=== PATIENT | female | born 1940 | race Caucasian/White ===

== ENCOUNTER → 2016-11-02 | Outpatient (CLI) | payer BC ==
[~2016-11-02] MED LIST: ASPI81TA28 PO; BIOT10TA2 PO; CALCTAB5 PO; DVN80 PO; LEVO88TA PO; MULTCHW PO
--- NOTE | 2016-11-02 09:46 | DIAGNOSTIC IMAGING REPORT ---
RIGHT KNEE 4 OR MORE CLINICAL HISTORY: RIGHT MEDIAL KNEE PAIN Right COMPARISON: None. DISCUSSION: The bones and joint spaces appear intact. There is no evidence of fracture, dislocation or bony disease. There is no evidence for soft tissue swelling. IMPRESSION: Negative study. Electronically signed by: Arjun Rangel M.D. 11/02/2016 9:43 AM Dictated Date/Time: 11/02/2016 9:42 AM
== END | disposition home or self-care (01) ==
LOC: C.RDSM 09:17
PROVIDERS: ATTEND Physician Assistant
DX: M25.561 Pain in right knee (principal)

== ENCOUNTER → 2016-11-25 | Outpatient (CLI) | payer BC ==
[2016-11-25 12:11] LABS: THYROID STIMULATING HORMONE 0.598 uIu/ml (0.300-4.500)
== END | disposition home or self-care (01) ==
LOC: C.LAB 11:07
PROVIDERS: ATTEND Physician Assistant
DX: E03.9 Hypothyroidism, unspecified (principal)

== ENCOUNTER → 2017-02-01 | Outpatient (CLI) | payer BC ==
[2017-02-01 09:37] LABS: HEMATOCRIT 39.7 % (37-47); MEAN CELL VOLUME 90.8 fL (80-100); MEAN PLATELET VOLUME 10.2 fL (7.4-10.4); PLATELET COUNT 276 K/uL (130-400); RED BLOOD COUNT 4.37 M/uL (4.2-5.4); WHITE BLOOD COUNT 4.34 K/uL (4.8-10.8)
[2017-02-01 10:00] LABS: ALT/SGPT 27 U/L (12-78); AST/SGOT 26 U/L (15-37); BLOOD UREA NITROGEN 15 mg/dl (7-18); BUN/CREATININE RATIO 17.8 (10-20); CARBON DIOXIDE 28 mmol/L (21-32); CHLORIDE 109 mmol/L (98-107); CHOLESTEROL 211 mg/dl (0-200); CREATININE 0.83 mg/dl (0.60-1.20); GLUCOSE 81 mg/dl (70-99); POTASSIUM 4.5 mmol/L (3.5-5.1); SODIUM 143 mmol/L (136-145); TRIGLYCERIDES 112 mg/dl (0-150); VERY LOW DENSITY LIPOPROT CALC 22 mg/dl
[2017-02-01 10:11] LABS: CHOLESTEROL/HDL RATIO 2.6; HDL CHOLESTEROL 80 mg/dl; LDL CHOLESTEROL CALCULATED 109 mg/dl; THYROID STIMULATING HORMONE 0.726 uIu/ml (0.300-4.500)
== END | disposition home or self-care (01) ==
LOC: C.LAB 07:03
PROVIDERS: ATTEND Internal Medicine Cardiovascular Disease
DX: E78.5 Hyperlipidemia, unspecified (principal); I10 Essential (primary) hypertension; I25.10 Atherosclerotic heart disease of native coronary artery without angina pectoris; I44.4 Left anterior fascicular block; R00.2 Palpitations; Z95.5 Presence of coronary angioplasty implant and graft; E03.9 Hypothyroidism, unspecified

== ENCOUNTER → 2017-03-30 | Outpatient (CLI) | payer BC ==
--- NOTE | 2017-03-31 14:21 | MAMMOGRAPHY REPORT ---
BILATERAL DIGITAL SCREENING MAMMOGRAM WITH CAD: 03/30/2017 CLINICAL HISTORY: Routine screening. Patient has no complaints. TECHNIQUE: Bilateral CC, MLO, right ML and right XCCM views were obtained. Current study was also ev aluated with a Computer Aided Detection (CAD) system. COMPARISON: Comparison is made to exams dated: 06/19/2015 mammogram, 10/19/2012 mammogram, 07/30/2011 ma mmogram, and 05/28/2010 mammogram. BREAST COMPOSITION: The tissue of both breasts is extremely dense, which lowers the sensitivity of m ammography. FINDINGS: There are stable benign-appearing calcifications and minimal vascular calcifications in bot h breasts. No suspicious mass, architectural distortion or cluster of microcalcifications is seen. IMPRESSION: ACR BI-RADS CATEGORY 1: NEGATIVE There is no mammographic evidence of malignancy. A 1 year screening mammogram is recommended. The pa tient will receive written notification of the results. Approximately 10% of breast cancers are not detected with mammography. A negative mammographic report should not delay biopsy if a clinically suggestive mass is present. Sujata Zuniga M.D. ay/:03/30/2017 16:38:40 Fishing Instructor: Maria Luz Anderson, [facility] letter sent: Normal 1/2 BI-RADS Code: ACR BI-RADS Category 1: Negative
== END | disposition home or self-care (01) ==
LOC: C.MAMM 13:00
PROVIDERS: ATTEND Family Medicine
DX: Z12.31 Encounter for screening mammogram for malignant neoplasm of breast (principal)

== ENCOUNTER → 2017-08-06 | Outpatient (CLI) | payer BC ==
[2017-08-06 09:31] LABS: HEMATOCRIT 40.7 % (37-47); HEMOGLOBIN 13.9 g/dL (12.0-16.0); MEAN CELL VOLUME 90.6 fL (80-100); MEAN CORPUSCULAR HGB CONC 34.2 g/dl (32-36); MEAN PLATELET VOLUME 10.5 fL (7.4-10.4); PLATELET COUNT 252 K/uL (130-400); RED CELL DISTRIBUTION WIDTH CV 12.5 % (11.5-14.5); RED CELL DISTRIBUTION WIDTH SD 41.7 fL (36.4-46.3); WHITE BLOOD COUNT 4.79 K/uL (4.8-10.8)
[2017-08-06 09:57] LABS: ALBUMIN 3.9 gm/dl (3.4-5.0); ALT/SGPT 22 U/L (12-78); AST/SGOT 17 U/L (15-37); BLOOD UREA NITROGEN 15 mg/dl (7-18); CARBON DIOXIDE 29 mmol/L (21-32); CREATININE 0.83 mg/dl (0.60-1.20); GLUCOSE 84 mg/dl (70-99); POTASSIUM 4.5 mmol/L (3.5-5.1); SODIUM 139 mmol/L (136-145)
[2017-08-06 09:59] LABS: ALKALINE PHOSPHATASE 68 U/L (45-117); TOTAL PROTEIN 7.4 gm/dl (6.4-8.2)
== END | disposition home or self-care (01) ==
LOC: C.LAB 07:43
PROVIDERS: ATTEND Physician Assistant
DX: I25.10 Atherosclerotic heart disease of native coronary artery without angina pectoris (principal)

== ENCOUNTER → 2017-09-15 | Outpatient (CLI) | payer BC ==
[2017-09-15 10:02] LABS: EOS % 2.3 %; EOS ABS # 0.09 K/uL (0-0.5); HEMOGLOBIN 12.9 g/dL (12.0-16.0); LYMPH % 30.2 %; LYMPH ABS # 1.19 K/uL (1.2-3.4); MEAN CELL VOLUME 88.9 fL (80-100); MEAN CORPUSCULAR HGB CONC 34.9 g/dl (32-36); MEAN PLATELET VOLUME 9.5 fL (7.4-10.4); MONO % 7.6 %; NEUT % 59.9 %; NEUT ABS # 2.36 K/uL (1.4-6.5); PLATELET COUNT 218 K/uL (130-400); RED CELL DISTRIBUTION WIDTH CV 12.4 % (11.5-14.5); RED CELL DISTRIBUTION WIDTH SD 39.5 fL (36.4-46.3); WHITE BLOOD COUNT 3.94 K/uL (4.8-10.8)
[2017-09-15 10:30] LABS: BLOOD UREA NITROGEN 11 mg/dl (7-18); CALCIUM 8.9 mg/dl (8.5-10.1); CARBON DIOXIDE 28 mmol/L (21-32); CREATININE 0.85 mg/dl (0.60-1.20); GLUCOSE 144 mg/dl (70-99); POTASSIUM 4.5 mmol/L (3.5-5.1); SODIUM 139 mmol/L (136-145)
== END | disposition home or self-care (01) ==
LOC: C.LAB1850 09-14 12:24 → C.LAB 09:21
PROVIDERS: ATTEND Family Medicine
DX: R42 Dizziness and giddiness (principal)

== ENCOUNTER → 2017-10-08 | Outpatient (CLI) | payer BC ==
--- NOTE | 2017-10-08 10:19 | DIAGNOSTIC IMAGING REPORT ---
CERVICAL SPINE 4 VIEWS HISTORY: M54.2 Cervicalgia COMPARISON: None. FINDINGS: The cervical spine is visualized from C1 through the superior endplate of T1. There is no fracture. No subluxation. Mild disc space narrowing at C3-C4. Moderate disc space narrowing at C5-C6 and C6-C7 with small endplate osteophytes. Mild facet degenerative changes throughout the cervical spine. Straightening of the cervical spine. Bilateral carotid bulb calcifications. Prevertebral soft tissues and the atlantodens interval are intact. IMPRESSION: No fracture or subluxation within the cervical spine. Mild to moderate degenerative changes as described above. Electronically signed by: Fritz Kent M.D. 10/08/2017 10:18 AM Dictated Date/Time: 10/08/2017 10:16 AM
== END | disposition home or self-care (01) ==
LOC: C.RAD1850 09:39
PROVIDERS: ATTEND Family Medicine
DX: M54.2 Cervicalgia (principal)

== ENCOUNTER 2018-02-03 10:02 | Emergency (ER) | payer BC ==
[~2018-02-03] VITALS: Ht 160 cm; Wt 48.7 kg
[2018-02-03 10:37] LABS: EOS % 2.7 %; EOS ABS # 0.14 K/uL (0-0.5); HEMATOCRIT 43.4 % (37-47); IG# 0.01 K/uL (0.00-0.02); LYMPH % 39.3 %; LYMPH ABS # 2.01 K/uL (1.2-3.4); MEAN CELL VOLUME 89.1 fL (80-100); MEAN CORPUSCULAR HEMOGLOBIN 30.8 pg (25-34); MEAN CORPUSCULAR HGB CONC 34.6 g/dl (32-36); MEAN PLATELET VOLUME 9.8 fL (7.4-10.4); MONO % 11.4 %; MONO ABS # 0.58 K/uL (0.11-0.59); NEUT % 46.4 %; NEUT ABS # 2.37 K/uL (1.4-6.5); PLATELET COUNT 254 K/uL (130-400); RED CELL DISTRIBUTION WIDTH CV 12.6 % (11.5-14.5); RED CELL DISTRIBUTION WIDTH SD 40.6 fL (36.4-46.3); WHITE BLOOD COUNT 5.11 K/uL (4.8-10.8)
--- NOTE | 2018-02-03 10:43 | EMERGENCY ROOM VISIT NOTE ---
History Report prepared by Andrzej: Sarahy Mckenzie Under the Supervision of: Dr. Michelle Bahena M.D. First contact with patient: 10:20 Chief Complaint: CHEST PAIN Stated Complaint: CHEST PAIN - BOTH ARMS AND NECK History of Present Illness The patient is a 77 year old female who presents to the Emergency Room with complaints of intermittent chest pressure starting 3 days ago. The pain started while she was pulling a 100 ft rubber hose in the yard. She feels SOB with the chest pain. She has numb sensation going up her neck and down her arms. She currently does not have any pain. The pain was worse while she was shopping today. It improves after resting. She took 4 baby aspirin today. She denies any diaphoresis, cough, or trouble breathing with lying flat. She had an LAD stent placed 11 years ago. She has a history of osteopenia, high cholesterol, high blood pressure, and hypothyroidism. Her last thyroid test was found to be high. She has been fatigued recently. She walks 3 miles a day. She has leg cramping afterwards. Her calves ache in the evening since having her stent placed. She took her blood pressure medications today. She does not smoke. She has left ankle swelling at baseline. She is allergic to nitro. Source of History: patient Onset: 3 days ago Position: chest Quality: pressure Timing: intermittent Modifying Factors (Worsening): exertion Modifying Factors (Relieving): rest Associated Symptoms: + SOB, + fatigue, + numbness, No diaphoresis, No cough Review of Systems See HPI for pertinent positives & negatives. A total of 10 systems reviewed and were otherwise negative. Past Medical & Surgical Medical Problems: (1) Chest Pain Surgical Problems: (1) Hx of cholecystectomy (2) Hx of heart artery stent Family History Cancer FH: heart disease Hypertension Social History Smoking Status: Never Smoker Alcohol Use: none Marital Status: Occupation Status: retired Current/Historical Medications Scheduled Aspirin (Aspirin Ec), 81 MG PO DAILY Calcium Carbonate-Vitamin D (Calcium), 1 TAB PO TW Hydrochlorothiazide (Hctz), 0.5 TAB PO QAM Levothyroxine Sodium (Synthroid), 88 MCG PO DAILY Multiple Vitamins W/ Minerals (Centrum Silver), 1 TAB PO DAILY Pantoprazole Sodium (Protonix), 40 MG PO QAM Pravastatin Sod (Pravastatin Sodium), 10 MG PO HS Valsartan (Diovan), 80 MG PO BID Allergies Coded Allergies: Doxycycline (Verified Allergy, Unknown, rash , 02/03/18) Metoprolol (Verified Allergy, Unknown, severe rash over entire body, ) Penicillins (Verified Allergy, Unknown, rash, 02/03/18) Atorvastatin (Verified Adverse Reaction, Unknown, causes sereve weakness and chest pain, do not give, 02/03/18) Ezetimibe (Verified Adverse Reaction, Unknown, causes sereve weakness and chest pain, do not give, 02/03/18) Nitroglycerin (Verified Adverse Reaction, Unknown, severe drop in blood pressure , 02/03/18) Rosuvastatin (Verified Adverse Reaction, Unknown, causes sereve weakness and chest pain, do not give, 02/03/18) Physical Exam Vital Signs Date Time Temp Pulse Resp B/P (MAP) Pulse Ox O2 Delivery O2 Flow Rate FiO2 02/03/18 11:54 68 17 171/89 02/03/18 10:39 76 02/03/18 10:28 75 182/80 02/03/18 10:14 Room Air 02/03/18 10:08 36.6 74 17 187/104 100 Room Air Physical Exam Vital signs reviewed. General: Well-appearing female, in no significant distress. HEENT: No scleral icterus, PERRLA, neck supple. Atraumatic. Cardiovascular: Regular rate and rhythm, no extra sounds. Pulmonary: Clear to auscultation bilaterally, normal work of breathing. Abdomen: Soft, nontender, nondistended, positive bowel sounds. Musculoskeletal: Atraumatic, no pitting edema. Neurologic: Patient awake alert and oriented x 3 Skin: Warm, dry, no rash. Prominent varicosities surrounding the left ankle. Medical Decision & Procedures ER Provider Diagnostic Interpretation: X-ray results as stated below per interpretation by me and the radiologist: CHEST ONE VIEW PORTABLE HISTORY: Atypical chest pain COMPARISON: Chest 04/10/2016. FINDINGS: The lungs are clear. Cardiac silhouette is top normal in size. This remains unchanged. No pleural effusions. No pneumothorax. IMPRESSION: No significant change compared to the prior study. No acute process. Electronically signed by: Fritz Kent M.D. 02/03/2018 10:42 AM Dictated Date/Time: 02/03/2018 10:41 AM Laboratory Results 02/03/18 10:20 Red Blood Count 4.87, Mean Corpuscular Volume 89.1, Mean Corpuscular Hemoglobin 30.8, Mean Corpuscular Hemoglobin Concent 34.6, Mean Platelet Volume 9.8, Neutrophils (%) (Auto) 46.4, Lymphocytes (%) (Auto) 39.3, Monocytes (%) (Auto) 11.4, Eosinophils (%) (Auto) 2.7, Basophils (%) (Auto) 0.0, Neutrophils # (Auto ) 2.37, Lymphocytes # (Auto) 2.01, Monocytes # (Auto) 0.58, Eosinophils # (Auto ) 0.14, Basophils # (Auto) 0.00 02/03/18 10:20 Test 02/03/18 10:20 02/03/18 10:27 White Blood Count 5.11 K/uL (4.8-10.8) Red Blood Count 4.87 M/uL (4.2-5.4) Hemoglobin 15.0 g/dL (12.0-16.0) Hematocrit 43.4 % (37-47) Mean Corpuscular Volume 89.1 fL (80-100) Mean Corpuscular Hemoglobin 30.8 pg (25-34) Mean Corpuscular Hemoglobin Concent 34.6 g/dl (32-36) Platelet Count 254 K/uL (130-400) Mean Platelet Volume 9.8 fL (7.4-10.4) Neutrophils (%) (Auto) 46.4 % Lymphocytes (%) (Auto) 39.3 % Monocytes (%) (Auto) 11.4 % Eosinophils (%) (Auto) 2.7 % Basophils (%) (Auto) 0.0 % Neutrophils # (Auto) 2.37 K/uL (1.4-6.5) Lymphocytes # (Auto) 2.01 K/uL (1.2-3.4) Monocytes # (Auto) 0.58 K/uL (0.11-0.59) Eosinophils # (Auto) 0.14 K/uL (0-0.5) Basophils # (Auto) 0.00 K/uL (0-0.2) RDW Standard Deviation 40.6 fL (36.4-46.3) RDW Coefficient of Variation 12.6 % (11.5-14.5) Immature Granulocyte % (Auto) 0.2 % Immature Granulocyte # (Auto) 0.01 K/uL (0.00-0.02) Anion Gap 6.0 mmol/L (3-11) Est Creatinine Clear Calc Drug Dose 38.4 ml/min Estimated GFR () 68.7 Estimated GFR (Non- 59.3 BUN/Creatinine Ratio 10.9 (10-20) Calcium Level 9.3 mg/dl (8.5-10.1) Magnesium Level 2.3 mg/dl (1.8-2.4) Total Bilirubin 0.7 mg/dl (0.2-1) Direct Bilirubin 0.2 mg/dl (0-0.2) Aspartate Amino Transf (AST/SGOT) 31 U/L (15-37) Alanine Aminotransferase (ALT/SGPT) 32 U/L (12-78) Alkaline Phosphatase 77 U/L (45-117) Total Protein 8.4 gm/dl (6.4-8.2) Albumin 4.5 gm/dl (3.4-5.0) Thyroid Stimulating Hormone (TSH) 0.437 uIu/ml (0.300-4.500) Free Thyroxine 1.23 ng/dl (0.80-1.60) Bedside Troponin I < 0.030 ng/ml (0-0.045) Laboratory results per my review. ECG Per My Interpretation Indication: chest pain Rate (beats per minute): 67 Rhythm: normal sinus Findings: LAFB, no acute ischemic change, no ectopy, other (left atrial enlargement, RSR' suggests right ventricular conduction delay) ED Course 1022: Past medical records reviewed. The patient was evaluated in room C4. A complete history and physical examination was performed. 1120: I discussed the patient's case with Dr. Vyas, [facility] cardiology. He recommends observation in the hospital. 1123: I reviewed the patient's case with Lashonda Craig PA-C [facility] hospitalist. She will evaluate the patient for further management. 1132: Upon reevaluation, the patient is resting comfortably. I discussed laboratory and radiographic results with her. She verbalized agreement of the treatment plan. The patient will be evaluated for further management and care. Medical Decision Differential diagnoses includes acute coronary syndrome, pulmonary embolus, aortic dissection, musculoskeletal pain, pneumonia, pleural effusion, pneumothorax, gastritis, peptic ulcer disease. This patient was evaluated and appeared to be in no significant distress. Patient complained of some throat tightness but declines nitroglycerin and she states she is allergic. Patient did take aspirin prior to arrival. Chest x- ray was performed and is clear. EKG reveals no evidence of acute ischemic change. Patient's laboratory work reveals negative cardiac enzyme. Given the patient's history of CAD with stenting, I did speak with Dr. Vyas, who is covering for her primary percussion instrument tuner. He agrees with observation for further cardiac rule out. Patient and daughter feel comfortable with this plan and agree. The hospitalist service was consulted. Medication Reconcilliation Current Medication List: was personally reviewed by me Blood Pressure Screening Patient's blood pressure: Elevated blood pressure Referred to hospitalist Consults Time Called: 1119 Consulting Physician: Dr. Vyas, [facility] cardiology Returned Call: 1120 I discussed the patient's case with him. He recommends observation in the hospital. Additional Consults: Time Called: 1122 Consulted Physician: Lashonda Craig PA-C [facility] hospitalist Returned Call: 1123 Additional Comments: I reviewed the patient's case with her. She will evaluate the patient for further management. Impression Primary Impression: Unstable angina Scribe Attestation The scribe's documentation has been prepared under my direction and personally reviewed by me in its entirety. I confirm that the note above accurately reflects all work, treatment, procedures, and medical decision making performed by me. Departure Information Dispostion Being Evaluated By Hospitalist Prescriptions Pantoprazole Sodium (PROTONIX) 40 Mg Tab 40 MG PO QAM for 14 Days, #14 TAB Prov: Donna Duong MD 02/04/18 Hydrochlorothiazide (HCTZ) 25 Mg Tab 0.5 TAB PO QAM for 30 Days, #15 TAB 0 Refills Prov: Donna Duong MD 02/04/18 Patient Instructions My [facility]
[2018-02-03] MEDS ORDERED: PRVC10 PO (10:48)
[2018-02-03] MEDS ORDERED: CALC-51 PO (10:49)
[2018-02-03 11:03] LABS: ALBUMIN 4.5 gm/dl (3.4-5.0); ALKALINE PHOSPHATASE 77 U/L (45-117); ALT/SGPT 32 U/L (12-78); AST/SGOT 31 U/L (15-37); BLOOD UREA NITROGEN 10 mg/dl (7-18); CALCIUM 9.3 mg/dl (8.5-10.1); CARBON DIOXIDE 28 mmol/L (21-32); CREATININE 0.93 mg/dl (0.60-1.20); GLUCOSE 87 mg/dl (70-99); POTASSIUM 4.5 mmol/L (3.5-5.1); SODIUM 139 mmol/L (136-145); TOTAL PROTEIN 8.4 gm/dl (6.4-8.2)
[2018-02-03] MEDS ORDERED: MAGNESIUM HYDROXIDE SUSP 30 ML UDC PO PRN (12:45)
[2018-02-03] MEDS ORDERED: MoRPHine SULFATE 4 MG/ML 1 ML CARP\\VIAL IV PRN (12:45)
[2018-02-03] MEDS ORDERED: ACETAMINOPHEN 325 MG TAB PO PRN (12:45)
[2018-02-03] MEDS ORDERED: ONDANSETRON INJ 2 MG/ML 2 ML VIAL IV PRN (12:45)
[2018-02-03] MEDS ORDERED: POLYETHYLENE (MIRALAX) 17 GM PACK PO PRN (12:45)
[2018-02-03] MEDS ORDERED: ALUMINUM/MAGNESIUM/SIMETH (MAALOX MAX) 30 ML UDC PO PRN (12:45)
--- NOTE | 2018-02-03 12:54 | History and Physical ---
History & Physical Date & Time of Service: Feb 03, 2018 at 12:52 Chief Complaint: Chest Pain - Both Arms And Neck Primary Care Physician: Joyce Lester MD History of Present Illness Source: patient, family Ms. Sandoval is a 77 y/o female with PMHx of CAD S/P LAD PCI, Hypothyroidism S/P Partial Thyroidectomy, HTN, HLD, and GERD who presents to the ED c/o 3-5 days of intermittent CP. Patient states she was doing yard work the other day and pulling a hose when she develop lower sternal chest pressure with radiation up her sternum and into b/l arms. She states it was a pressure sensation with the feeling of needing to catch her breath. She states she also had a squeezing sensation into the throat. She reports associated intermittent numbness into the arms. She states this pain went away with rest. She states she did have some of this same discomfort when she woke up this AM but it improved and did a little yard work with symptoms returning. However, again these symptoms reduced and she went shopping when her pains started again. She is currently pain free and it is not reproducible. She states this is not similar to when she needed her stent as she had sharp neck pain during that episode. She is a very active individual and doesn't endorse chronic angina. She did take 4 baby aspirin today but does not utilize nitro due to significant hypotension. Past Medical/Surgical History 1. CAD S/P LAD PCI 2. HTN 3. HLD 4. GERD 5. S/P Cholecystectomy 6. Hypothyroidism S/P Partial Thyroidectomy 2/2 Degenerative Lobe (patient report) 7. S/P Tonsillectomy Family History Cancer FH: heart disease Hypertension Social History Smoking Status: Never Smoker Smokeless Tobacco Use: No Alcohol Use: none Drug Use: none Occupational Status: retired Allergies Coded Allergies: Doxycycline (Verified Allergy, Unknown, rash , 02/03/18) Metoprolol (Verified Allergy, Unknown, severe rash over entire body, ) Penicillins (Verified Allergy, Unknown, rash, 02/03/18) Atorvastatin (Verified Adverse Reaction, Unknown, causes sereve weakness and chest pain, do not give, 02/03/18) Ezetimibe (Verified Adverse Reaction, Unknown, causes sereve weakness and chest pain, do not give, 02/03/18) Nitroglycerin (Verified Adverse Reaction, Unknown, severe drop in blood pressure , 02/03/18) Rosuvastatin (Verified Adverse Reaction, Unknown, causes sereve weakness and chest pain, do not give, 02/03/18) Home Medications Scheduled Aspirin (Aspirin Ec), 81 MG PO DAILY Calcium Carbonate-Vitamin D (Calcium), 1 TAB PO TW Levothyroxine Sodium (Synthroid), 88 MCG PO DAILY Multiple Vitamins W/ Minerals (Centrum Silver), 1 TAB PO DAILY Pravastatin Sod (Pravastatin Sodium), 10 MG PO HS Valsartan (Diovan), 80 MG PO BID Review of Systems Constitutional: No fever, No chills ENT: No nasal symptoms, No sore throat Respiratory: + shortness of breath (intermittent with CP), No cough Cardiovascular: + chest pain, No orthopnea, No palpitations Abdomen: No pain, No nausea, No vomiting, No diarrhea, No constipation Musculoskeletal: No swelling, No calf pain Genitourinary - Female: No dysuria Hematologic / Lymphatic: No abnormal bleeding/bruising Integumentary: No rash Physical Exam Vital Signs Date Time Temp Pulse Resp B/P (MAP) Pulse Ox O2 Delivery O2 Flow Rate FiO2 02/03/18 11:54 68 17 171/89 02/03/18 10:39 76 02/03/18 10:28 75 182/80 02/03/18 10:14 Room Air 02/03/18 10:08 36.6 74 17 187/104 100 Room Air General Appearance: WD/WN, no apparent distress Head: normocephalic, atraumatic Eyes: sclerae normal ENT: hearing grossly normal Neck: supple, no JVD, trachea midline Respiratory/Chest: chest non-tender, lungs clear, normal breath sounds, no respiratory distress, no accessory muscle use Cardiovascular: regular rate, rhythm, no gallop, no murmur Abdomen/GI: normal bowel sounds, non tender, soft Back: normal inspection Extremities/Musculoskelatal: no calf tenderness, no pedal edema Neurologic/Psych: alert, oriented x 3 Skin: normal color, warm/dry Diagnostics Laboratory Results Results Past 24 Hours Test 02/03/18 10:20 02/03/18 10:27 Range/Units White Blood Count 5.11 4.8-10.8 K/uL Red Blood Count 4.87 4.2-5.4 M/uL Hemoglobin 15.0 12.0-16.0 g/dL Hematocrit 43.4 37-47 % Mean Corpuscular Volume 89.1 80-100 fL Mean Corpuscular Hemoglobin 30.8 25-34 pg Mean Corpuscular Hemoglobin Concent 34.6 32-36 g/dl Platelet Count 254 130-400 K/uL Mean Platelet Volume 9.8 7.4-10.4 fL Neutrophils (%) (Auto) 46.4 % Lymphocytes (%) (Auto) 39.3 % Monocytes (%) (Auto) 11.4 % Eosinophils (%) (Auto) 2.7 % Basophils (%) (Auto) 0.0 % Neutrophils # (Auto) 2.37 1.4-6.5 K/uL Lymphocytes # (Auto) 2.01 1.2-3.4 K/uL Monocytes # (Auto) 0.58 0.11-0.59 K/uL Eosinophils # (Auto) 0.14 0-0.5 K/uL Basophils # (Auto) 0.00 0-0.2 K/uL RDW Standard Deviation 40.6 36.4-46.3 fL RDW Coefficient of Variation 12.6 11.5-14.5 % Immature Granulocyte % (Auto) 0.2 % Immature Granulocyte # (Auto) 0.01 0.00-0.02 K/uL Sodium Level 139 136-145 mmol/L Potassium Level 4.5 3.5-5.1 mmol/L Chloride Level 105 98-107 mmol/L Carbon Dioxide Level 28 21-32 mmol/L Anion Gap 6.0 3-11 mmol/L Blood Urea Nitrogen 10 7-18 mg/dl Creatinine 0.93 0.60-1.20 mg/dl Est Creatinine Clear Calc Drug Dose 38.4 ml/min Estimated GFR () 68.7 Estimated GFR (Non- 59.3 BUN/Creatinine Ratio 10.9 10-20 Random Glucose 87 70-99 mg/dl Calcium Level 9.3 8.5-10.1 mg/dl Magnesium Level 2.3 1.8-2.4 mg/dl Total Bilirubin 0.7 0.2-1 mg/dl Direct Bilirubin 0.2 0-0.2 mg/dl Aspartate Amino Transf (AST/SGOT) 31 15-37 U/L Alanine Aminotransferase (ALT/SGPT) 32 12-78 U/L Alkaline Phosphatase 77 45-117 U/L Troponin I < 0.015 0-0.045 ng/ml Total Protein 8.4 6.4-8.2 gm/dl Albumin 4.5 3.4-5.0 gm/dl Thyroid Stimulating Hormone (TSH) 0.437 0.300-4.500 uIu/ml Free Thyroxine 1.23 0.80-1.60 ng/dl Bedside Troponin I < 0.030 0-0.045 ng/ml Diagnostic Radiology CHEST ONE VIEW PORTABLE FINDINGS: The lungs are clear. Cardiac silhouette is top normal in size. This remains unchanged. No pleural effusions. No pneumothorax. IMPRESSION: No significant change compared to the prior study. No acute process. EKG Normal sinus rhythm Possible Left atrial enlargement RSR' or QR pattern in V1 suggests right ventricular conduction delay Left anterior fascicular block Abnormal ECG When compared with ECG of 10-APR-2016 15:48, No significant change was found Impression Assessment and Plan Ms. Sandoval is a 77 y/o female with PMHx of CAD S/P LAD PCI, Hypothyroidism S/P Partial Thyroidectomy, HTN, HLD, and GERD who presents to the ED c/o 3-5 days of intermittent CP. Chest Pain: - There is an element of atypical presentation but some that suggests exertional CP - troponins are currently negative and will trend and monitor on telemetry - Will consult cardiology given that she normally doesn't have chest pain and to get thoughts on possible unstable angina? Currently is CP free - Will use morphine PRN for CP; will hold on NTG use given her significant hypotension - ASA 81 mg daily, Valsartan 80 mg BID and Pravastatin 10 mg HS; reviewed outpatient records and had an intolerance to Metoprolol (rash) - Check Lipid profile in AM Hypertension/HLD: - Patient has elevated pressures and discussed this with her - she states she normally has systolics in 120-130s at home and is documented as outpatient that they run high in the office but appear to be improved at home - may have some white coat syndrome that the patient reports she likely does have - Will not overcorrect - she did take her Diovan this AM and given her significant sensitivity to these medications I would not want to drastically lower her BP - will monitor - Continue Diovan and Pravastatin Hypothyroidism: - 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 Discussed with PALLAVI Craig and agree with findings and plan as documented in the note. Any exceptions or clarifications are listed here: Ms. Sandoval is a 77 y/o female with PMHx of CAD S/P LAD PCI, Hypothyroidism S/P Partial Thyroidectomy, HTN, HLD, and GERD who presents to the ED c/o 3-5 days of intermittent CP. When I saw her after admission, she said that all day long the chest tightness was coming and going even when just sitting in the bed or chair. It was going away on its own. She did not tell anybody about it. Despite this, she has had 2 negative troponins so far. It is no longer radiating down her arms bilaterally. She reports also having some sharp pains in the epigastric region which she describes as her "indigestion pain." She does not want to take Maalox as that makes her nauseated, she is agreeable to try Tums. Nitroglycerin drops her blood pressure very low, and she declines the need for morphine at the time I saw her. She does describe some associated shortness of breath when chest tightness comes on. She has not had any recent long travel. She is certainly not sedentary and walks on treadmill on a daily basis. No leg swelling except for chronic mild swelling in the left leg from varicose veins. Vitals reviewed Gen: AAOx3, NAD HEENT: anicteric sclerae, EOMI CV: RRR no mgr nl S1S2 Pulm: CTAB no wcr Abd: +BS soft NT ND no masses or hernias Ext: no edema, 2+ DP pulses, left leg with large varicose veins Skin: no rashes, warm/dry Neuro: full strength throughout 77-year-old female with history as above here with atypical chest pain and some associated shortness of breath. Given history of severe CAD, needs to come in to rule out acute coronary syndrome. Would add on a d-dimer and if negative, no further workup for PE. If d-dimer positive, would get CT angiogram chest to rule out PE. Appreciate cardiology consultation -If troponin is negative, will order stress echocardiogram for tomorrow. Documented By: Donna Duong
[2018-02-03 13:10] VITALS: Ht 160 cm; Wt 48.7 kg
[2018-02-03 13:30] VITALS: BP 182/79; PULSE 79; TEMP 36.7; O2SAT 99
[2018-02-03] MEDS ORDERED: IV FLUIDS COMPLETED PRN (14:00)
--- NOTE | 2018-02-03 14:57 | Cardiology Consultation ---
Cardiology Consultation Date of Consultation: Feb 03, 2018. Requesting Physician: Ad Reason for Consultation: Chest pain Pt evaluation today including: conversation w/ patient, physical exam, chart review, lab review, review of studies, review of inpatient medication list, conversation w/ attending History of Present Illness The patient is a 77-year-old woman with a history of coronary artery disease having previously undergone percutaneous intervention involving the LAD in 2007. Patient states she was in her usual state of health until approximately 3- 4 days ago when she began experience symptoms of both epigastric and chest discomfort. She describes the initial symptom as starting in her abdomen and progressing to the precordial area was described as a squeezing sensation which waxed and waned in severity. It did involve some sense of paresthesias in the arms at times. She has symptoms both at rest and with activity. She also had no symptoms with activity on occasion. She did not report overt breathing difficulty but appeared to have difficulty taking a deep breath while she felt this discomfort. The episodes themselves would often resolve with discontinuation of activity or rest. However on occasion they were persistent in nature. The did not appear to respond to aspirin or changes in position. She had several episodes over the course of several days. Episodes could last up to an hour. This morning the patient was at the grocery store with her daughter when she began to have this same symptom. This occurred with simple walking and pushing an empty grocery cart. The symptoms became quite severe in nature and the patient felt that in evaluation was warranted. However, she and her daughter finish her shopping prior to coming to [facility]. She feels that she had discomfort for over an hour before she arrived at the [facility]. Currently she has no symptoms. In general she is an active individual was accustomed routine exercise such as walking on a treadmill and performing yard work. She has not report symptoms of this nature with that activity. She generally has no limiting dyspnea. She has not had symptoms of chest discomfort otherwise. She generally does not have dizziness but did have 1 transient episode of lightheadedness a few weeks ago. She has never had syncope. Her current symptoms are distinct from those which she experienced prior to her stent in 2007. At that time she had shooting pains in the left neck. Past Medical/Surgical History Coronary artery disease status post PCI to the LAD in 2007 Hyperlipidemia with statin intolerance Arthritis Hypertension Gastroesophageal reflux disease Vitamin-D Dificid she Hypothyroidism Palpitations Gout Cholecystitis Past surgical history: Cholecystectomy Thyroidectomy Tonsillectomy Tubal ligation Family History Cancer FH: heart disease Hypertension Noncontributory given her advanced age. Positive for premature coronary disease Social History Smoking Status: Never Smoker History of Alcohol Use: No Review of Systems Per HPI. Patient did not report any changes in her bowel or bladder habits. She denies any dysphagia or odynophagia. No recent nausea or vomiting. No diarrhea. No melena. No bright red blood per rectum. No swelling in her lower extremities. She does have occasional sense of palpitation which is not been bothersome for several months. Allergies Coded Allergies: Doxycycline (Verified Allergy, Unknown, rash , 02/03/18) Metoprolol (Verified Allergy, Unknown, severe rash over entire body, ) Penicillins (Verified Allergy, Unknown, rash, 02/03/18) Atorvastatin (Verified Adverse Reaction, Unknown, causes sereve weakness and chest pain, do not give, 02/03/18) Ezetimibe (Verified Adverse Reaction, Unknown, causes sereve weakness and chest pain, do not give, 02/03/18) Nitroglycerin (Verified Adverse Reaction, Unknown, severe drop in blood pressure , 02/03/18) Rosuvastatin (Verified Adverse Reaction, Unknown, causes sereve weakness and chest pain, do not give, 02/03/18) Medications Current Inpatient Medications Medications (Trade) Dose Ordered Sig/Fady Route Start Time Stop Time Status Last Admin Dose Admin Acetaminophen (Tylenol Tab) 650 mg Q4H PRN PO 02/03/18 12:45 03/05/18 12:44 Al Hydrox/Mg Hydrox/Simethicone (Maalox Max Susp) 15 ml Q4H PRN PO 02/03/18 12:45 03/05/18 12:44 Magnesium Hydroxide (Milk Of Magnesia Susp) 30 ml Q12H PRN PO 02/03/18 12:45 03/05/18 12:44 Ondansetron HCl (Zofran Inj) 4 mg Q6H PRN IV 02/03/18 12:45 03/05/18 12:44 Morphine Sulfate (MoRPHine SULFATE INJ) 2 mg Q30M PRN IV 02/03/18 12:45 02/17/18 12:44 Polyethylene (Miralax Powder Packet) 17 gm DAILY PRN PO 02/03/18 12:45 03/05/18 12:44 Aspirin (Ecotrin Tab) 81 mg DAILY PO 02/04/18 09:00 03/06/18 08:59 Levothyroxine Sodium (Synthroid Tab) 88 mcg DAILYBB PO 02/04/18 06:00 03/06/18 05:59 Pravastatin Sodium (Pravachol Tab) 10 mg HS PO 02/03/18 21:00 03/05/18 20:59 Valsartan (Diovan Tab) 80 mg BID PO 02/03/18 21:00 03/05/18 20:59 Miscellaneous (Iv Fluids Completed) 1 ea PRN PRN N/A 02/03/18 14:00 02/03/19 13:59 Physical Exam Vital Signs Past 12 Hours Date Time Temp Pulse Resp B/P (MAP) Pulse Ox O2 Delivery O2 Flow Rate FiO2 02/03/18 13:30 36.7 79 18 182/79 (113) 99 Room Air 02/03/18 13:10 Room Air 02/03/18 13:09 69 20 152/84 98 02/03/18 11:54 68 17 171/89 02/03/18 10:39 76 02/03/18 10:28 75 182/80 02/03/18 10:14 Room Air 02/03/18 10:08 36.6 74 17 187/104 100 Room Air She is alert and oriented x3. Mood affect appear normal. She answered all questions appropriately. HEENT: Sclerae are anicteric. Pupils are equal and reactive to light and accommodation. Extraocular movements were intact. Neuro: Cranial nerves intact Neck: Examination of the submandibular region did not reveal any significant lymphadenopathy. Carotids are palpable bilaterally and free of bruits on auscultation. There was no evidence of jugular venous distention. The thyroid was not enlarged. Lungs: Lungs are clear to auscultation bilaterally. There are no rales wheezes or rhonchi. She has normal respiratory effort without use of accessory muscles. There is normal pulmonary excursion. Cardiac: The rhythm was regular. S1 and S2 were normal. There are no murmurs on examination. The PMI was not markedly displaced on palpation. Abdomen: The abdomen was soft and nontender. Extremities: Patient has bilateral radial pulses that are equal in intensity. There is no evidence cyanosis or clubbing. There was no evidence of significant peripheral edema bilaterally. Skin: There are no rashes noted on examination today. Data Laboratory Results: Last 24 Hours Test 02/03/18 10:20 02/03/18 10:27 White Blood Count 5.11 K/uL Red Blood Count 4.87 M/uL Hemoglobin 15.0 g/dL Hematocrit 43.4 % Mean Corpuscular Volume 89.1 fL Mean Corpuscular Hemoglobin 30.8 pg Mean Corpuscular Hemoglobin Concent 34.6 g/dl Platelet Count 254 K/uL Mean Platelet Volume 9.8 fL Neutrophils (%) (Auto) 46.4 % Lymphocytes (%) (Auto) 39.3 % Monocytes (%) (Auto) 11.4 % Eosinophils (%) (Auto) 2.7 % Basophils (%) (Auto) 0.0 % Neutrophils # (Auto) 2.37 K/uL Lymphocytes # (Auto) 2.01 K/uL Monocytes # (Auto) 0.58 K/uL Eosinophils # (Auto) 0.14 K/uL Basophils # (Auto) 0.00 K/uL RDW Standard Deviation 40.6 fL RDW Coefficient of Variation 12.6 % Immature Granulocyte % (Auto) 0.2 % Immature Granulocyte # (Auto) 0.01 K/uL Sodium Level 139 mmol/L Potassium Level 4.5 mmol/L Chloride Level 105 mmol/L Carbon Dioxide Level 28 mmol/L Anion Gap 6.0 mmol/L Blood Urea Nitrogen 10 mg/dl Creatinine 0.93 mg/dl Est Creatinine Clear Calc Drug Dose 38.4 ml/min Estimated GFR () 68.7 Estimated GFR (Non- 59.3 BUN/Creatinine Ratio 10.9 Random Glucose 87 mg/dl Calcium Level 9.3 mg/dl Magnesium Level 2.3 mg/dl Total Bilirubin 0.7 mg/dl Direct Bilirubin 0.2 mg/dl Aspartate Amino Transf (AST/SGOT) 31 U/L Alanine Aminotransferase (ALT/SGPT) 32 U/L Alkaline Phosphatase 77 U/L Troponin I < 0.015 ng/ml Total Protein 8.4 gm/dl Albumin 4.5 gm/dl Thyroid Stimulating Hormone (TSH) 0.437 uIu/ml Free Thyroxine 1.23 ng/dl Bedside Troponin I < 0.030 ng/ml Imaging: Chest x-ray did not reveal any acute cardiopulmonary process EKG: Normal sinus rhythm with left anterior fascicular block. No old myocardial infarction Telemetry reviewed: Normal sinus rhythm no arrhythmia. Cardiac perfusion study 04/2015: No evidence of ischemia or infarction. Normal left ventricular systolic function on gated images Echocardiogram 12/2016: Normal LV size and function. No significant valvular abnormalities. Normal echocardiogram Assessment & Plan 1. Chest pain: Some typical and atypical features. She certainly has a history of coronary disease but did not report symptoms similar to her angina in 2007. The symptoms have been present for several days sometimes extended in duration. No elevation in her biomarkers currently. I think would be reasonable to keep her on her outpatient medical regimen and continue trending her biomarkers. If her markers are normal would suggest provocative testing with exercise tomorrow. If indeed she has elevation in her biomarkers than proceeding to coronary angiography would seem most reasonable. 2. Coronary artery disease: Patient has been maintained on a daily aspirin and low-dose pravastatin due to an element of statin intolerance. No history of myocardial infarction. No heart indication for beta-blockade. Seems she has not tolerated beta-blockers in the past either. 3. Hyperlipidemia: On low-dose pravastatin for reasons indicated above 4. Hypertension: Currently hypertensive. Patient states that this may be related to white coat hypertension. She may benefit from addition of a diuretic , although with a history of gout perhaps a calcium channel frances such as amlodipine is more desirable. Will continue valsartan.
[2018-02-03 16:23] VITALS: BP 129/56; PULSE 60; TEMP 36.5; O2SAT 98
[2018-02-03] MEDS: VALSARTAN 80 MG TAB PO SCH (19:47)
[2018-02-03 20:11] VITALS: BP 148/66; PULSE 67; O2SAT 98
[2018-02-03] MEDS ORDERED: CALCIUM CARBONATE 500 MG CHEWABLE PO PRN (21:00)
[2018-02-03] MEDS ORDERED: PRAVASTATIN SOD 10 MG TAB PO SCH (21:00)
[2018-02-03 23:30] VITALS: O2SAT 98
[2018-02-04 00:05] VITALS: BP 137/72; PULSE 60; TEMP 36.7; O2SAT 98
[2018-02-04 03:33] VITALS: BP 154/80; PULSE 62; TEMP 36.9; O2SAT 97
[2018-02-04] MEDS ORDERED: LEVOTHYROXINE 88 MCG TAB PO SCH (06:00)
[2018-02-04 07:56] VITALS: BP 166/71; PULSE 61; TEMP 36.9; O2SAT 98
[2018-02-04] MEDS: VALSARTAN 80 MG TAB PO SCH (08:18)
[2018-02-04] MEDS ORDERED: ASPIRIN 81 MG ECTAB PO SCH (09:00)
[2018-02-04] MEDS ORDERED: PANTOprazole SOD 40 MG TAB PO STA (11:14)
[2018-02-04] MEDS ORDERED: HYDROCHLOROTHIAZIDE 25 MG TAB PO STA (11:14)
--- NOTE | 2018-02-04 11:19 | Discharge Instructions ---
Discharge Instructions Date of Service Feb 04, 2018. Admission Reason for Admission: Chest Pain Discharge Discharge Diagnosis / Problem: Chest pain-noncardiac, hypertension Discharge Goals Goal(s): Improve disease control, Diagnostic testing, Therapeutic intervention Activity Recommendations Activity Limitations: as noted below Exercise/Sports Limitations: gradually increase as tolerated Shower/Bathe: no limitations Driving or Machine Use: no limitations . Instructions / Follow-Up Instructions / Follow-Up You were admitted for chest pain. You had blood tests that showed you did not have a heart attack. Your stress test was normal. This could be from acid reflux and esophageal spasm. Please take a 2 week course of pantoprazole 40 mg once daily for acid reflux. It is very important for you to follow-up with your family physician and get a referral to gastroenterology if your symptoms do not improve. Your blood pressure was uncontrolled here and was recommended that you start on a water pill called HCTZ (hydrochlorothiazide). Please take this each morning and monitor your blood pressure at home. Please follow-up with your family physician within 1-2 weeks after discharge. Current Hospital Diet Patient's current hospital diet: AHA Diet (Heart Healthy) Discharge Diet Recommended Diet: AHA Diet (Heart Healthy) Procedures Procedures Performed: Chest x-ray Stress echocardiogram Pending Studies Studies pending at discharge: no Laboratory Results Lipid Panel Test 02/04/18 05:40 Range/Units Triglycerides Level 75 0-150 mg/dl Cholesterol Level 190 0-200 mg/dl HDL Cholesterol 79 mg/dl Cholesterol/HDL Ratio 2.4 LDL Cholesterol, Calculated 96 mg/dl Medical Emergencies . Who to Call and When: Medical Emergencies: If at any time you feel your situation is an emergency, please call 911 immediately. . Non-Emergent Contact Non-Emergency issues call your: Primary Care Provider Call Non-Emergent contact if: your pain is not controlled, your pain is worsening, your pain is unusual for you, your pain is concerning you, you have any medication questions . . "Provider Documentation" section prepared by Donna Duong. .
--- NOTE | 2018-02-04 11:31 | Discharge Summary ---
Discharge Summary Date of Service Feb 04, 2018. Discharge Summary Admission Date: Feb 03, 2018 at 12:51 Discharge Date: Feb 04, 2018 Discharge Disposition: Home Principal Diagnosis: Chest pain-noncardiac Problems/Secondary Diagnoses: GERD HTN Underweight, BMI 19.0 CAD S/P LAD PCI Hypothyroidism S/P Partial Thyroidectomy HLD Beta frances intolerance Procedures: Stress echocardiogram Chest x-ray Consultations: Cardiology Medication Reconciliation New Medications: Hydrochlorothiazide (Hctz) 25 Mg Tab 0.5 TAB PO QAM for 30 Days, #15 TAB 0 Refills Pantoprazole Sodium (Protonix) 40 Mg Tab 40 MG PO QAM for 14 Days, #14 TAB Continued Medications: Aspirin (Aspirin Ec) 81 Mg Tab 81 MG PO DAILY Calcium Carbonate-Vitamin D (Calcium) 1 Tab Tab 1 TAB PO TW Levothyroxine Sodium (Synthroid) 88 Mcg Tab 88 MCG PO DAILY, TAB Multiple Vitamins W/ Minerals (Centrum Silver) 1 Chw Chw 1 TAB PO DAILY Pravastatin Sod (Pravastatin Sodium) 10 Mg Tab 10 MG PO HS Valsartan (Diovan) 80 Mg Tab 80 MG PO BID, TAB Discharge Exam Patient feeling well. No further chest tightness except for some last night which is now resolved. The Tums did help slightly. Blood pressures were elevated during stress testing today and she is agreeable to starting on a diuretic. No further shoulder pain. No abdominal pain. No lightheadedness. Telemetry with normal sinus rhythm with PACs. I discussed the case with home energy inspector. Review of Systems: Constitutional: + fatigue (For the last month) Eyes: No problem reported ENT: No problem reported Respiratory: No problem reported Cardiovascular: No problem reported Abdomen: + problem reported (Acid reflux symptoms) Musculoskeletal: No problem reported Genitourinary - Female: No problem reported Neurologic: No problem reported Psychiatric: No problem reported Endocrine: No problem reported Hematologic / Lymphatic: No problem reported Integumentary: No problem reported Physical Exam: General Appearance: no apparent distress, + thin Eyes: normal inspection, EOMI, sclerae normal ENT: hearing grossly normal Neck: trachea midline Respiratory/Chest: lungs clear, normal breath sounds, no respiratory distress, no accessory muscle use Cardiovascular: regular rate, rhythm, no edema, no gallop, no JVD, no murmur , normal peripheral pulses Abdomen / GI: normal bowel sounds, non tender, soft, no organomegaly, no pulsatile mass Extremities: normal inspection, no calf tenderness, normal capillary refill , no pedal edema, normal range of motion Neurologic/Psychiatric: no motor/sensory deficits, alert, normal mood/affect , oriented x 3 Skin: normal color, warm/dry, no rash Hospital Course Ms. Sandoval is a 77 y/o female with PMHx of CAD S/P LAD PCI, Hypothyroidism S/P Partial Thyroidectomy, HTN, HLD, and GERD who presents to the ED c/o 3-5 days of intermittent CP. Her chest tightness was coming and going even when just sitting in the bed or chair. It was going away on its own. Serial troponins negative x 3. Stress Echocardiogram was normal but hypertensive during exercise. D-dimer was negative and no evidence of lower extremity edema or signs of DVT. TUMS did help the pain somewhat. HCTZ was added to her regimen for improved BP control. No significant events on telemetry. Chest pain likely GI related. Advised to start on Protonix daily x 2 weeks, but if pain persists or returns after stopping PPI, should see GI for possible EGD given long standing GERD and risk for esophageal dysplasia/cancer. She will be continued on her usual meds of ASA 81 mg daily, Valsartan 80 mg BID and Pravastatin 10 mg HS. She is intolerant to beta blockers. Lipid profile acceptable. Hypertension -not well controlled here or lately at home -added HCTZ 12.5mg daily -check daily BPs at home and keep log for PCP Hypothyroidism: TSH here normal, sees Endocrine at [facility] - Continue Synthroid 88 mcg daily at this time Stable for dc to home Total Time Spent: Greater than 30 minutes This includes examination of the patient, discharge planning, medication reconciliation, and communication with other providers. Discharge Instructions Please refer to the electronic Patient Visit Report (Discharge Instructions) for additional information. Follow-Up With PCP within 1-2 weeks Additional Copies To Joyce Lester MD
[2018-02-04] MEDS ORDERED: HYDR25TA4 PO (11:32)
[2018-02-04] MEDS ORDERED: PANT40TA PO (11:32)
[2018-02-04 11:42] VITALS: BP 181/77; PULSE 71; TEMP 36.7; O2SAT 97
[2018-02-04 11:43] VITALS: BP 181/77; PULSE 71; TEMP 36.7; O2SAT 97
--- NOTE | 2018-02-04 12:01 | EXERCISE STRESS ECHO ---
*NOTICE TO RECEIVING DEMOCRAT AGENCY This information is strictly Confidential and protected under [place] law. [place] law prohibits you from making any further disclosure of this information unless further disclosure is expressly permitted by the written consent of the person to whom it pertains or is authorized by law. A general authorization for the release of medical or other information is not sufficient for this purpose. Hospital accepts no responsibility if the information is made available to any other person, INCLUDING THE PATIENT. Interpretation Summary * Name: KACI BURKS Study Date: 02/04/2018 08:17 AM BP: 155/82 mmHg * Patient Location: C.2T\S\S238\S\2 HR: 76 * : 1940 (M/d/yyy) Gender: Female Height: 63 in * Age: 77 yrs Ethnicity: [place] Weight: 105 lb * Ordering Physician: Donna Duong * Referring Physician: Self, Referred * Performed By: Judy Falcon RCS * * Reason For Study: CHEST PAIN * BSA: 1.5 m2 * -- Conclusions -- * Left ventricular systolic function is normal. * Grade I diastolic dysfunction, (abnormal relaxation pattern). * Right ventricular systolic pressure is normal. * Normal exercise echocardiogram without evidence of inducible ischemia * Hypertensive response to exercise Procedure Details * ECHOEX, CPT #[id number] * ECHO COLOR FLOW, CPT #[id number] * ECHO DOPPLER, CPT #[id number] Left Ventricular Findings with Stress * Normal exercise echocardiogram without evidence of inducible ischemia Hypertensive response to exercise Left Ventricle * The left ventricle is normal in size. * There is normal left ventricular wall thickness. * Left ventricular systolic function is normal. * Ejection Fraction = 55-60%. * Grade I diastolic dysfunction, (abnormal relaxation pattern). * The left ventricular wall motion is normal at rest. Right Ventricle * The right ventricle is normal in size and function. Atria * The left atrial size is normal. * Right atrial size is normal. Mitral Valve * The mitral valve anatomy is normal. * There is trace mitral regurgitation. Tricuspid Valve * The tricuspid valve is not well visualized, but is grossly normal. * There is trace tricuspid regurgitation. * Right ventricular systolic pressure is normal. Aortic Valve * The aortic valve is normal in structure and function. * The aortic valve is trileaflet. * No hemodynamically significant valvular aortic stenosis. * There is no significant aortic regurgitation. Pulmonic Valve * The pulmonic valve is not well visualized. Great Vessels * The aortic root is normal size. Pericardium * There is no pericardial effusion. Stress Parameters * Normal baseline electrocardiogram. * Stress ECG: No ST changes. No arrhythmias. * The stress portion of this study was personally supervised by the undersigned interpreting physician. * Rest heart rate was '76' BPM. * Rest blood pressure was '155/82' * Maximum heart rate achieved was 141 bpm. * Maximum heart rate was 98 % of maximum age-predicted heart rate. * Maximum blood pressure was '207/89' * Total exercise time was '07:01' * Maximum exercise MET level achieved was '8.50' METS * Maximum treadmill speed was '3.40' miles per hour. * Maximum treadmill elevation was '14.00'% grade. Left Ventricular Findings with Stress * The baseline EKG was normal There are no significant ST or T-wave changes during exercise or recovery The baseline ejection fraction was normal with normal wall motion There was normal augmentation of all segments without development of regional wall motion abnormalities at peak exertion Pineda treadmill score: 3 (moderate risk) Hypertensive response to exercise MMode 2D Measurements and Calculations IVSd 0.93 cm IVSs 1.3 cm LVIDd 3.9 cm LVIDs 2.9 cm LVPWd 0.96 cm LVPWs 1.1 cm IVS/LVPW 0.97 FS 26.4 % EDV(Teich) 67.0 ml ESV(Teich) 32.0 ml EF(Teich) 52.3 % EDV(cubed) 60.6 ml ESV(cubed) 24.2 ml EF(cubed) 60.1 % % IVS thick 42.7 % % LVPW thick 17.6 % LV mass(C)d 114.3 grams LV mass(C)dI 77.8 grams/m\S\2 LV mass(C)s 108.1 grams LV mass(C)sI 73.5 grams/m\S\2 SV(Teich) 35.0 ml SI(Teich) 23.8 ml/m\S\2 SV(cubed) 36.4 ml SI(cubed) 24.7 ml/m\S\2 Ao root diam 2.8 cm Ao root area 6.3 cm\S\2 LA dimension 2.6 cm LA/Ao 0.91 LVOT diam 2.0 cm LVOT area 3.1 cm\S\2 LVAd ap4 24.8 cm\S\2 LVLd ap4 6.9 cm EDV(MOD-sp4) 72.2 ml EDV(sp4-el) 75.0 ml LVAs ap4 14.1 cm\S\2 LVLs ap4 5.4 cm ESV(MOD-sp4) 30.0 ml ESV(sp4-el) 31.0 ml EF(MOD-sp4) 58.4 % EF(sp4-el) 58.7 % LVAd ap2 23.6 cm\S\2 LVLd ap2 6.7 cm EDV(MOD-sp2) 67.9 ml EDV(sp2-el) 70.8 ml LVAs ap2 15.3 cm\S\2 LVLs ap2 5.9 cm ESV(MOD-sp2) 32.3 ml ESV(sp2-el) 33.6 ml EF(MOD-sp2) 52.4 % EF(sp2-el) 52.5 % LVLd %diff -4.39 % EDV(MOD-bp) 69.7 ml LVLs %diff 8.5 % ESV(MOD-bp) 32.4 ml EF(MOD-bp) 53.5 % SV(MOD-sp4) 42.1 ml SI(MOD-sp4) 28.7 ml/m\S\2 SV(MOD-sp2) 35.6 ml SI(MOD-sp2) 24.2 ml/m\S\2 SV(MOD-bp) 37.3 ml SI(MOD-bp) 25.4 ml/m\S\2 SV(sp4-el) 44.0 ml SI(sp4-el) 29.9 ml/m\S\2 SV(sp2-el) 37.2 ml SI(sp2-el) 25.3 ml/m\S\2 Doppler Measurements and Calculations MV E max semaj 78.7 cm/sec MV A max semaj 76.6 cm/sec MV E/A 1.0 MV P1/2t max semaj 73.3 cm/sec MV P1/2t 76.8 msec MVA(P1/2t) 2.9 cm\S\2 MV dec slope 279.5 cm/sec\S\2 MV dec time 0.21 sec Ao V2 max 104.6 cm/sec Ao max PG 4.4 mmHg Ao max PG (full) 0.31 mmHg KELSEY(V,A) 3.0 cm\S\2 KELSEY(V,D) 3.0 cm\S\2 LV V1 max PG 4.1 mmHg LV V1 max 100.8 cm/sec PA V2 max 82.0 cm/sec PA max PG 2.7 mmHg TR max semaj 233.3 cm/sec
== END 2018-02-04 12:30 | disposition home or self-care (01) ==
LOC: C.EDB 10:03 → C.2T 12:51 → ENRESERV 13:04
PROVIDERS: ADMIT Family Medicine; ATTEND Family Medicine
DX: R07.89 Other chest pain (principal); K21.9 Gastro-esophageal reflux disease without esophagitis; I10 Essential (primary) hypertension; R63.6 Underweight; Z68.1 Body mass index [BMI] 19.9 or less, adult; I25.10 Atherosclerotic heart disease of native coronary artery without angina pectoris; E03.9 Hypothyroidism, unspecified; E78.5 Hyperlipidemia, unspecified; Z79.82 Long term (current) use of aspirin; Z79.899 Other long term (current) drug therapy; Z88.0 Allergy status to penicillin; Z88.1 Allergy status to other antibiotic agents

== ENCOUNTER → 2018-02-17 | Outpatient (CLI) | payer BC ==
[~2018-02-17] MED LIST changes: -BIOT10TA2 PO; +CALC-51 PO; -CALCTAB5 PO; +HYDR25TA4 PO; +PANT40TA PO; +PRVC10 PO
[2018-02-17 10:18] LABS: BLOOD UREA NITROGEN 13 mg/dl (7-18); CALCIUM 9.4 mg/dl (8.5-10.1); CARBON DIOXIDE 30 mmol/L (21-32); CREATININE 0.81 mg/dl (0.60-1.20); GLUCOSE 84 mg/dl (70-99); POTASSIUM 4.6 mmol/L (3.5-5.1); SODIUM 135 mmol/L (136-145)
== END | disposition home or self-care (01) ==
LOC: C.LAB 07:19
PROVIDERS: ATTEND Internal Medicine Cardiovascular Disease
DX: I10 Essential (primary) hypertension (principal); E78.5 Hyperlipidemia, unspecified; I25.10 Atherosclerotic heart disease of native coronary artery without angina pectoris

== ENCOUNTER 2021-05-31 11:27 | Observation (INO) ==
[2021-05-31] MEDS ORDERED: SODIUM CHLORIDE 0.9% 250 ML IV ONE (11:52)
--- NOTE | 2021-05-31 11:59 | Emergency Department Note ---
History of Present Illness General Chief complaint: Chest Pain Stated complaint: CHEST PAIN Time Seen by Provider: 05/31/21 11:40 Source: patient and family ( Daughter who is at the bedside) Mode of arrival: ambulatory Limitations: no limitations History of Present Illness This patient is a 81-year-old female has history of cardiac disease, comes in after an chest and back pain. She says she has had this intermittently for the last week and a half she was seen recently for palpitations she said she continues to have those and she follow-up with Dr. Bishop and currently is a heart monitor since yesterday she is had more pain it does come and go but feels like pressure. She had a lot yesterday around 630 today started back. She took extra baby aspirin today. She felt lightheaded at one point she felt short of breath all week no vomiting no emesis no diaphoresis she has chronic left lower extremity swelling but nothing new or different. She has had the Covid vaccine and the booster. The pain is in cross her chest does radiate up into her neck into her back as well peer Home Medications Medication Instructions Recorded Confirmed Type ascorbic acid (vitamin C) 500 mg 500 mg PO DAILY cap 02/27/19 05/31/21 History capsule aspirin 81 mg tablet 81 mg PO DAILY tab 02/27/19 05/31/21 History calcium 650 mg-vitamin D3 12.5 1 tab PO DAILY tab 02/27/19 05/31/21 History mcg-vitamin K 40 mcg chewable tablet (Viactiv) ezetimibe 10 mg tablet (Zetia) 10 mg PO DAILY #90 tab 11/13/20 05/31/21 Rx levothyroxine 75 mcg tablet 75 mcg PO QAM #90 tab 12/02/20 05/31/21 Rx hydrochlorothiazide 25 mg tablet 12.5 mg PO DAILY #90 tab 01/14/21 05/31/21 Rx losartan 50 mg tablet 50 mg PO DAILY #90 tab 01/14/21 05/31/21 Rx pravastatin 10 mg tablet 10 mg PO DAILY #90 tab 01/14/21 05/31/21 Rx Allergies Allergy/AdvReac Type Severity Reaction Status Date / Time doxycycline Allergy Unknown rash Verified 05/31/21 13:23 metoprolol Allergy Unknown severe Verified 05/31/21 13:23 rash over entire body atorvastatin AdvReac Unknown causes Verified 05/31/21 13:23 sereve weakness and chest pain, do not give nitroglycerin AdvReac Unknown severe Verified 05/31/21 13:23 drop in blood pressure rosuvastatin AdvReac Unknown causes Verified 05/31/21 13:23 sereve weakness and chest pain, do not give Past Med/Surg History Medical History (Updated 05/31/21 @ 18:48 by Conor Plata MD) Arthritis CAD in [place] artery Essential (primary) hypertension GERD without esophagitis Gout Hyperlipidemia Hypothyroidism Varicose vein of leg Surgical History H/O colonoscopy H/O endoscopy H/O partial thyroidectomy H/O tubal ligation Hx of cholecystectomy Hx of heart artery stent Hx of tonsillectomy Family History Brother Pancreatic cancer Myocardial infarction FHx: allergies Prostate cancer Diabetes Gallbladder disease Cardiac disorder Hypertension Lymphedema Colon cancer FHx: kidney cancer Mother Pancreatic cancer Aunt Colon cancer Deafness Son FHx: kidney cancer Father Myocardial infarction Grandmother Myocardial infarction Grandfather Stroke Other No family history of bleeding disorder Denies family history of Ovarian cancer Adverse anesthesia outcome Breast cancer Social History Smoking Status: Unknown if ever smoked Hx Alcohol Use: No Hx Substance Use: No Preferred Language: Telugu Communication Ability: Effective Visual Impairment: No Limitations Hearing Ability: Use of 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 Aid 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 Emergency Required: No Beliefs That Will Affect Care: None marital status: Current Living Situation: Alone current occupational status: retired Other Information That Helps Us Care for You: No Feels Safe at Home: Yes Safety Concerns: Feels Safe At This Time Childhood Exposure to Second-Hand Smoke: No Dental Care, Regularly: Yes Physical Activity Frequency: Daily Seatbelt Use: always Sunscreen Use: Yes Assistive Devices: Glasses and Hearing Aid - Bilateral Review of Systems A total of 10 systems reviewed and were otherwise negative Physical Exam Vital Signs Vital Signs - 24 hr 05/31/21 11:28 05/31/21 12:33 05/31/21 12:49 Temperature 36.6 C Temperature Source Temporal Artery Scan Pulse Rate 90 76 Pulse Rate from SpO2 Sensor 68 Respiratory Rate 18 20 Respiratory Effort / Characteristics Non-Labored Respiratory Depth Normal Blood Pressure 216/80 H 173/77 H Blood Pressure Mean 125 109 Pulse Oximetry 98 99 Oxygen Delivery Method Room Air Room Air Sepsis Recent Fever Within 48 Hours No Sepsis New/Unexplained Change in Mental Status N/A Sepsis Action Taken by Nursing No Action Required General: Well developed well nourished slender older female who appears in no acute distress, breathing comfortably on room air. Normal speech HEENT: Normal cephalic atraumatic. Pupils are equal round and reactive to light. Extraocular movements are intact. Oropharynx is pink with moist mucous membranes. No swelling of the mouth lips or tongue. Neck: Supple with a midline trachea. No meningeal signs or stiffness, no JVD or bruits. No Stridor. Chest: Clear to auscultation bilaterally. No wheezes or rhonchi. No increased work of breathing. Not reproducibly tender Heart: Regular rate and rhythm without murmurs or gallops. Abdomen: Soft nontender, nondistended without rebound guarding or rigidity. Extremities: No cyanosis clubbing or edema. No calf tenderness or assymetry Spine/Back. Non tender to palpation. No CVA tenderness Skin: Good turgor without rashes. Neurologic exam: Cranial nerves two through 12 are intact. Motor and sensation are intact and symmetrical throughout. Course Administered Medications Ezetimibe (Ezetimibe 10 Mg Tablet) 10 mg PO DAILY@1730 [facility] Stop: 06/30/21 17:29 Last Admin: 05/31/21 17:53 Dose: 10 mg Documented by: [id number] Hydrochlorothiazide (Hydrochlorothiazide 25 Mg Tab) 12.5 mg PO DAILY [facility] Stop: 06/30/21 17:04 Last Admin: 05/31/21 17:53 Dose: 12.5 mg Documented by: [id number] Losartan Potassium (Losartan Potassium 50 Mg Tab) 50 mg PO DAILY [facility] Stop: 06/30/21 17:04 Last Admin: 05/31/21 17:54 Dose: 50 mg Documented by: [id number] Discontinued Medications Sodium Chloride (Nss) 250 mls @ 999 mls/hr IV .Q16M ONE Stop: 05/31/21 12:07 Last Infusion: 05/31/21 12:38 Dose: 0 mls/hr Documented by: [id number] Admin: 05/31/21 12:13 Dose: 999 mls/hr Documented by: [id number] Medical Decision Making Differential Diagnosis Acute coronary syndrome, arrhythmia, electrolyte or metabolic abnormality, infection, PE, aortic pathology, Covid Medical Records Attestation: I reviewed the patient's medical records. Home Medications Current Medication List: was personally reviewed by me Laboratory Data Attestation: I reviewed the patient's lab results. Result diagrams: 05/31/21 12:10 05/31/21 12:10 Lab Results 05/31/21 05/31/21 05/31/21 Range/Units 12:05 12:05 12:10 WBC 5.78 (4.8-10.8) K/uL RBC 4.47 (4.2-5.4) M/uL Hgb 14.0 (12.0-16.0) g/dL Hct 40.3 (37-47) % MCV 90.2 (80-100) fL MCH 31.3 (25-34) pg MCHC 34.7 (32-36) g/dL RDW Std Deviation 41.3 (36.4-46.3) fL RDW Coeff of Mary 12.6 (11.5-14.5) % Plt Count 256 (130-400) K/uL MPV 9.9 (7.4-10.4) fL Immature Gran % (Auto) 0.2 % Neut % (Auto) 61.2 % Lymph % (Auto) 28.4 % [place] % (Auto) 8.1 % Eos % (Auto) 2.1 % Baso % (Auto) 0.0 % Neut # (Auto) 3.54 (1.4-6.5) K/uL Lymph # (Auto) 1.64 (1.2-3.4) K/uL [place] # (Auto) 0.47 (0.11-0.59) K/uL Eos # (Auto) 0.12 (0-0.5) K/uL Baso # (Auto) 0.00 (0-0.2) K/uL Immature Gran # (Auto) 0.01 (0.00-0.02) K/uL PT (9.0-12.0) Seconds INR (0.9-1.1) APTT (21.0-31.0) Seconds PTT Ratio Sodium (136-145) mmol/L Potassium (3.5-5.1) mmol/L Chloride (98-107) mmol/L Carbon Dioxide (21-32) mmol/L Anion Gap (3-11) BUN (7-18) mg/dl Creatinine (0.6-1.2) mg/dl Est Cr Clr Drug Dosing ml/min Est GFR ( Amer) ml/min Est GFR (Non-Af Amer) ml/min BUN/Creatinine Ratio (10-20) Glucose (70-99) mg/dl Calcium (8.5-10.1) mg/dl Total Bilirubin (0.2-1) mg/dl AST (15-37) U/L ALT (12-78) U/L Alkaline Phosphatase (45-117) U/L Total Creatine Kinase (26-192) U/L Troponin I (0-0.045) ng/ml Total Protein (6.4-8.2) gm/dl Albumin (3.4-5.0) gm/dl Globulin (2.5-4.0) gm/dl Albumin/Globulin Ratio (0.9-2) Lipase (73-393) U/L COVID-19 Eval Order Covid19 at [facility] SARS-CoV-2 (PCR) NEGATIVE (Negative) 05/31/21 05/31/21 05/31/21 Range/Units 12:10 12:10 12:10 WBC (4.8-10.8) K/uL RBC (4.2-5.4) M/uL Hgb (12.0-16.0) g/dL Hct (37-47) % MCV (80-100) fL MCH (25-34) pg MCHC (32-36) g/dL RDW Std Deviation (36.4-46.3) fL RDW Coeff of Mary (11.5-14.5) % Plt Count (130-400) K/uL MPV (7.4-10.4) fL Immature Gran % (Auto) % Neut % (Auto) % Lymph % (Auto) % [place] % (Auto) % Eos % (Auto) % Baso % (Auto) % Neut # (Auto) (1.4-6.5) K/uL Lymph # (Auto) (1.2-3.4) K/uL [place] # (Auto) (0.11-0.59) K/uL Eos # (Auto) (0-0.5) K/uL Baso # (Auto) (0-0.2) K/uL Immature Gran # (Auto) (0.00-0.02) K/uL PT 9.8 (9.0-12.0) Seconds INR 1.0 (0.9-1.1) APTT 25.9 (21.0-31.0) Seconds PTT Ratio 1.0 Sodium 137 (136-145) mmol/L Potassium 4.1 (3.5-5.1) mmol/L Chloride 102 (98-107) mmol/L Carbon Dioxide 29 (21-32) mmol/L Anion Gap 6.0 (3-11) BUN 14 (7-18) mg/dl Creatinine 0.92 (0.6-1.2) mg/dl Est Cr Clr Drug Dosing 37.9 ml/min Est GFR ( Amer) 67.7 ml/min Est GFR (Non-Af Amer) 58.4 ml/min BUN/Creatinine Ratio 15.1 (10-20) Glucose 91 (70-99) mg/dl Calcium 9.0 (8.5-10.1) mg/dl Total Bilirubin 0.5 (0.2-1) mg/dl AST 24 (15-37) U/L ALT 30 (12-78) U/L Alkaline Phosphatase 72 (45-117) U/L Total Creatine Kinase 77 Cancelled (26-192) U/L Troponin I < 0.015 (0-0.045) ng/ml Total Protein 7.6 (6.4-8.2) gm/dl Albumin 3.8 (3.4-5.0) gm/dl Globulin 3.8 (2.5-4.0) gm/dl Albumin/Globulin Ratio 1.0 (0.9-2) Lipase 198 (73-393) U/L COVID-19 Eval Order SARS-CoV-2 (PCR) (Negative) Imaging Data Attestation: I personally reviewed and interpreted this imaging study as follows: My Impression: Chest x-rayno acute infiltrate, failure, pneumothorax Radiologist's Impression: Chest X-Ray 05/31/21 11:52 XR chest 1V portable CLINICAL HISTORY: Chest Pain. COMPARISON STUDY: 05/19/2021 TECHNIQUE: 1 view of the chest FINDINGS: Single frontal view of the chest demonstrates the heart size to be mildly enlarged. There is a battery pack device superimposed over the aortic arch. The lungs are clear of alveolar opacities. There is no evidence for pleural effusion. There is no evidence for vascular congestion. There is no acute osseous pathology. IMPRESSION: No acute cardiopulmonary disease. ACT 112: Negative or not required by law. Electronically signed by: Benji Morris M.D. 05/31/2021 12:03 PM ECG Data Attestation: I personally reviewed and interpreted this ECG as follows: Indication: + chest pain Rate (beats per minute): 89 Rhythm: + normal sinus ECG Intervals/blocks: + Incomplete right bundle branch block, + Normal QT and + Normal NE ECG [place]: + Normal ECG ST segments: + Normal ST segments ECG Findings: + PACs (Frequent PACs/supraventricular complexes); no PVCs MDM Narrative This patient comes in as scribed above she has been having palpitations and chest pain. It got worse today. She was placed on a director of cardiac rehabilitation her blood pressure was elevated although it is coming down when I saw her is down to a diastolic of 180. She appears in no distress she is nontachypneic. On the monitor she does have pretty frequent PACs. IV access was established she was hydrated with an IV normal saline bolus. EKG, chest x-ray, multiple blood testing was obtained. She tells me she cannot take nitroglycerin as her pressure bottoms out. Her pain has been intermittent. Her troponin is negative. EKG does not show any ischemic changes but she does have ectopy she is no acute electrolyte or metabolic abnormalities chest x-ray is unremarkable does not suggest congestive heart failure pneumonia or pneumothorax. With the patient's cardiac risk factors and her ongoing symptoms I do think she needs to be admitted/observe for further cardiac work-up. I have consulted Dr. Gallego to see the patient in ER for these measures Continuous cardiac monitoring: Orders placed in EMR for continuous cardiac monitoring on home interpretation patient was noted to be in normal sinus rhythm with a rate of 85 with frequent PACs Impression & Plan Chest pain, Acute coronary syndrome, Heart palpitations, PAC (premature atrial contraction) Discharge Plan Visit Data Chief Complaint: Chest Pain Stated Complaint: CHEST PAIN ED Provider: Conor Plata Discharge Problem: Chest pain, Acute coronary syndrome, Heart palpitations, PAC (premature atrial contraction) Patient Disposition: Admitted As Inpatient Discharge Instructions Interventions: ED Discharge Assessment Last Done: 05/31/21 15:45
--- NOTE | 2021-05-31 12:04 | XRay Report ---
XR chest 1V portable CLINICAL HISTORY: Chest Pain. COMPARISON STUDY: 05/19/2021 TECHNIQUE: 1 view of the chest FINDINGS: Single frontal view of the chest demonstrates the heart size to be mildly enlarged. There is a batter y pack device superimposed over the aortic arch. The lungs are clear of alveolar opacities. There is no evidence for pleural effusion. There is no evidence for vascular congestion. There is no acute oss eous pathology. IMPRESSION: No acute cardiopulmonary disease. ACT 112: Negative or not required by law. Electronically signed by: Benji Morris M.D. 05/31/2021 12:03 PM
[2021-05-31 12:21] LABS: Eosinophils # (auto) 0.12 K/uL (0-0.5); Eosinophils % (auto) 2.1 %; Hematocrit (blood only) 40.3 % (37-47); Immature Granulocytes # (auto) 0.01 K/uL (0.00-0.02); Immature Granulocytes % (auto) 0.2 %; Lymphocytes # (auto) 1.64 K/uL (1.2-3.4); Lymphocytes % (auto) 28.4 %; Mean Corpuscular Hemoglobin 31.3 pg (25-34); Mean Corpuscular Hgb Conc 34.7 g/dL (32-36); Mean Corpuscular Volume 90.2 fL (80-100); Mean Platelet Volume 9.9 fL (7.4-10.4); Monocytes # (auto) 0.47 K/uL (0.11-0.59); Monocytes % (auto) 8.1 %; Neutrophils # (auto) 3.54 K/uL (1.4-6.5); Neutrophils % (auto) 61.2 %; Platelet Count 256 K/uL (130-400); RDW Coefficient of Variation 12.6 % (11.5-14.5); RDW Standard Deviation 41.3 fL (36.4-46.3); Red Blood Count 4.47 M/uL (4.2-5.4); White Blood Count 5.78 K/uL (4.8-10.8)
[2021-05-31 12:32] LABS: Partial Thromboplastin Time 25.9 Seconds (21.0-31.0); Prothrombin Time 9.8 Seconds (9.0-12.0)
[2021-05-31 12:38] LABS: Alanine Aminotransferase 30 U/L (12-78); Albumin Level 3.8 gm/dl (3.4-5.0); Aspartate Aminotransferase 24 U/L (15-37); BUN Creatinine Ratio 15.1 (10-20); Blood Urea Nitrogen 14 mg/dl (7-18); Carbon Dioxide 29 mmol/L (21-32); Chloride 102 mmol/L (98-107); Creatinine Clr Calc Pharmacy 37.9 ml/min; Est GFR (African American) 67.7 ml/min; Est GFR (Non-African American) 58.4 ml/min; Glucose 91 mg/dl (70-99); Lipase 198 U/L (73-393); Potassium 4.1 mmol/L (3.5-5.1); Sodium 137 mmol/L (136-145)
[2021-05-31 12:42] LABS: Alkaline Phosphatase 72 U/L (45-117); Bilirubin,Total 0.5 mg/dl (0.2-1); Globulin 3.8 gm/dl (2.5-4.0); Total Protein 7.6 gm/dl (6.4-8.2); Troponin I < 0.015 ng/ml (0-0.045)
--- NOTE | 2021-05-31 13:10 | History & Physical Report ---
Date of Service May 31, 2021 Assessment & Plan (1) Chest pain, rule out acute myocardial infarction: Plan: Previous pain below breast, this pain Serial troponins Unlikely cardiac as non exertional and intermittent chest pain since yesterday with negative troponin However escalating symptoms, high risk factors and outpatient family support coordinator reportedly planning on stress echo anyway therefore will observe in med/tele and consult her family support coordinator for further recommendations Avoiding nitro given prior hypotension related to this Most likely anxiety related, her is currently sick. Currently refusing anti-anxiety medications. (2) PAC (premature atrial contraction): Plan: Monitor on telemetry (3) Essential (primary) hypertension: Plan: Continue losartan and hydrochlorothiazide (4) GERD without esophagitis: Plan: Current pain does not appear to be associated with eating or positional therefore making this less likely (5) Hyperlipidemia: Plan: Continue pravastatin (6) Hypothyroidism: Plan: TSH WNL 05/19 Continue levothyroxine 75 mcg PO daily Plan: VTE Prophylaxis - low risk Diet - heart healthy Disposition - observation status to med/tele Admission and Anticipated Discharge Date Admission Date: May 31, 2021 History of Present Illness Chief Complaint: Chest pain Primary Care Provider: Joyce Lester MD Evangelina Sandoval is an 81 year old female who presents to the ER with chest pain. She reports this has been going on for the last week with increasing severity and frequency. She is currently having chest pain radiating to her back and neck, lasting for 2 minutes at a time with complete pain free times of around 5- 30 minutes apart. Severity 4/10, no worse on exertion, palpation of position. Initially epigastric pain then moved up, now mainly in back and shoulders. Associated lightheadedness. So severe today she felt liek she was going to faint. No associated diaphoresis or shortness of breath. She reports other chest pains usually under left breast radiating down left arm, numbing ache, off and on for years. Current pain has only been present for the last week. She doesn't feel anxious but has increased stress recently with her health. In the ER initial troponin negative. Non-ischemic EKG. She was referred to medicine for chest pain rule out ACS. Allergies Allergy/AdvReac Type Severity Reaction Status Date / Time doxycycline Allergy Unknown rash Verified 05/31/21 13:23 metoprolol Allergy Unknown severe Verified 05/31/21 13:23 rash over entire body atorvastatin AdvReac Unknown causes Verified 05/31/21 13:23 sereve weakness and chest pain, do not give nitroglycerin AdvReac Unknown severe Verified 05/31/21 13:23 drop in blood pressure rosuvastatin AdvReac Unknown causes Verified 05/31/21 13:23 sereve weakness and chest pain, do not give Home Medications Medication Instructions Recorded Confirmed Type ascorbic acid (vitamin C) 500 mg 500 mg PO DAILY cap 02/27/19 05/31/21 History capsule aspirin 81 mg tablet 81 mg PO DAILY tab 02/27/19 05/31/21 History calcium 650 mg-vitamin D3 12.5 1 tab PO DAILY tab 02/27/19 05/31/21 History mcg-vitamin K 40 mcg chewable tablet (Viactiv) ezetimibe 10 mg tablet (Zetia) 10 mg PO DAILY #90 tab 11/13/20 05/31/21 Rx levothyroxine 75 mcg tablet 75 mcg PO QAM #90 tab 12/02/20 05/31/21 Rx hydrochlorothiazide 25 mg tablet 12.5 mg PO DAILY #90 tab 01/14/21 05/31/21 Rx losartan 50 mg tablet 50 mg PO DAILY #90 tab 01/14/21 05/31/21 Rx pravastatin 10 mg tablet 10 mg PO DAILY #90 tab 01/14/21 05/31/21 Rx Past Med/Surg History Medical History (Updated 05/31/21 @ 18:48 by Conor Plata MD) Arthritis CAD in [place] artery Essential (primary) hypertension GERD without esophagitis Gout Hyperlipidemia Hypothyroidism Varicose vein of leg Surgical History H/O colonoscopy H/O endoscopy H/O partial thyroidectomy H/O tubal ligation Hx of cholecystectomy Hx of heart artery stent Hx of tonsillectomy Family History Brother Pancreatic cancer Myocardial infarction FHx: allergies Prostate cancer Diabetes Gallbladder disease Cardiac disorder Hypertension Lymphedema Colon cancer FHx: kidney cancer Mother Pancreatic cancer Aunt Colon cancer Deafness Son FHx: kidney cancer Father Myocardial infarction Grandmother Myocardial infarction Grandfather Stroke Other No family history of bleeding disorder Denies family history of Ovarian cancer Adverse anesthesia outcome Breast cancer Social History Smoking Status: Unknown if ever smoked Hx Alcohol Use: No Hx Substance Use: No Preferred Language: Nicaraguan Communication Ability: Effective Visual Impairment: No Limitations Hearing Ability: Use of Hearing Aid [employer] Inspector Required: No Beliefs That Will Affect Care: None marital status: Current Living Situation: Alone current occupational status: retired Other Information That Helps Us Care for You: No Feels Safe at Home: Yes Safety Concerns: Feels Safe At This Time Childhood Exposure to Second-Hand Smoke: No Dental Care, Regularly: Yes Physical Activity Frequency: Daily Seatbelt Use: always Sunscreen Use: Yes Assistive Devices: Glasses and Hearing Aid - Bilateral Review of Systems Review of Systems: All systems reviewed & are unremarkable except as noted in HPI & below Physical Exam Constitutional: WD/WN, vitals as above Eyes: PERRL, conjunctivae normal, anicteric sclerae ENMT: external ear and nose normal, oropharynx normal Neck: trachea midline, no thyromegaly Respiratory: normal respiratory effort, lungs clear to auscultation Cardiovascular: RRR, no murmur, no edema Chest (Breasts): Additional Comments: Non-reproducible chest or back pain Gastrointestinal (Abdomen): normal bowel sounds, soft, nontender, no hepa tosplenomegaly Musculoskeletal: no cyanosis or clubbing, extremities motor strength 5/5 Skin: no rashes, warm and dry Neurologic: moves all extremities and awake; not confused Psychiatric: A+Ox3, euthymic affect Genitourinary: no CVA tenderness Results & Data Results & Data ([facility]) Vital Signs (Past 12 Hours) Vital Signs Temp Pulse Resp BP Pulse Ox 05/31/21 12:33 76 20 173/77 H 99 05/31/21 11:28 36.6 C 90 18 216/80 H 98 Diagnostic Findings XR chest 1V portable CLINICAL HISTORY: Chest Pain. COMPARISON STUDY: 05/19/2021 TECHNIQUE: 1 view of the chest FINDINGS: Single frontal view of the chest demonstrates the heart size to be mildly enlarged. There is a battery pack device superimposed over the aortic arch. The lungs are clear of alveolar opacities. There is no evidence for pleural effusion. There is no evidence for vascular congestion. There is no acute osseous pathology. IMPRESSION: No acute cardiopulmonary disease. Medications Administered ER Medications Given: NSS 250ml bolus ECG Indication: chest pain Rate (beats per minute): 89 Rhythm: normal sinus Findings: + other (PSVCs) and + LAFB Comparison ECG Date: from (May 19, 2021) Code Status & VTE Plan Code Status Full VTE Prophylaxis Plan VTE Prophylaxis will be ordered: No PG Care Time/CCT Total # of Minutes Spent Total Time Spent with Patient: Total time spent is greater than 50% in coordination of care (as documented) at patient's floor/unit and/or counseling patient: Coding Level of Care Code INT OBSERVATION CARE 70M LVL 3 Diagnoses Chest pain, rule out acute myocardial infarction R07.9 PAC (premature atrial contraction) I49.1 Essential (primary) hypertension I10 GERD without esophagitis K21.9 Hyperlipidemia E78.5 Hypothyroidism E03.9
[2021-05-31 14:07] LABS: Creatine Kinase 77 U/L (26-192)
[2021-05-31] MEDS ORDERED: ACETAMINOPHEN 325 MG TAB PO PRN (16:57)
[2021-05-31] MEDS ORDERED: POLYETHYLENE (MIRALAX) 17 GM PACK PO PRN (16:57)
[2021-05-31] MEDS ORDERED: ONDANSETRON INJ 2 MG/ML 2 ML VIAL IV PRN (16:57)
[2021-05-31] MEDS ORDERED: EZETIMIBE 10 MG TABLET PO SCH ×2 (17:30→21:00)
[2021-05-31] MEDS: hydroCHLOROthiazide 25 MG TAB PO SCH (17:53)
[2021-05-31] MEDS: LOSARTAN POTASSIUM 50 MG TAB PO SCH (17:54)
[2021-05-31] MEDS ORDERED: PRAVASTATIN SOD 10 MG TAB PO SCH (21:00)
[2021-06-01 06:01] LABS: Eosinophils # (auto) 0.12 K/uL (0-0.5); Eosinophils % (auto) 2.2 %; Hematocrit (blood only) 39.3 % (37-47); Hemoglobin 13.8 g/dL (12.0-16.0); Immature Granulocytes # (auto) 0.01 K/uL (0.00-0.02); Immature Granulocytes % (auto) 0.2 %; Lymphocytes # (auto) 1.82 K/uL (1.2-3.4); Lymphocytes % (auto) 33.1 %; Mean Corpuscular Hemoglobin 31.5 pg (25-34); Mean Corpuscular Hgb Conc 35.1 g/dL (32-36); Mean Corpuscular Volume 89.7 fL (80-100); Mean Platelet Volume 9.6 fL (7.4-10.4); Monocytes # (auto) 0.59 K/uL (0.11-0.59); Monocytes % (auto) 10.7 %; Neutrophils # (auto) 2.96 K/uL (1.4-6.5); Neutrophils % (auto) 53.8 %; Platelet Count 241 K/uL (130-400); RDW Coefficient of Variation 12.6 % (11.5-14.5); RDW Standard Deviation 41.4 fL (36.4-46.3); Red Blood Count 4.38 M/uL (4.2-5.4)
[2021-06-01] MEDS ORDERED: LEVOTHYROXINE SODIUM 75 MCG TABLET PO SCH (06:30)
[2021-06-01 06:31] LABS: BUN Creatinine Ratio 17.8 (10-20); Blood Urea Nitrogen 16 mg/dl (7-18); Calcium 8.8 mg/dl (8.5-10.1); Carbon Dioxide 28 mmol/L (21-32); Chloride 102 mmol/L (98-107); Creatinine Clr Calc Pharmacy 38.6 ml/min; Est GFR (African American) 70.4 ml/min; Est GFR (Non-African American) 60.8 ml/min; Glucose 84 mg/dl (70-99); Potassium 3.9 mmol/L (3.5-5.1); Sodium 136 mmol/L (136-145)
[2021-06-01 06:36] LABS: Troponin I < 0.015 ng/ml (0-0.045)
[2021-06-01] MEDS ORDERED: PRAVASTATIN SOD 10 MG TAB PO SCH (09:00)
[2021-06-01] MEDS ORDERED: EZETIMIBE 10 MG TABLET PO SCH (09:00)
[2021-06-01] MEDS ORDERED: ASPIRIN 81 MG ECTAB PO SCH (09:00)
[2021-06-01] MEDS ORDERED: CALCIUM 600MG + VIT D 400 IU TAB PO SCH (09:00)
[2021-06-01] MEDS ORDERED: hydroCHLOROthiazide 25 MG TAB PO SCH (09:00)
[2021-06-01] MEDS ORDERED: LOSARTAN POTASSIUM 50 MG TAB PO SCH (09:00)
[2021-06-01] MEDS: hydroCHLOROthiazide 25 MG TAB PO SCH (09:10)
[2021-06-01] MEDS: LOSARTAN POTASSIUM 50 MG TAB PO SCH (09:10)
--- NOTE | 2021-06-01 10:15 | Hospitalist Progress Note ---
Date of Service June 01, 2021 Assessment & Plan (1) Chest pain: Plan: - 81 y/o WF with known h/o CAD s/p LAD stent in 2007 with ongoing/intermittent CP at rest - ACS has since ruled out. No EKG changes - Stress echo done November and no evidence of ischemia - patient does seem anxious and perhaps anxiety driving her symptoms - at any rate, just seen by established city supervisor last week and plan was for repeat stress echo. - cardiology consulted to help guide if this can be done as an OP or further cardiac eval needs done prior to D/C - serial troponins negative-- ACS has ruled out - a on ASA, statin therapy and ARB. Intolerant to BB (rash) - appreciate recommendations per cardiology Admission and Anticipated Discharge Date Admission Date: May 31, 2021 Results & Data Results & Data ([facility]) Vital Signs (Past 12 Hours) Vital Signs Temp Pulse Pulse Resp BP Pulse Ox 06/01/21 07:47 36.7 C 64 16 152/72 H 99 06/01/21 03:16 36.8 C 59 L 16 132/75 96 05/31/21 23:55 59 L 05/31/21 22:50 36.7 C 63 16 130/72 97 PG Care Time/CCT Total # of Minutes Spent Total Time Spent with Patient: Total time spent is greater than 50% in coordination of care (as documented) at patient's floor/unit and/or counseling patient: Coding Diagnoses Chest pain R07.2 Chest pain type: precordial pain (1) Chest pain Chest pain type: precordial pain Qualified Code(s): R07.2 - Precordial pain
--- NOTE | 2021-06-01 12:51 | XCELERA ---
[id number]
--- NOTE | 2021-06-01 13:00 | Cardiology Consultation ---
Date of Consultation June 01, 2021 Assessment & Plan (1) Chest pain: (2) Heart palpitations: (3) Decreased exercise tolerance: (4) CAD in [place] artery: (5) Hx of heart artery stent: (6) Hyperlipidemia: (7) Essential (primary) hypertension: ASSESSMENT/PLAN: 1.Chest pain: Chronic atypical chest pain. Troponin has been undetectable. ECG without dynamic changes. Stress echo had been ordered as an outpatient and arrange for to be done today. Stress echo performed and did not demonstrate ischemic changes. Chest pain appears to be noncardiac in nature. Defer to primary service or PCP. 2. CAD s/p LAD PCI: Atypical symptoms but no definite angina. Decreased exercise tolerance however since/stress test so stress echo ordered to better quantitate this, and stress echo was negative for ischemic changes with good exercise tolerance. Continue aspirin 81 mg daily indefinitely, given prior PCI. She had a rash on Lopressor. Continue statin therapy as tolerated. She did not tolerate nitroglycerin. Call 911 for angina that does not resolve within 5 minutes. 3. Hypertension: Blood pressure mildly elevated. Blood pressure had been well controlled at home however. No changes made at this time but if blood pressure continues to be elevated, could further titrate losartan. 4. Dyslipidemia: She is tolerating pravastatin 10 mg daily. She did not tolerate pravastatin 20 mg daily. LDL has increased and is not optimized. She is intolerant to Crestor, Lipitor, and higher doses of pravastatin (20 mg). Continue Zetia, which she is tolerating well. Labs have been arranged by her PCP. 5. Palpitations: She has event monitor as an outpatient and was encouraged to resume this when discharge. No arrhythmia on telemetry while here. 6. Decreased exercise tolerance: Stress echo as above. Exercise tolerance on stress test similar to November 2020 stress. 7. Disposition: Can be discharged home from a Cardiology perspective. Patient care communicated with Mignon Jaramillo of the primary hospitalist service. Thank you for allowing me to participate in the care of your patient. Please call for any other questions or concerns. Sincerely, Mauricio Bishop M.D. History of Present Illness Reason for Consultation: Chest pain Requesting Physician: Isaias Gallego Attending Physician: Aidan Najera DO History of Present Illness Mrs. Sandoval is a very pleasant 81-year-old female with a history significant for CAD status post LAD PCI, hypertension, and dyslipidemia. She states that in 2007 she had shortness of breath and exertional neck pain. She went to the hospital in [place], [place] and underwent cardiac catheterization. S he was told that she had a 95% stenosis within her LAD and received a stent. She did not notice any significant improvement in her symptoms however, following PCI. At that time she was started on Lipitor and for the next several months felt quite poorly with chest pain, weakness, and tachycardia. She eventually felt better off of statin therapy. She had similar symptoms with Crestor and Zetia. She reports having another cardiac catheterization only a few days after her PCI when she presented to another hospital with hypertension. Stent was reportedly patent. She has had the following studies/procedures: 1. Cardiac catheterization 02/17/2008 at [facility]: Reportedly 95% LAD lesion which underwent 3.5 x 28 mm Promus stent. 2. Cardiac catheterization February 2008 at other hospital: Stent patent per her report. 3. Nuclear stress 04/18/2015: Negative for ischemia or infarct. EF 67% Catalino protocol. Exercised 8 minutes 46 seconds. 100% MPHR. Negative exercise ECG. 4. Echo 01/04/2017: Normal LV size, systolic function, wall motion. EF 60- 65%. No significant diastolic dysfunction or LVH. No significant valvular abnormalities. RVSP 26. 5. Stress Echo 02/04/2018: Negative stress echo at 98% MPHR. 7 minutes 1 second Catalino protocol. Hypertensive response. Negative ECG. EF 55-60%. Normal wall motion. Type 1 diastolic dysfunction. Normal RVSP. No significant valvular abnormalities. 6. Stress echo 12/04/2020: Negative stress echo and ECG 104% MPHR. No chest pain. 7 minutes 7 seconds Catalino protocol. Resting EF 60-65%. Normal wall motion. No significant valvular abnormalities. Normal RVSP. She was admitted on 05/31/2021 with chest pain. She was last seen in the office on 05/28/2021. She has a history of chronic intermittent chest discomfort. Dur ing that visit, stress echo was ordered due to decreased exercise tolerance and dyspnea with exertion since her most recent stress in November of 2020. The stress echo has not yet been performed as an outpatient. She states that she was experiencing pain across her chest, radiating to the neck and ears bilaterally. She described the pain as a pressure and then an ache. There was a little shortness of breath that accompanied the pain. Pain continues to occur at any time, including rest. There is no specific trigger. Symptoms last anywhere from 15 seconds up to 1 or 2 minutes before spontaneously resolving. She felt as though the pain was more intense. She also had an episode of near-syncope while sitting. She had been wearing an event monitor that was ordered during last week's visit due to palpitations. She continues to have occasional palpitations. While here, she has recorded 12 separate episodes of chest discomfort that occurred at rest on a tablet. She denies shortness of breath otherwise. She denies syncope, edema, or bleeding. She was chest pain-free during our visit. Review of systems:As above. Review of systems otherwise negative/unrema rkable. Family history:Father at the age of 32 with myocardial infarction. Brother had 1st myocardial infarction at 51. Social history: Denies tobacco, alcohol, or drug abuse. She had 3 children, but her son from cancer in summer 2018. One daughter lives in [place], and another daughter, Nayla Mckeon, in [place]. She has grandchildren. Her is ill and she cares for him. She is unaccompanied today. Allergies Allergy/AdvReac Type Severity Reaction Status Date / Time doxycycline Allergy Unknown rash Verified 05/31/21 13:23 metoprolol Allergy Unknown severe Verified 05/31/21 13:23 rash over entire body atorvastatin AdvReac Unknown causes Verified 05/31/21 13:23 sereve weakness and chest pain, do not give nitroglycerin AdvReac Unknown severe Verified 05/31/21 13:23 drop in blood pressure rosuvastatin AdvReac Unknown causes Verified 05/31/21 13:23 sereve weakness and chest pain, do not give Home Medications Medication Instructions Recorded Confirmed Type ascorbic acid (vitamin C) 500 mg 500 mg PO DAILY cap 02/27/19 05/31/21 History capsule aspirin 81 mg tablet 81 mg PO DAILY tab 02/27/19 05/31/21 History calcium 650 mg-vitamin D3 12.5 1 tab PO DAILY tab 02/27/19 05/31/21 History mcg-vitamin K 40 mcg chewable tablet (Viactiv) ezetimibe 10 mg tablet (Zetia) 10 mg PO DAILY #90 tab 11/13/20 05/31/21 Rx levothyroxine 75 mcg tablet 75 mcg PO QAM #90 tab 12/02/20 05/31/21 Rx hydrochlorothiazide 25 mg tablet 12.5 mg PO DAILY #90 tab 01/14/21 05/31/21 Rx losartan 50 mg tablet 50 mg PO DAILY #90 tab 01/14/21 05/31/21 Rx pravastatin 10 mg tablet 10 mg PO DAILY #90 tab 01/14/21 05/31/21 Rx Patient History Medical History Arthritis CAD in [place] artery Essential (primary) hypertension GERD without esophagitis Gout Hyperlipidemia Hypothyroidism Varicose vein of leg Surgical History H/O colonoscopy H/O endoscopy H/O partial thyroidectomy H/O tubal ligation Hx of cholecystectomy Hx of heart artery stent Hx of tonsillectomy Family History Brother Pancreatic cancer Myocardial infarction FHx: allergies Prostate cancer Diabetes Gallbladder disease Cardiac disorder Hypertension Lymphedema Colon cancer FHx: kidney cancer Mother Pancreatic cancer Aunt Colon cancer Deafness Son FHx: kidney cancer Father Myocardial infarction Grandmother Myocardial infarction Grandfather Stroke Other No family history of bleeding disorder Denies family history of Ovarian cancer Adverse anesthesia outcome Breast cancer Social History Smoking Status: Unknown if ever smoked Hx Alcohol Use: No Hx Substance Use: No Preferred Language: [place] Communication Ability: Effective Visual Impairment: No Limitations Hearing Ability: Use of Hearing Aid Rehab Technician Required: No Beliefs That Will Affect Care: None marital status: Current Living Situation: Alone current occupational status: retired Other Information That Helps Us Care for You: No Feels Safe at Home: Yes Safety Concerns: Feels Safe At This Time Childhood Exposure to Second-Hand Smoke: No Dental Care, Regularly: Yes Physical Activity Frequency: Daily Seatbelt Use: always Sunscreen Use: Yes Assistive Devices: Glasses and Hearing Aid - Bilateral Physical Exam Physical Exam: Gen.: No acute distress. Alert and oriented. HEENT: Anicteric sclera. Neck: No JVD. No bruit. Normal carotid upstrokes bilaterally. Cardiac: PMI was nondisplaced. No ventricular heave. Regular. Normal S1-S2. No audible murmur. No rubs, or gallops. Pulmonary: Clear to auscultation bilaterally without wheezes, rales, or rhonchi. Abdomen: Soft, nontender, nondistended, with normoactive bowel sounds. No bruits noted. Extremities: 2+ radial pulses bilaterally. 2+ posterior tibialis pulses bilaterally. No significant edema. Left lower extremity varicose veins previously noted. Psychiatric: Affect appears appropriate. Chest: Nontender to palpation. Results & Data ([facility]) Vital Signs (Past 12 Hours) Vital Signs Temp Pulse Pulse Resp BP Pulse Ox 06/01/21 11:15 36.9 C 71 18 155/74 H 100 06/01/21 09:00 62 06/01/21 07:47 36.7 C 64 16 152/72 H 99 06/01/21 03:16 36.8 C 59 L 16 132/75 96 Laboratory Results Laboratory Results - last 24 hr 05/31/21 05/31/21 05/31/21 12:05 12:10 12:10 WBC RBC Hgb Hct MCV MCH MCHC RDW Std Deviation RDW Coeff of Mary Plt Count MPV Immature Gran % (Auto) Neut % (Auto) Lymph % (Auto) [place] % (Auto) Eos % (Auto) Baso % (Auto) Neut # (Auto) Lymph # (Auto) [place] # (Auto) Eos # (Auto) Baso # (Auto) Immature Gran # (Auto) Sodium Potassium Chloride Carbon Dioxide Anion Gap BUN Creatinine Est Cr Clr Drug Dosing Est GFR ( Amer) Est GFR (Non-Af Amer) BUN/Creatinine Ratio Glucose Calcium Total Creatine Kinase 77 Cancelled Troponin I SARS-CoV-2 (PCR) NEGATIVE 05/31/21 06/01/21 06/01/21 19:55 05:42 05:42 WBC 5.50 RBC 4.38 Hgb 13.8 Hct 39.3 MCV 89.7 MCH 31.5 MCHC 35.1 RDW Std Deviation 41.4 RDW Coeff of Mary 12.6 Plt Count 241 MPV 9.6 Immature Gran % (Auto) 0.2 Neut % (Auto) 53.8 Lymph % (Auto) 33.1 Nicol[place] % (Auto) 10.7 Eos % (Auto) 2.2 Baso % (Auto) 0.0 Neut # (Auto) 2.96 Lymph # (Auto) 1.82 Nicollet # (Auto) 0.59 Eos # (Auto) 0.12 Baso # (Auto) 0.00 Immature Gran # (Auto) 0.01 Sodium Cancelled Potassium Cancelled Chloride Cancelled Carbon Dioxide Cancelled Anion Gap Cancelled BUN Cancelled Creatinine Cancelled Est Cr Clr Drug Dosing Cancelled Est GFR ( Amer) Cancelled Est GFR (Non-Af Amer) Cancelled BUN/Creatinine Ratio Cancelled Glucose Cancelled Calcium Cancelled Total Creatine Kinase Troponin I < 0.015 SARS-CoV-2 (PCR) 06/01/21 05:42 WBC RBC Hgb Hct MCV MCH MCHC RDW Std Deviation RDW Coeff of Mary Plt Count MPV Immature Gran % (Auto) Neut % (Auto) Lymph % (Auto) Nicollet % (Auto) Eos % (Auto) Baso % (Auto) Neut # (Auto) Lymph # (Auto) Nicol[place] # (Auto) Eos # (Auto) Baso # (Auto) Immature Gran # (Auto) Sodium 136 Potassium 3.9 Chloride 102 Carbon Dioxide 28 Anion Gap 6.0 BUN 16 Creatinine 0.89 Est Cr Clr Drug Dosing 38.6 Est GFR ( Amer) 70.4 Est GFR (Non-Af Amer) 60.8 BUN/Creatinine Ratio 17.8 Glucose 84 Calcium 8.8 Total Creatine Kinase Troponin I < 0.015 SARS-CoV-2 (PCR) Diagnostic Findings Telemetry personally reviewed: Sinus rhythm with PACs. ECG personally reviewed 05/31/2021: Sinus rhythm with PACs 89 beats per minute. Incomplete RBBB. LAFB. Chest x-ray 05/31/2021: No acute cardiopulmonary disease per Radiology. Medications Administered Current Inpatient Medications Acetaminophen (Acetaminophen 325 Mg Tab) 650 mg PO Q4H PRN PRN Reason: Pain or Fever Stop: 06/30/21 16:56 Aspirin (Aspirin 81 Mg Ectab) 81 mg PO DAILY [facility] Stop: 07/01/21 08:59 Last Admin: 06/01/21 09:10 Dose: 81 mg Documented by: Ezetimibe (Ezetimibe 10 Mg Tablet) 10 mg PO DAILY@1730 [facility] Stop: 06/30/21 17:29 Last Admin: 05/31/21 17:53 Dose: 10 mg Documented by: Hydrochlorothiazide (Hydrochlorothiazide 25 Mg Tab) 12.5 mg PO DAILY [facility] Stop: 06/30/21 17:04 Last Admin: 06/01/21 09:10 Dose: 12.5 mg Documented by: Levothyroxine Sodium (Levothyroxine Sodium 75 Mcg Tablet) 75 mcg PO DAILYBB [facility] Stop: 07/01/21 06:29 Last Admin: 06/01/21 06:02 Dose: 75 mcg Documented by: Losartan Potassium (Losartan Potassium 50 Mg Tab) 50 mg PO DAILY [facility] Stop: 06/30/21 17:04 Last Admin: 06/01/21 09:10 Dose: 50 mg Documented by: Multivitamins/Minerals (Calcium 600mg + Vit D 400 Iu Tab) 1 tab PO DAILY [facility] Stop: 07/01/21 08:59 Last Admin: 06/01/21 09:10 Dose: 1 tab Documented by: Ondansetron HCl (Ondansetron Inj 2 Mg/Ml 2 Ml Vial) 4 mg IV Q6H PRN PRN Reason: Nausea Stop: 06/30/21 16:56 Polyethylene Glycol (Polyethylene (Miralax) 17 Gm Pack) 17 gm PO DAILY PRN PRN Reason: Constipation Stop: 06/30/21 16:56 Pravastatin Sodium (Pravastatin Sod 10 Mg Tab) 10 mg PO HS [facility] Stop: 06/30/21 20:59 Last Admin: 05/31/21 20:50 Dose: 10 mg Documented by: PG Care Time/CCT Total # of Minutes Spent Total Time Spent with Patient: Total time spent is greater than 50% in coordination of care (as documented) at patient's floor/unit and/or counseling patient: Coding Level of Care Code 08601 Office/Outpt Visit, Est Diagnoses Chest pain R07.2 Chest pain type: precordial pain Heart palpitations R00.2 Decreased exercise tolerance R68.89 CAD in [place] artery I25.10 Hx of heart artery stent Z95.5 Hyperlipidemia E78.5 Essential (primary) hypertension I10 (1) Chest pain Chest pain type: precordial pain Qualified Code(s): R07.2 - Precordial pain
--- NOTE | 2021-06-01 15:06 | Discharge Summary ---
Date of Service June 01, 2021 Admission HPI Per Admitting Provider Evangelina Sandoval is an 81 year old female who presents to the ER with chest pain. She reports this has been going on for the last week with increasing severity and frequency. She is currently having chest pain radiating to her back and neck, lasting for 2 minutes at a time with complete pain free times of around 5- 30 minutes apart. Severity 4/10, no worse on exertion, palpation of position. Initially epigastric pain then moved up, now mainly in back and shoulders. Associated lightheadedness. So severe today she felt liek she was going to faint. No associated diaphoresis or shortness of breath. She reports other chest pains usually under left breast radiating down left arm, numbing ache, off and on for years. Current pain has only been present for the last week. She doesn't feel anxious but has increased stress recently with her health. In the ER initial troponin negative. Non-ischemic EKG. She was referred to medicine for chest pain rule out ACS. Principal Diagnosis 1. Chest painacute coronary syndrome has ruled out and negative stress echocardiogram 2. Anxietylikely the etiology of #1 Discharge Exam General: Resting comfortably in her bedside chair. She appears much younger than her stated age. NAD. HEENT: Head is AT/NC buccal mucosa is moist and pink Neck: No JVD. Negative hepatojugular reflex Cardiac: RRR without M/G/R Lungs: CTA without W/R/R Abdomen: Normoactive X4. Soft and nontender in all quadrants. Extremities: No peripheral clubbing cyanosis or edema Neuro: A&O X4 cranial nerves II through XII are grossly intact no focal neuro deficits Skin: No obvious skin lesions or rashes Psych: Appropriate affect pleasant and cooperative Discharge Data Allergies Allergy/AdvReac Type Severity Reaction Status Date / Time doxycycline Allergy Unknown rash Verified 05/31/21 13:23 metoprolol Allergy Unknown severe Verified 05/31/21 13:23 rash over entire body atorvastatin AdvReac Unknown causes Verified 05/31/21 13:23 sereve weakness and chest pain, do not give nitroglycerin AdvReac Unknown severe Verified 05/31/21 13:23 drop in blood pressure rosuvastatin AdvReac Unknown causes Verified 05/31/21 13:23 sereve weakness and chest pain, do not give Consultations 05/31/21 12:45 ED Decision to Admit Stat 05/31/21 13:46 Consult Cardiology Routine Assessment & Plan (1) Chest pain: (2) Heart palpitations: (3) Decreased exercise tolerance: (4) CAD in [place] artery: (5) Hx of heart artery stent: (6) Hyperlipidemia: (7) Essential (primary) hypertension: ASSESSMENT/PLAN: 1.Chest pain: Chronic atypical chest pain. Troponin has been undetectable. ECG without dynamic changes. Stress echo had been ordered as an outpatient and arrange for to be done today. Stress echo performed and did not demonstrate ischemic changes. Chest pain appears to be noncardiac in nature. Defer to primary service or PCP. 2. CAD s/p LAD PCI: Atypical symptoms but no definite angina. Decreased exercise tolerance however since/stress test so stress echo ordered to better quantitate this, and stress echo was negative for ischemic changes with good exercise tolerance. Continue aspirin 81 mg daily indefinitely, given prior PCI. She had a rash on Lopressor. Continue statin therapy as tolerated. She did not tolerate nitroglycerin. Call 911 for angina that does not resolve within 5 minutes. 3. Hypertension: Blood pressure mildly elevated. Blood pressure had been well controlled at home however. No changes made at this time but if blood pressure continues to be elevated, could further titrate losartan. 4. Dyslipidemia: She is tolerating pravastatin 10 mg daily. She did not tolerate pravastatin 20 mg daily. LDL has increased and is not optimized. She is intolerant to Crestor, Lipitor, and higher doses of pravastatin (20 mg). Continue Zetia, which she is tolerating well. Labs have been arranged by her PCP. 5. Palpitations: She has event monitor as an outpatient and was encouraged to resume this when discharge. No arrhythmia on telemetry while here. 6. Decreased exercise tolerance: Stress echo as above. Exercise tolerance on stress test similar to November 2020 stress. 7. Disposition: Can be discharged home from a Cardiology perspective. Patient care communicated with Mignon Jaramillo of the primary hospitalist service. Thank you for allowing me to participate in the care of your patient. Please call for any other questions or concerns. Sincerely, Mauricio Bishop M.D. Procedures Performed Stress echocardiogram: Negative stress echocardiogram for ischemia at 103% MPHR. Negative exercise ECG for ischemia at 103% MPHR Appropriate blood pressure response to exercise No arrhythmia Study terminated due to fatigue but no chest pain reported Good exercise tolerance No change compared to 12/04/2020 Hospital Course (1) Chest pain: - 81 y/o WF with known h/o CAD s/p LAD stent in 2007 with ongoing/intermittent CP at rest - ACS has since ruled out (troponin negative x3). No EKG changes - Stress echo done November and no evidence of ischemia - a on ASA, statin therapy and ARB. Intolerant to BB (rash) - Had 10 reports of discomfort just this morning (which she describes as pressure in her neck and shoulders with radiation into her chest. At times she feels short of breath and nauseated but no diaphoresis Cardiology was consulted. has subsequently underwent a stress echocardiogram that was negative for ischemia. Cardiac etiology has since ruled out In lengthy discussion with the patient, she does have some underlying anxiety as her is not well. She believes that her anxiety may be triggering her symptoms but given her underlying CAD and concerned that she is having "a heart attack" this further drives her anxiety which only makes her symptoms worse -Plan is for discharge to home today with addition of BuSpar which I am hoping will help alleviate her symptoms as I do believe they may be driven by anxiety Patient should follow-up with her PCP within 7 to 10 days Patient should follow up with cardiology as outlined by them Patient already in the process of an event monitor. She should resume this upon discharge to home today (2) Anxiety: Note addition of BuSpar as outlined above (3) Heart palpitations: Patient established with cardiology and currently in the process of an event monitor. Should resume this upon discharge today (4) CAD in [place] artery: Continue aspirin, ARB, and statin as prior to hospitalization. Intolerant to beta-blockers as outlined above (5) Essential (primary) hypertension: Continue ARB (6) Hyperlipidemia: Continue pravastatin and Zetia as prior to hospitalization (7) Hypothyroidism: Continue Synthroid as prior to hospitalization Total Time Total Time Spent Total Time Spent (In Minutes): 45 minutes Discharge Plan Discharge Items Patient Disposition: Home - Self-Care Reason For Visit: CHEST PAIN RULE OUT NV Discharge Diagnosis: 1. Chest Pain- Acute Coronary syndrome Ruled out. 2. Anxiety Activity: Resume your previous activity Non-emergency contact: Primary Care Provider and Material Planner Call non-emergency contact if: you have any medication questions Follow-up/Referrals: Joyce Lester MD [Primary Care Provider] - Diet: Heart Healthy Addtl Attending Provider Instructions: - you were hospitalized because of chest discomfort - you did not have a heart attack - you had a stress echo that was negative for ischemic disease - I suspect most of this might be anxiety driven. As discussed, will start buspar 5mg twice a day - follow up with your family doctor: 5-7 days - follow up with cardiology: 2 weeks - return to the ED as needed Pending Studies at Discharge: No Stand-Alone Forms: My [facility] Medications and DC Order Prescriptions: New buspirone 5 mg tablet 5 mg PO BID Qty: 60 RF: 0 Continued hydrochlorothiazide 25 mg tablet 12.5 mg PO DAILY Qty: 90 RF: 3 pravastatin 10 mg tablet 10 mg PO DAILY Qty: 90 RF: 3 losartan 50 mg tablet 50 mg PO DAILY Qty: 90 RF: 3 calcium-vitamin D3-vitamin K [Viactiv] 650 mg-12.5 mcg-40 mcg tablet,chewable 1 tab PO DAILY RF: 0 ascorbic acid (vitamin C) 500 mg capsule 500 mg PO DAILY RF: 0 aspirin 81 mg tablet 81 mg PO DAILY RF: 0 ezetimibe [Zetia] 10 mg tablet 10 mg PO DAILY Qty: 90 RF: 3 levothyroxine 75 mcg tablet 75 mcg PO QAM Qty: 90 RF: 3 Discharge Orders: Discharge Order (Routine); Ordered 06/01/21 Ordered By: Mignon Jaramillo Admission Data Admit Date/Time: 05/31/21 13:45 Attending Provider: Aidan Najera Admit Provider: Isaias Gallego Primary Care Provider: Joyce Lester Other Providers: Yohannes Bishop ; Isaias Gallego Other Interventions: Discharge Summary Assessment (RN) Last Done: 06/01/21 14:40 Supervising Physician Co-Signing Physician Notes Patient seen and examined on the day of discharge. I agree with the discharge summary by Mignon OLIVO. I have reviewed the chart including labs, imaging and plans for discharge. patient feeling better, no further chest pain, had a negative stress echocardiogram - Chest pain, likely anxiety: negative for ACS, negative stress echocardiogram, patient feels better, discharge to home Coding Level of Care Code 78827 OBS Care - Discharge Diagnoses Chest pain R07.2 Chest pain type: precordial pain Anxiety F41.9 Heart palpitations R00.2 CAD in [place] artery I25.10 Essential (primary) hypertension I10 Hyperlipidemia E78.5 Hypothyroidism E03.9
--- NOTE | 2021-06-01 23:10 | Electrocardiogram Report ---
Test Reason : Blood Pressure : / mmHG Vent. Rate : 089 BPM Atrial Rate : 078 BPM P-R Int : 154 ms QRS Dur : 098 ms QT Int : 384 ms P-R-T Axes : 069 -63 058 degrees QTc Int : 467 ms Sinus rhythm with Premature supraventricular complexes Incomplete right bundle branch block Left anterior fascicular block Abnormal ECG When compared with ECG of 19-MAY-2021 02:13, No significant change Confirmed by Yohannes Bishop ([id number]) on 06/01/2021 11:09:55 PM Referred By: Confirmed By:Yohannes Bishop
== END 2021-06-01 16:00 | disposition home or self-care (01) ==
LOC: ED 11:27 → 2N 11:27 → SUATTDRO 13:45 → 2N 15:45
DX: R07.9 Chest pain, unspecified; Z88.1 Allergy status to other antibiotic agents; R00.2 Palpitations; Z95.818 Presence of other cardiac implants and grafts; Z79.82 Long term (current) use of aspirin; I11.9 Hypertensive heart disease without heart failure; Z79.899 Other long term (current) drug therapy; E78.5 Hyperlipidemia, unspecified; Z20.822 Contact with and (suspected) exposure to COVID-19; K21.9 Gastro-esophageal reflux disease without esophagitis; I49.1 Atrial premature depolarization; I25.10 Atherosclerotic heart disease of native coronary artery without angina pectoris; E03.9 Hypothyroidism, unspecified; Z88.8 Allergy status to other drugs, medicaments and biological substances

== ENCOUNTER 2022-04-20 12:06 | Observation (INO) ==
[2022-04-20 12:45] LABS: Eosinophils # (auto) 0.08 K/uL (0-0.50); Eosinophils % (auto) 1.4 %; Hematocrit (blood only) 41.9 % (34.1-44.9); Hemoglobin 14.9 g/dl (12.0-16.0); Immature Granulocytes # (auto) 0.01 K/uL (0.00-0.02); Immature Granulocytes % (auto) 0.2 %; Lymphocytes # (auto) 1.76 K/uL (1.2-3.4); Lymphocytes % (auto) 30.2 %; Mean Corpuscular Hemoglobin 31.2 pg (25.0-34.0); Mean Corpuscular Hgb Conc 35.6 g/dL (32.0-36.0); Mean Corpuscular Volume 87.7 fL (80.0-100.0); Mean Platelet Volume 9.4 fL (9.4-12.3); Monocytes # (auto) 0.55 K/uL (0.24-0.82); Monocytes % (auto) 9.5 %; Neutrophils # (auto) 3.42 K/uL (1.4-6.5); Neutrophils % (auto) 58.7 %; Platelet Count 266 K/uL (130-400); RDW Coefficient of Variation 11.9 % (11.5-14.5); RDW Standard Deviation 38.5 fL (36.4-46.3); Red Blood Count 4.78 M/uL (3.93-5.22); White Blood Count 5.82 K/ul (4.8-10.8)
--- NOTE | 2022-04-20 12:52 | Emergency Department Note ---
Impression & Plan Atypical chest pain, Acute hyponatremia, Hypertension ED Provider Note NAME: KACI BURKS AGE: 82 SEX: F : 1940 ARRIVES VIA: Walk-In INFORMANT: [Patient][, ] ED PROVIDER(S): [Wilfredo Flores MD] Chief Complaint: Chest pain HPI: Patient presents due to concern for chest pain which has been ongoing since yesterday morning. The patient states that it was left-sided and did go to her left neck. Patient states that this is more of an ache as opposed to a sharp jabbing pain which she required a prior stent. Patient does follow with Dr. Bishop. The patient has had lower chest tightness that is worse with exertion ongoing for several months. The patient denies any current cough or fever. The patient was referred here for further evaluation treatment after she had called her primary care office this morning as she had noted to be dizzy and lightheaded. Patient states that it is somewhat positional in nature but denies any vertiginous symptoms. Patient denies any tinnitus or headache. Patient denies any numbness tingling or focal weakness. No strokelike symptoms. The patient has been taking some aspirin after she had a worsening bout of her chest pain yesterday morning. It did last for 3 to 4 hours and subsided but was still present. Patient currently rates her chest tightness a 2 out of 10 yesterday it was 3 or 4 out of 10. Patient denies any calf pain or history of DVT or PE. No recent surgeries procedures or hospitalizations. ROS: See HPI for pertinent positives and negatives. A total of 10 systems were reviewed and otherwise negative. Past medical history: See below Surgical history: See below Social history: See below Physical Exam: GENERAL: NAD, [wearing a mask,] non-toxic. Wearing glasses, hard of hearing. EYE EXAM: Normal conjunctiva. PERRL, no anisocoria and EOM's grossly intact w/o pain. NECK: Supple, no nuchal rigidity, no adenopathy, non-tender. No signs of meningismus. FROM of the neck with good chin to chest and neck extension. No stridor. Well-healed thyroidectomy scar LUNGS: Clear to auscultation. Normal chest wall mechanics. HEART: NSR, no MRG. ABDOMEN: Abdomen soft, non-tender, normo-active bowel sounds, no masses, no rebound or guarding. BACK: No CVA TTP. SKIN: No rashes and no bruising. UPPER EXTREMITIES: Upper extremities are grossly normal. LOWER EXTREMITIES: Grossly normal, no edema. Negative Homans' sign bilaterally. NEURO EXAM: A&O x3, cranial nerves II-XII grossly intact, normal speech, moves all 4 extremities. Differential diagnoses: Cardiac ischemia, aortic dissection, pulmonary embolism, pneumothorax, pneumonia, pericarditis, myocarditis, esophageal rupture, GERD, cholecystitis, pancreatitis, musculoskeletal, as well as other pathologies. Course: Patient was seen and evaluated the bedside. Full history physical exam was performed. EKG interpreted by me Normal sinus rhythm, rate of 80, normal intervals, left axis deviation, T wave inversion anteriorly. No obvious ST depressions. Incomplete right bundle. Patient may have slight progressive change in V3 compared to prior completed May 31, 2021 Imaging Studies: See Below Cardiac monitoring: An order was placed for continuous cardiac monitoring. The monitor shows a rate of 72 with sinus rhythm. MDM: Patient presents due to concern for chest pain and tightness. Blood work was obtained along with an EKG troponin and chest x-ray. Patient has a normal white count H&H and platelet count. Kidney function is unremarkable with unremarkable troponin. EKG may show slight change in V3 from comparison. Chest x-ray with no acute process. Patient did have a recurrence of some chest discomfort and a repeat was obtained. No obvious changes. The patient's initial troponin is negative. Mild hyponatremia 132. The patient did receive some nitro which did improve her blood pressure as well as her chest tightness. Given the patient's prior history of CAD do not think it unreasonable for the patient to stay in hospital. I did speak the on-call hospitalist Dr. Hernandez and the patient was admitted to the medicine service Past Med/Surg History Medical History Arthritis CAD in [place] artery Essential (primary) hypertension GERD without esophagitis Gout Hyperlipidemia Hypothyroidism Nondisplaced fracture of fifth right metatarsal bone Nondisplaced fracture of left radial styloid process, initialencounter for closed fracture Varicose vein of leg Surgical History H/O colonoscopy H/O endoscopy H/O partial thyroidectomy H/O tubal ligation Hx of cholecystectomy Hx of heart artery stent Hx of tonsillectomy Family History Brother Pancreatic cancer Prostate cancer Diabetes Gallbladder disease Cardiac disorder Hypertension Lymphedema Colon cancer FHx: kidney cancer Myocardial infarction FHx: allergies Mother Pancreatic cancer Aunt Colon cancer Deafness Son FHx: kidney cancer Father Myocardial infarction Grandmother Myocardial infarction Grandfather Stroke Other No family history of bleeding disorder Denies family history of Ovarian cancer Adverse anesthesia outcome Breast cancer Social History Smoking Status: Never smoker Second Hand Exposure: No; Hx Alcohol Use: No Hx Substance Use: No Preferred Language: P[place] Communication Ability: Effective Visual Impairment: No Limitations Hearing Ability: Use of Hearing Aid Warehouse Administrative Assistant Required: No Beliefs That Will Affect Care: None marital status: Current Living Situation: Spouse current occupational status: retired 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, 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 Feels Safe at Home: Yes Childhood Exposure to Second-Hand Smoke: No Diet Comment: no red meat Dental Care, Regularly: Yes Physical Activity Frequency: Daily Seatbelt Use: always Sunscreen Use: Yes Assistive Devices: Hearing Aid - Bilateral Allergies Allergies Allergy/AdvReac Type Severity Reaction Status Date / Time doxycycline Allergy Unknown rash Verified 12/30/21 16:19 metoprolol Allergy Unknown severe Verified 12/30/21 16:19 rash over entire body atorvastatin AdvReac Unknown causes Verified 12/30/21 16:19 sereve weakness and chest pain, do not give nitroglycerin AdvReac Unknown severe Verified 12/30/21 16:19 drop in blood pressure rosuvastatin AdvReac Unknown causes Verified 12/30/21 16:19 sereve weakness and chest pain, do not give Home Meds Home Medications Medication Instructions Recorded Confirmed ascorbic acid (vitamin C) 500 mg 500 mg PO DAILY 02/27/19 12/30/21 capsule aspirin 81 mg tablet 81 mg PO DAILY 02/27/19 12/30/21 calcium 650 mg-vitamin D3 12.5 1 tab PO DAILY 02/27/19 12/30/21 mcg-vitamin K 40 mcg chewable tablet (Viactiv) Previous Rx's Medication Instructions Recorded hydrochlorothiazide 25 mg tablet 12.5 mg PO DAILY #90 tabs 01/14/21 ezetimibe 10 mg tablet (Zetia) 10 mg PO DAILY #90 tabs 10/02/21 levothyroxine 75 mcg tablet 75 mcg PO QAM #90 tabs 11/07/21 losartan 50 mg tablet 50 mg PO DAILY #90 tabs 12/12/21 pravastatin 10 mg tablet 10 mg PO DAILY #90 tabs 03/16/22 Results & Data (ED) Vital Signs Vital Signs - 24 hr 04/20/22 12:14 04/20/22 12:42 04/20/22 12:42 Temperature 35.8 C L Temperature Source Temporal Artery Scan Pulse Rate 81 Pulse Rate [Apical] 67 Pulse Rhythm Regular Pulse Rhythm [Apical] Pulse Strength Normal Respiratory Rate 20 18 Respiratory Effort / Characteristics Non-Labored Spontaneous Respiratory Depth Normal Respiratory Pattern Regular Blood Pressure 189/86 H Blood Pressure [Left Arm] 192/100 H Blood Pressure Mean 120 Blood Pressure Mean [Left Arm] 130 Blood Pressure Position Sitting Pulse Oximetry 98 96 100 Oxygen Delivery Method Room Air Room Air Room Air Sepsis Recent Fever Within 48 Hours No Sepsis New/Unexplained Change in Mental Status No Sepsis Action Taken by Nursing No Action Required 04/20/22 14:53 04/20/22 15:06 04/20/22 17:20 Temperature Temperature Source Pulse Rate Pulse Rate [Apical] 76 76 Pulse Rhythm Pulse Rhythm [Apical] Regular Pulse Strength Respiratory Rate 18 18 Respiratory Effort / Characteristics Respiratory Depth Normal Respiratory Pattern Blood Pressure Blood Pressure [Left Arm] 144/76 H Blood Pressure Mean Blood Pressure Mean [Left Arm] 98 Blood Pressure Position Pulse Oximetry 96 95 96 Oxygen Delivery Method Room Air Room Air Room Air Sepsis Recent Fever Within 48 Hours Sepsis New/Unexplained Change in Mental Status Sepsis Action Taken by Custodial Medications Current Medication List: was personally reviewed by me Laboratory Data Attestation: I reviewed the patient's lab results. Result diagrams: 04/20/22 12:33 04/20/22 12:33 Lab Results 04/20/22 04/20/22 04/20/22 Range/Units 12:33 12:33 12:33 WBC 5.82 (4.8-10.8) K/ul RBC 4.78 (3.93-5.22) M/uL Hgb 14.9 (12.0-16.0) g/dl Hct 41.9 (34.1-44.9) % MCV 87.7 (80.0-100.0) fL MCH 31.2 (25.0-34.0) pg MCHC 35.6 (32.0-36.0) g/dL RDW Std Deviation 38.5 (36.4-46.3) fL RDW Coeff of Mary 11.9 (11.5-14.5) % Plt Count 266 (130-400) K/uL MPV 9.4 (9.4-12.3) fL Immature Gran % (Auto) 0.2 % Neut % (Auto) 58.7 % Lymph % (Auto) 30.2 % White % (Auto) 9.5 % Eos % (Auto) 1.4 % Baso % (Auto) 0.0 % Neut # (Auto) 3.42 (1.4-6.5) K/uL Lymph # (Auto) 1.76 (1.2-3.4) K/uL White # (Auto) 0.55 (0.24-0.82) K/uL Eos # (Auto) 0.08 (0-0.50) K/uL Baso # (Auto) 0.00 (0-0.2) K/uL Immature Gran # (Auto) 0.01 (0.00-0.02) K/uL PT 10.3 (9.0-12.0) Seconds INR 1.0 (0.9-1.1) APTT 27.3 (21.0-31.0) Seconds PTT Ratio 1.0 Sodium 132 L (136-145) mmol/L Potassium 3.8 (3.5-5.1) mmol/L Chloride 97 L (98-107) mmol/L Carbon Dioxide 27 (21-32) mmol/L Anion Gap 8 (3-11) BUN 16 (6-23) mg/dl Creatinine 0.86 (0.6-1.2) mg/dl Est Cr Clr Drug Dosing 40.3 ml/min Est GFR ( Amer) 72.9 ml/min Est GFR (Non-Af Amer) 62.9 ml/min BUN/Creatinine Ratio 18.6 (10-20) Glucose 93 (70-99(Fasting)) mg/dl Calcium 9.2 (8.5-10.1) mg/dl Total Bilirubin 0.9 (0.2-1.0) mg/dl AST 25 (13-39) U/L ALT 18 (7-52) U/L Alkaline Phosphatase 59 (34-104) U/L Troponin I High Sens 3.7 (0-14) pg/ml Total Protein 6.6 (6.0-8.3) gm/dl Albumin 4.5 (3.4-5.0) gm/dl Globulin 2.1 L (2.5-4.0) gm/dl Albumin/Globulin Ratio 2.1 H (0.9-2) SARS-CoV-2, RNA, NAAT (NEGATIVE) 04/20/22 Range/Units 17:27 WBC (4.8-10.8) K/ul RBC (3.93-5.22) M/uL Hgb (12.0-16.0) g/dl Hct (34.1-44.9) % MCV (80.0-100.0) fL MCH (25.0-34.0) pg MCHC (32.0-36.0) g/dL RDW Std Deviation (36.4-46.3) fL RDW Coeff of Mary (11.5-14.5) % Plt Count (130-400) K/uL MPV (9.4-12.3) fL Immature Gran % (Auto) % Neut % (Auto) % Lymph % (Auto) % White % (Auto) % Eos % (Auto) % Baso % (Auto) % Neut # (Auto) (1.4-6.5) K/uL Lymph # (Auto) (1.2-3.4) K/uL White # (Auto) (0.24-0.82) K/uL Eos # (Auto) (0-0.50) K/uL Baso # (Auto) (0-0.2) K/uL Immature Gran # (Auto) (0.00-0.02) K/uL PT (9.0-12.0) Seconds INR (0.9-1.1) APTT (21.0-31.0) Seconds PTT Ratio Sodium (136-145) mmol/L Potassium (3.5-5.1) mmol/L Chloride (98-107) mmol/L Carbon Dioxide (21-32) mmol/L Anion Gap (3-11) BUN (6-23) mg/dl Creatinine (0.6-1.2) mg/dl Est Cr Clr Drug Dosing ml/min Est GFR ( Amer) ml/min Est GFR (Non-Af Amer) ml/min BUN/Creatinine Ratio (10-20) Glucose (70-99(Fasting)) mg/dl Calcium (8.5-10.1) mg/dl Total Bilirubin (0.2-1.0) mg/dl AST (13-39) U/L ALT (7-52) U/L Alkaline Phosphatase (34-104) U/L Troponin I High Sens (0-14) pg/ml Total Protein (6.0-8.3) gm/dl Albumin (3.4-5.0) gm/dl Globulin (2.5-4.0) gm/dl Albumin/Globulin Ratio (0.9-2) SARS-CoV-2, RNA, NAAT NEGATIVE (NEGATIVE) Administered Medications Discontinued Medications Nitroglycerin (Nitroglycerin 2% Ointment 30gm Tube) Confirm Administered Dose 18 inch .ROUTE .STK-MED ONE Stop: 04/20/22 13:49 Last Admin: 04/20/22 13:54 Dose: 18 inch Documented By: KV Nitroglycerin (Nitroglycerin 2% Ointment 30gm Tube) 0.5 inch EXT NOW ONE Stop: 04/20/22 14:06 Last Admin: 04/20/22 14:16 Dose: Not Given Documented By: MMZ Imaging Data Radiologist's Impression: Chest X-Ray 04/20/22 13:18 XR chest 1V portable HISTORY: 82 years-old Female chest pain/tightness acute chest pain COMPARISON: Chest radiograph 05/31/2021 TECHNIQUE: Portable AP view of the chest FINDINGS: Nipple shadows project over the lung bases. The heart is mildly enlarged. No pne umothorax, pleural effusion, airspace consolidation or overt pulmonary edema. Degenerative changes of the shoulders and spine. Bones of the chest appear grossly intact. IMPRESSION: No acute process. ACT 112: Negative or not required by law. The above report was generated using voice recognition software. It may contain grammatical, syntax or spelling errors. Electronically signed by: Ap Reyes M.D. 04/20/2022 1:48 PM Discharge Plan Visit Data Chief Complaint: Chest Pain Stated Complaint: REF BY DR, DIZZINESS, CHEST PAIN ED Provider: Wilfredo Flores Discharge Problem: Atypical chest pain, Acute hyponatremia, Hypertension Patient Disposition: Admitted As Inpatient Forms Stand Alone Forms: My [facility] Prescriptions Prescriptions: No Action hydrochlorothiazide 25 mg tablet 12.5 mg PO DAILY Qty: 90 3RF ezetimibe [Zetia] 10 mg tablet 10 mg PO DAILY Qty: 90 3RF pravastatin 10 mg tablet 10 mg PO DAILY Qty: 90 3RF calcium-vitamin D3-vitamin K [Viactiv] 650 mg-12.5 mcg-40 mcg tablet,chewable 1 tab PO DAILY ascorbic acid (vitamin C) 500 mg capsule 500 mg PO DAILY aspirin 81 mg tablet 81 mg PO DAILY losartan 50 mg tablet 50 mg PO DAILY Qty: 90 3RF levothyroxine 75 mcg tablet 75 mcg PO QAM Qty: 90 3RF Referrals Referrals: Joyce Lester MD [Primary Care Provider] -
[2022-04-20 13:01] LABS: Partial Thromboplastin Time 27.3 Seconds (21.0-31.0); Prothrombin Time 10.3 Seconds (9.0-12.0)
[2022-04-20 13:14] LABS: Troponin I High Sensitivity 3.7 pg/ml (0-14)
[2022-04-20 13:35] LABS: Albumin Globulin Ratio 2.1 (0.9-2); Albumin Level 4.5 gm/dl (3.4-5.0); BUN Creatinine Ratio 18.6 (10-20); Bilirubin,Total 0.9 mg/dl (0.2-1.0); Calcium 9.2 mg/dl (8.5-10.1); Creatinine Clr Calc Pharmacy 40.3 ml/min; Est GFR (African American) 72.9 ml/min; Est GFR (Non-African American) 62.9 ml/min; Globulin 2.1 gm/dl (2.5-4.0); Potassium 3.8 mmol/L (3.5-5.1); Total Protein 6.6 gm/dl (6.0-8.3)
[2022-04-20] MEDS ORDERED: NITROGLYCERIN 2% OINTMENT 30GM TUBE ONE (13:48)
--- NOTE | 2022-04-20 13:50 | XRay Report ---
XR chest 1V portable HISTORY: 82 years-old Female chest pain/tightness acute chest pain COMPARISON: Chest radiograph 05/31/2021 TECHNIQUE: Portable AP view of the chest FINDINGS: Nipple shadows project over the lung bases. The heart is mildly enlarged. No pneumothorax, pleural ef fusion, airspace consolidation or overt pulmonary edema. Degenerative changes of the shoulders and sp ine. Bones of the chest appear grossly intact. IMPRESSION: No acute process. ACT 112: Negative or not required by law. The above report was generated using voice recognition software. It may contain grammatical, syntax o r spelling errors. Electronically signed by: Ap Reyes M.D. 04/20/2022 1:48 PM
[2022-04-20] MEDS ORDERED: NITROGLYCERIN 2% OINTMENT 30GM TUBE EXT ONE (14:05)
--- NOTE | 2022-04-20 15:54 | History & Physical Report ---
Date of Service April 20, 2022 Assessment & Plan (1) Chest pain: Plan: Chest pain radiating to left shoulder; CAD with history of PCI to LAD EKG: NSR, no ST elevation/depressions, T wave inversions in V1, V3, aVL,II -No leukocytosis -Hemoglobin 14.9 -Sodium 132 -Potassium 3.8 -Magnesium pending -High-sensitivity troponin 3.7, repeat pending -CXR: No acute process Continue losartan 50 mg daily trop trended overnight Echo pending Stress echo 05/2021: Negative No beta-frances due to development of rash on beta-frances/Lopressor - Exercise/exertion induced sx with strong history, but reassured given EKG and negative trop >12 hours after sx onset Hypertension Continue losartan, not on beta-frances due to allergy as noted HLD Continue statin. Has not tolerated statins higher than pravastatin 10, adjunct with Zetia. Patient has declined PCSK9. Intolerant to multiple other statins. Hypothyroidism Continue Synthroid 75 mcg daily TSH/T4 pending Dispo: Telemetry for cardiac eval CODE STATUS: Full code Diet: Heart healthy DVT prophylaxis: Lovenox (2) CAD in [place] artery: (3) GERD without esophagitis: (4) Hyperlipidemia: (5) Hypothyroidism: History of Present Illness Primary Care Provider: Joyce Lester MD Evangelina is an 82-year-old female who presents with 24 hours of chest pain which radiates into the left side and neck. Feels more of an ache compared to the jabbing pain she had with her prior cardiac pain requiring stenting. Endorses chest tightness for several months. Pain has been lasting 3 to 4 hours and is intermittent Evangelina reports has been having intermittent pain which goes from below the L breast, through chest, into the L shoulder and into both sides of her neck. BP is elevated during these episodes. Also gets lightheaded spells off and on for the last few weeks. Yesterday they were persistent through the day, somewhat improved with sitting and rest. Nemo off balance and lightheaded, but no room spinning. +mild reduction in breathing tolerance to walking the last few months, walking a little slower but denies SoB. Her chest pain is not associated with SoB or sweating. Pain lasted for several hours yesterday from when she got up, through breakfast, and overall ~6am-mid afternoon. Rest improved the pain. Walking and exercise seemed to bring the pain out and make it worse. Dull achy pain, not sharp. NO recent illnesses COVID omicron booster 2 weeks ago No fevers, chills, or sweats. +fatigue after covid booster day or two after but other than that energy is OK and otherwise tolerated the vaccination. Took synthroid, BP meds, and water pill (hctz) and ASA today. Medical History: Reviewed Medications: Reviewed Surgical History: Reviewed Allergies: Reviewed Social History: No current or former tobacco, Etoh, MM, or rec drug use Code Status:Rocio Sandoval [phone] surrogate DM in an emergency. Full Code Allergies Allergy/AdvReac Type Severity Reaction Status Date / Time doxycycline Allergy Unknown rash Verified 12/30/21 16:19 metoprolol Allergy Unknown severe Verified 12/30/21 16:19 rash over entire body atorvastatin AdvReac Unknown causes Verified 12/30/21 16:19 sereve weakness and chest pain, do not give nitroglycerin AdvReac Unknown severe Verified 12/30/21 16:19 drop in blood pressure rosuvastatin AdvReac Unknown causes Verified 12/30/21 16:19 sereve weakness and chest pain, do not give Home Medications Medication Instructions Recorded Confirmed Type ascorbic acid (vitamin C) 500 mg 500 mg PO DAILY 02/27/19 12/30/21 History capsule aspirin 81 mg tablet 81 mg PO DAILY 02/27/19 12/30/21 History calcium 650 mg-vitamin D3 12.5 1 tab PO DAILY 02/27/19 12/30/21 History mcg-vitamin K 40 mcg chewable tablet (Viactiv) hydrochlorothiazide 25 mg tablet 12.5 mg PO DAILY #90 tabs 01/14/21 12/30/21 Rx ezetimibe 10 mg tablet (Zetia) 10 mg PO DAILY #90 tabs 10/02/21 12/30/21 Rx levothyroxine 75 mcg tablet 75 mcg PO QAM #90 tabs 11/07/21 12/30/21 Rx losartan 50 mg tablet 50 mg PO DAILY #90 tabs 12/12/21 12/30/21 Rx pravastatin 10 mg tablet 10 mg PO DAILY #90 tabs 03/16/22 Rx Past Med/Surg History Medical History Arthritis CAD in [place] artery Essential (primary) hypertension GERD without esophagitis Gout Hyperlipidemia Hypothyroidism Nondisplaced fracture of fifth right metatarsal bone Nondisplaced fracture of left radial styloid process, initialencounter for closed fracture Varicose vein of leg Surgical History H/O colonoscopy H/O endoscopy H/O partial thyroidectomy H/O tubal ligation Hx of cholecystectomy Hx of heart artery stent Hx of tonsillectomy Family History Brother Pancreatic cancer Prostate cancer Diabetes Gallbladder disease Cardiac disorder Hypertension Lymphedema Colon cancer FHx: kidney cancer Myocardial infarction FHx: allergies Mother Pancreatic cancer Aunt Colon cancer Deafness Son FHx: kidney cancer Father Myocardial infarction Grandmother Myocardial infarction Grandfather Stroke Other No family history of bleeding disorder Denies family history of Ovarian cancer Adverse anesthesia outcome Breast cancer Social History Smoking Status: Never smoker Second Hand Exposure: No; Hx Alcohol Use: No Hx Substance Use: No Preferred Language: [place] Communication Ability: Effective Visual Impairment: No Limitations Hearing Ability: Use of Hearing Aid Professor Of Exercise Science Required: No Beliefs That Will Affect Care: None marital status: Current Living Situation: Spouse current occupational status: retired 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 NAD. Cooperative. HEENT: Atraumatic, normocephalic. Pulm: CTAB A&P. -wheezes, -rales, -rhonchi. Symmetrical chest rise. No increased work of breathing. No respiratory distress. Cardiac: RRR, -mrg. Radial pulses intact and symmetrical. Abdominal: Nontender, nondistended, soft. BS present. Results & Data Results & Data ([facility]) Vital Signs (Past 12 Hours) Vital Signs Temp Pulse Pulse Resp BP BP Pulse Ox 10/03/22 15:06 76 18 144/76 H 95 04/20/22 14:53 96 04/20/22 12:42 67 18 192/100 H 100 04/20/22 12:42 96 04/20/22 12:14 35.8 C L 81 20 189/86 H 98 O2 Del Method 04/20/22 15:06 Room Air 04/20/22 14:53 Room Air 04/20/22 12:42 Room Air 04/20/22 12:42 Room Air 04/20/22 12:14 Room Air PG Care Time/CCT Total # of Minutes Spent Total Time Spent with Patient: Total time spent is greater than 50% in coordination of care (as documented) at patient's floor/unit and/or counseling patient: Coding Level of Care Code INT OBSERVATION CARE 50M LVL 2 Diagnoses Chest pain R07.9 CAD in [place] artery I25.10 GERD without esophagitis K21.9 Hyperlipidemia E78.5 Hypothyroidism E03.9
--- NOTE | 2022-04-20 18:01 | Electrocardiogram Report ---
Test Reason : Blood Pressure : / mmHG Vent. Rate : 080 BPM Atrial Rate : 080 BPM P-R Int : 158 ms QRS Dur : 096 ms QT Int : 370 ms P-R-T Axes : 079 -73 070 degrees QTc Int : 426 ms Normal sinus rhythm Possible Left atrial enlargement Incomplete right bundle branch block Left anterior fascicular block Nonspecific T wave abnormality Abnormal ECG When compared with ECG of 31-MAY-2021 11:34, Premature supraventricular complexes are no longer Present Confirmed by Freddie Vyas ([id number]) on 04/20/2022 6:00:28 PM Referred By: Confirmed By:Benton Vyas
--- NOTE | 2022-04-20 18:04 | Electrocardiogram Report ---
Test Reason : Blood Pressure : / mmHG Vent. Rate : 072 BPM Atrial Rate : 072 BPM P-R Int : 164 ms QRS Dur : 100 ms QT Int : 392 ms P-R-T Axes : 075 -62 067 degrees QTc Int : 429 ms Normal sinus rhythm Incomplete right bundle branch block Left anterior fascicular block Abnormal ECG When compared with ECG of 20-APR-2022 12:32, (unconfirmed) No significant change was found Confirmed by Freddie Vyas ([id number]) on 04/20/2022 6:03:26 PM Referred By: REFERRED SELF Confirmed By:Benton Vyas
[2022-04-20] MEDS ORDERED: MoRPHine SULFATE 2 MG/ML CARP IV STA (18:24)
[2022-04-20] MEDS ORDERED: ACETAMINOPHEN 325 MG TAB PO STA (18:52)
[2022-04-20] MEDS ORDERED: ENOXAPARIN INJ 30 MG/0.3 ML SYR SQ SCH (22:00)
[2022-04-21] MEDS ORDERED: SODIUM CHLORIDE 0.9% 1000ML 1,000 ML IV SCH (02:01)
--- NOTE | 2022-04-21 02:03 | Communication Note ---
Date of Service: April 21, 2022 Notified by RN at 1:46 AM that patient had unwitnessed fall in bathroom. Upon my arrival to the room, patient was found seated, propped up against bathroom wall on the floor. Vitals: pulse 57, BP 70/39, pulse ox 97% on RA Patient states that she went to the bathroom, stood up and had acute onset of dizziness causing her to fall to the floor. It is believed that she hit her head with unknown LOC. Patient denies CRUZ at this time. She does report persistent dizziness. Patient questions if this could be attributed to receiving nitro paste in the ER today as nitro in the past has caused hypotension and dizziness. Patient denies neck pain. She was assisted to bed by nursing staff. Patient w/o cervical spinous process tenderness to palpation. Heart regular rate and rhythm. + murmur. Lungs CTAB. No tenderness to palpation in b/l shoulders, elbows, hips, or knees. 5/5 strength to BLE with hip flexion. EKG completed at bedside -- NSR, no acute ST changes STAT head CT ordered along with labs including repeat troponin, CBC, and BMP. Bedside glucose 73 Per tele monitor, patient was sinus tach 105 for about 1 minute at 1:39 am. She then returned to NSR with rates in the 70s. Suspect patient with vasovagal episode after going to the bathroom vs orthostasis. BP quickly improved from 70s/30s to 120s/70s. I did start 1L NSS bolus but after quick improvement in BP, rate was changed to 125 ml/hr for 1L. --------- [facility] Patient: KACI BURKS (Female) : 40 Status: IP Date: 04/21/22 02:29 Room #: 281-2 History: PT. FELL UPSTAIRS IN ROOM; HAVING INCREASED CONFUSION AND WEAKNESS Slices: 58 Priors: Tech: Olivia Martinez @ [phone] Exams: CT HEAD Contrast: Accession Numbers: [id number] Referring Physician: REFERRED SELF Preliminary Findings Only See Final Report For Complete Findings CT HEAD: Prior 04/10/2016 No evidence of acute intracranial abnormality or skull fracture. Mild volume loss and small vessel disease Radiologist: Wilberto Faye M.D. Study ready at 02:31 and initial results transmitted at 02:41 Results also transmitted to [address] [place] [address] ([id number]) @ [phone] (Fax) *This report constitutes a preliminary interpretation only. Non-acute findings felt to be unrelated to the clinical presentation may not be discussed in this report. The study will be interpreted and a final report will be generated by the local Radiologist the following shift. To reach the [facility] radiology department call [phone]. If a discrepancy is found between the preliminary and final interpretations of this study, please notify us via our Client Portal at [email or web address] [email or web address]. You can also fax this report with a description of the discrepancy, or include the final report, to our daytime fax number [phone]. If faxing, please indicate the severity of discrepancy using one of the following categories: [ ] 1 - Agree/Informational [ ] 2 - Unlikely to Affect Management [ ] 3 - Possible Eventual Change of Management [ ] 4 - Probable Immediate Change of Management For all other patient related information, please fax us at [phone]. [id number] Resident Activity Tracking Resident Involvement: Resident Care Provided Care Provided: Adult [facility]
[2022-04-21 02:50] LABS: Basophils # (auto) 0.01 K/uL (0-0.2); Basophils % (auto) 0.2 %; Eosinophils # (auto) 0.12 K/uL (0-0.50); Eosinophils % (auto) 2.1 %; Hematocrit (blood only) 35.8 % (34.1-44.9); Hemoglobin 12.7 g/dl (12.0-16.0); Immature Granulocytes # (auto) 0.01 K/uL (0.00-0.02); Immature Granulocytes % (auto) 0.2 %; Lymphocytes # (auto) 2.12 K/uL (1.2-3.4); Lymphocytes % (auto) 37.3 %; Mean Corpuscular Hemoglobin 31.1 pg (25.0-34.0); Mean Corpuscular Hgb Conc 35.5 g/dL (32.0-36.0); Mean Corpuscular Volume 87.5 fL (80.0-100.0); Mean Platelet Volume 9.2 fL (9.4-12.3); Monocytes # (auto) 0.65 K/uL (0.24-0.82); Monocytes % (auto) 11.4 %; Neutrophils # (auto) 2.77 K/uL (1.4-6.5); Neutrophils % (auto) 48.8 %; Platelet Count 233 K/uL (130-400); RDW Coefficient of Variation 11.9 % (11.5-14.5); RDW Standard Deviation 38.4 fL (36.4-46.3); Red Blood Count 4.09 M/uL (3.93-5.22); White Blood Count 5.68 K/ul (4.8-10.8)
[2022-04-21 03:19] LABS: BUN Creatinine Ratio 20.7 (10-20); Calcium 8.4 mg/dl (8.5-10.1); Creatinine Clr Calc Pharmacy 37.9 ml/min; Est GFR (African American) 67.2 ml/min; Potassium 3.5 mmol/L (3.5-5.1)
[2022-04-21] MEDS: SODIUM CHLORIDE 0.9% 1000ML 1,000 ML IV SCH ×2 (04:00→13:01)
[2022-04-21] MEDS ORDERED: LEVOTHYROXINE SODIUM 75 MCG TABLET PO SCH (06:30)
--- NOTE | 2022-04-21 07:28 | CT Scan Report ---
HEAD CT NONCONTRAST CT DOSE: 537.48 mGy.cm HISTORY: Weakness. Confusion. fall TECHNIQUE: Multiaxial CT images of the head were performed without the use of intravenous contrast. A utomated exposure control was utilized for this study. A dose lowering technique was utilized adheri ng to the principles of ALARA. Comparison: Head CT 04/10/2016. Findings: The paranasal sinuses and mastoid air cells are clear. The calvarium and skull base are int act. There is no mass, hematoma, midline shift, acute infarct. White matter hypodensity is nonspecifi c but suggestive of microvascular ischemic change. The ventricles and sulci demonstrate mild age-rela shane involutional changes. Impression: No acute intracranial abnormality. Atrophy and microvascular ischemic changes. ACT 112: Negative or not required by law. Electronically signed by: Fritz Kent M.D. 04/21/2022 7:27 AM
--- NOTE | 2022-04-21 08:53 | Electrocardiogram Report ---
Test Reason : Blood Pressure : / mmHG Vent. Rate : 061 BPM Atrial Rate : 061 BPM P-R Int : 166 ms QRS Dur : 094 ms QT Int : 444 ms P-R-T Axes : 073 -66 023 degrees QTc Int : 446 ms Normal sinus rhythm Left anterior fascicular block Nonspecific T wave abnormality Abnormal ECG When compared with ECG of 20-APR-2022 17:17, (unconfirmed) Incomplete right bundle branch block is no longer Present Confirmed by Freddie Vyas ([id number]) on 04/21/2022 8:52:54 AM Referred By: REFERRED SELF Confirmed By:Benton Vyas
[2022-04-21 08:55] LABS: D Dimer 770 ug/L FEU (0-500)
--- NOTE | 2022-04-21 08:55 | Electrocardiogram Report ---
Test Reason : Blood Pressure : / mmHG Vent. Rate : 074 BPM Atrial Rate : 074 BPM P-R Int : 160 ms QRS Dur : 092 ms QT Int : 398 ms P-R-T Axes : 076 -62 068 degrees QTc Int : 441 ms Normal sinus rhythm Possible Left atrial enlargement Left axis deviation Incomplete right bundle branch block Nonspecific T wave abnormality Abnormal ECG When compared with ECG of 20-APR-2022 13:54, No significant change was found Confirmed by Freddie Vyas ([id number]) on 04/21/2022 8:55:07 AM Referred By: REFERRED SELF Confirmed By:Benton Vyas
[2022-04-21] MEDS ORDERED: LOSARTAN POTASSIUM 50 MG TAB PO SCH (09:00)
[2022-04-21] MEDS ORDERED: hydroCHLOROthiazide 25 MG TAB PO SCH (09:00)
[2022-04-21] MEDS ORDERED: PRAVASTATIN SOD 10 MG TAB PO SCH (09:00)
[2022-04-21] MEDS ORDERED: ASPIRIN 81 MG ECTAB PO SCH (09:00)
[2022-04-21] MEDS ORDERED: EZETIMIBE 10 MG TABLET PO SCH (09:00)
[2022-04-21] MEDS ORDERED: OPTIRAY 300 500mL IV ONE (11:05)
--- NOTE | 2022-04-21 11:15 | XRay Report ---
XR shoulder RT min 2V routine HISTORY: 82 years-old Female fall, shoulder pain acute right shoulder pain status post fall COMPARISON: CTA chest of same day TECHNIQUE: 2 views of the right shoulder FINDINGS: Moderate glenohumeral and AC joint osteoarthritis. No acute fracture, dislocation or opaque foreign b jenni in a fight. The imaged lung ruiz appear clear. IMPRESSION: Moderate osteoarthritis without acute fracture or dislocation. ACT 112: Negative or not required by law. The above report was generated using voice recognition software. It may contain grammatical, syntax o r spelling errors. Electronically signed by: Ap Reyes M.D. 04/21/2022 11:14 AM
--- NOTE | 2022-04-21 11:15 | XCELERA ---
[id number]}___[id number]
--- NOTE | 2022-04-21 11:29 | CT Scan Report ---
CT angio chest PE protocol CT DOSE: 283.95 mGycm HISTORY: 82 years-old Female with PE. Acute shortness of breath with right-sided shoulder pain TECHNIQUE: Multiple CTA images of the chest were obtained after the intravenous administration of 111 ml Optiray. Coronal and sagittal MIPS were obtained from the axial data set and were submitted for review. All measurements were obtained according to NASCET criteria. A dose lowering technique was u tilized adhering to the principles of ALARA. COMPARISON: Right shoulder radiographs of same day, CTA chest 01/28/2016 FINDINGS: CTA: Pectus excavatum with moderate cardiomegaly. No pericardial effusion. Extensive coronary artery calci fications. No thoracic aortic aneurysm or dissection. Patency of the imaged great vessels. Subsegment al pulmonary arterial branches are not well evaluated secondary to contrast bolus timing. No pulmonar y emboli are identified. CT CHEST: No thyroid nodule or pathologically enlarged lymph nodes are identified. Right hilar lymph nodes rose ure up to 9 mm, favored to be physiologic. No pneumothorax, pleural effusion or overt pulmonary edema . Mild dependent subsegmental bibasilar atelectasis. There are no suspicious pulmonary nodules or mas ses identified. The central airways are patent. 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 No acute process of the imaged upper abdomen. Degenerative changes of the shoulders and spine. Right glenohumeral joint effusion is likely on a deg enerative basis. Unchanged likely benign sclerotic focus of the T8 vertebral body. Degenerative vinson es of the spine and shoulders. No acute fracture identified. IMPRESSION: 1. No acute intrathoracic abnormality. 2. Cardiomegaly without pulmonary emboli identified. ACT 112: Negative or not required by law. The above report was generated using voice recognition software. It may contain grammatical, syntax o r spelling errors. Electronically signed by: Ap Reyes M.D. 04/21/2022 11:27 AM
--- NOTE | 2022-04-21 15:37 | Discharge Summary ---
Date of Service April 21, 2022 Admission HPI Per Admitting Provider Evangelina is an 82-year-old female who presents with 24 hours of chest pain which radiates into the left side and neck. Feels more of an ache compared to the jabbing pain she had with her prior cardiac pain requiring stenting. Endorses chest tightness for several months. Pain has been lasting 3 to 4 hours and is intermittent Evangelina reports has been having intermittent pain which goes from below the L breast, through chest, into the L shoulder and into both sides of her neck. BP is elevated during these episodes. Also gets lightheaded spells off and on for the last few weeks. Yesterday they were persistent through the day, somewhat improved with sitting and rest. [place] off balance and lightheaded, but no room spinning. +mild reduction in breathing tolerance to walking the last few months, walking a little slower but denies SoB. Her chest pain is not associated with SoB or sweating. Pain lasted for several hours yesterday from when she got up, through breakfast, and overall ~6am-mid afternoon. Rest improved the pain. Walking and exercise seemed to bring the pain out and make it worse. Dull achy pain, not sharp. NO recent illnesses COVID omicron booster 2 weeks ago No fevers, chills, or sweats. +fatigue after covid booster day or two after but other than that energy is OK and otherwise tolerated the vaccination. Took synthroid, BP meds, and water pill (hctz) and ASA today. Medical History: Reviewed Medications: Reviewed Surgical History: Reviewed Allergies: Reviewed Social History: No current or former tobacco, Etoh, MM, or rec drug use Code Status:Rocio Sandoval [phone] surrogate DM in an emergency. Full Code Principal Diagnosis Chest pain, suspected noncardiac Discharge Exam General: A&Ox3. NAD. Cooperative. HEENT: Atraumatic, normocephalic. Pulm: CTAB A&P. -wheezes, -rales, -rhonchi. Symmetrical chest rise. No increase in work of breathing. No respiratory distress. Cardiac: RRR, -mrg. Radial pulses intact and symmetrical. Abdominal: Nontender, nondistended, soft. BS present. Extremities: Shoulder flexion, internal rotation, external rotation, elbow flexion/extension intact with 5/5 strength bilaterally, clerk operator strength 5/5 bilaterally, ankle dorsiflexion/plantarflexion 5/5 bilaterally. Right shoulder with tenderness to palpation overlying anterior shoulder. No crepitus/contusion Discharge Data Allergies Allergy/AdvReac Type Severity Reaction Status Date / Time doxycycline Allergy Unknown rash Verified 12/30/21 16:19 metoprolol Allergy Unknown severe Verified 12/30/21 16:19 rash over entire body atorvastatin AdvReac Unknown causes Verified 12/30/21 16:19 sereve weakness and chest pain, do not give nitroglycerin AdvReac Unknown severe Verified 12/30/21 16:19 drop in blood pressure rosuvastatin AdvReac Unknown causes Verified 12/30/21 16:19 sereve weakness and chest pain, do not give Consultations 04/20/22 18:05 ED Decision to Admit Stat Ordered Studies 04/21/22 02:[address] [CT head/brain wo con] Urgent 04/21/22 10:13 CT angio chest PE protocol Stat Hospital Course (1) Chest pain: To do as outpatient: 1. Routine PCP follow-up 2. Routine cardiology follow-up, titration of antihypertensives as needed with outpatient BP checks. 150s systolic at discharge. Patient did have hypotensive episode while on Nitropaste during cardiac evaluation. Chest pain radiating to left shoulder; CAD with history of PCI to LAD EKG: NSR, no ST elevation/depressions, T wave inversions in V1, V3, aVL,II -No leukocytosis -Hemoglobin 14.9 -Sodium 132 -Potassium 3.8 -Magnesium pending -High-sensitivity troponin 3.7, repeat pending -CXR: No acute process Continue losartan 50 mg daily Stress echo 05/2021: Negative No beta-frances due to development of rash on beta-frances/Lopressor - Exercise/exertion induced sx with strong history, but reassured given EKG and negative trop >12 hours after sx onset Overnight high-sensitivity troponin series negative. Echo without wall motion abnormality. Patient did have an episode of near syncope and lightheadedness/dizziness during admission after standing while on Nitropatch, suspect vasovagal versus hypotension induced. D-dimer was elevated, given chest pain and overnight presyncopal event CTA was obtained which did not show evidence of PE or acute abnormality Suspect noncardiac pain, rule out above reassuring. Discharged to PCP/ca rdiology follow-up, Voltaren for MSK pain Right shoulder pain After a fall from standing. X-ray without evidence of fracture. Voltaren for MSK pain, PCP follow-up. Neurovascularly intact with good strength on discharge exam. Hypertension Continue losartan, not on beta-frances due to allergy as noted HLD Continue statin. Has not tolerated statins higher than pravastatin 10, adjunct with Zetia. Patient has declined PCSK9. Intolerant to multiple other statins. Hypothyroidism Continue Synthroid 75 mcg daily TSH wnl (2) CAD in [place] artery: (3) GERD without esophagitis: (4) Hyperlipidemia: (5) Hypothyroidism: Total Time Total Time Spent Total Time Spent (In Minutes): Time spend day of discharge 60 minutes including direct patient care, documentation, review of labs and images, and coordination of care. Discharge Plan Discharge Items Patient Disposition: Home - Self-Care Reason For Visit: CHEST PAIN Discharge Diagnosis: Chest pain, suspect noncardiac Activity: Resume your previous activity Non-emergency contact: Primary Care Provider and Hide And Skin Classer Call non-emergency contact if: you have any medication questions and your symptoms worsen Follow-up/Referrals: Yohannes Bishop MD [Physician] - Joyce Lester MD [Primary Care Provider] - Diet: Heart Healthy Addtl Attending Provider Instructions: You were seen during admission for chest pain. Due to your heart history and exercise association you were observed for a cardiac evaluation. Your EKG did not show any acute ST segment changes indicative of heart attack. High sensitive troponins, markers of heart damage/heart attack, or negative on an overnight series. An ultrasound of your heart did not show any acute abnormalities. You did have a slightly high D-dimer, while this was normal adjusted for age due to your chest pain and presyncopal episode a CAT scan of your chest was obtained. This did not show any evidence of acute abnormality and did not show any evidence of blood clots in your lung. A x-ray of your shoulder did not show any fracture. Your chest pain was suspected to be noncardiac, you have been prescribed Voltaren for your shoulder and for rib pain as below. Please continue follow-up with your PCP and net web application developer. Please discuss your exercise exertion symptoms, but negative cardiac evaluation during hospitalization, with your net web application developer at your next appointment; this appointment is being scheduled for you. If you develop any new or worsening symptoms including fever, chills, sweats, chest pain, chest pressure, difficulty breathing, uncontrolled nausea/vomiting, rash, wheezing, passing out or nearly passing out, bleeding, black/bloody bowel movements, or other new or concerning symptoms please call your primary care physician, or call 911 for re-evaluation in the emergency department if you are very concerned. Pending Studies at Discharge: No Stand-Alone Forms: [facility] [employer], Smoking Cessation Medications and DC Order Prescriptions: New diclofenac sodium 1 % gel 4 g topical QID PRN (Reason: pain) Qty: 100 0RF Rx Instructions: Apply to shoulder/rib for pain 4x daily for pain as needed Continued hydrochlorothiazide 25 mg tablet 12.5 mg PO DAILY Qty: 90 3RF ezetimibe [Zetia] 10 mg tablet 10 mg PO DAILY Qty: 90 3RF pravastatin 10 mg tablet 10 mg PO DAILY Qty: 90 3RF calcium-vitamin D3-vitamin K [Viactiv] 650 mg-12.5 mcg-40 mcg tablet,chewable 1 tab PO DAILY ascorbic acid (vitamin C) 500 mg capsule 500 mg PO DAILY aspirin 81 mg tablet 81 mg PO DAILY losartan 50 mg tablet 50 mg PO DAILY Qty: 90 3RF levothyroxine 75 mcg tablet 75 mcg PO QAM Qty: 90 3RF Discharge Orders: Discharge Order (Routine); Ordered 04/21/22 Ordered By: Andrea Hernandez Admission Data Admit Date/Time: 04/20/22 16:32 Attending Provider: Andrea Hernandez Admit Provider: Andrea Hernandez Primary Care Provider: Joyce Lester Other Providers: Andrea Hernandez Coding Level of Care Code D/C DAY MANAGEMENT >30 MINS Diagnoses Chest pain R07.9 CAD in [place] artery I25.10 GERD without esophagitis K21.9 Hyperlipidemia E78.5 Hypothyroidism E03.9
[2022-04-21] MEDS ORDERED: DICLOFENAC SOD 1% GEL 100 GM TUBE EXT SCH (17:00)
== END 2022-04-21 17:47 | disposition home or self-care (01) ==
LOC: 2N 12:06 → ED 12:06 → 2N 20:58
DX: Z82.49 Family history of ischemic heart disease and other diseases of the circulatory system; I25.10 Atherosclerotic heart disease of native coronary artery without angina pectoris; R07.89 Other chest pain; E78.5 Hyperlipidemia, unspecified; Z79.890 Hormone replacement therapy; I10 Essential (primary) hypertension; Z79.899 Other long term (current) drug therapy; E03.9 Hypothyroidism, unspecified; Z79.82 Long term (current) use of aspirin; Z88.8 Allergy status to other drugs, medicaments and biological substances

== ENCOUNTER 2022-06-09 11:15 | Observation (INO) ==
[2022-06-09] MEDS ORDERED: ASPIRIN CHEW 324 MG PO STA (11:51)
[2022-06-09] MEDS ORDERED: fentaNYL citrate 100 MCG/2 ML VIAL IV STA (11:51)
--- NOTE | 2022-06-09 11:54 | Emergency Department Note ---
Impression & Plan Chest pain ED Provider Note HISTORY OF PRESENT ILLNESS: Patient is a 82-year-old female presenting with chest pain or shortness of breath. Patient reports she has been having recurrent episodes of substernal chest pressure that radiates up into her left neck and into her left shoulder. She states that she is scheduled for an outpatient stress test on June 18. She states that today while out shopping she had an episode of the substernal chest pain and " intense shortness of breath." States the pain and shortness of breath lasted for around 30 minutes prior to relieving. Denies any relieving or exacerbating factors. Describes the chest pain as a pressure sensation. Denies any recent fever cough. She has a history of a stent to her LAD. Reports that over the last month she has been having recurrent episodes of the chest pressure with associated shortness of breath. Denies any DVT or PE history. She is on 81 mg aspirin daily. Patient also complaining of profound lightheadedness mostly when she stands up. Reports she feels like she is going to pass out most easily with standing. ROS: Constitutional: No fever, chills, or weakness +lightheadedness Skin: No rash or diaphoresis HENT: No headaches or congestion Eyes: No vision changes Cardio: No palpitations or leg swelling +chest pain Respiratory: No cough, wheezing +shortness of breath GI: No nausea, vomiting, diarrhea, constipation : No dysuria, polyuria MSK: No joint or back pain Neuro: No loss of sensation, confusion, focal deficits, numbness, tingling Psychiatric: No mood changes PHYSICAL EXAM: Constitutional: Patient appears in no acute distress. HENT: Head: Normocephalic and atraumatic. Eyes: EOMI, PERRL Mouth/Throat: Mucous membranes moist. Neck: Trachea midline. Neck supple. Cardiovascular: RRR, No murmurs, rubs or gallops. Intact distal pulses. Pulmonary/Chest: No respiratory distress. Breath sounds clear and equal bilaterally. No wheezes or rales. Abdominal: BS +. Abdomen soft, no tenderness, rebound or guarding. Back: No midline spinal tenderness, no paraspinal tenderness, no CVA tenderness. Musculoskeletal: No edema, tenderness or deformity noted. Skin: Warm and dry. No rash, erythema, pallor or cyanosis Psychiatric: Appropriate mood and affect for situation. Neurological: Alert and keenly responsive. CN II-XII grossly intact, moving all extremities equally and fully. MDM: - Vitals signs showed hypertension - EKG negative for acute ischemic changes. Shows persistent T-wave inversions in V1 and V2. - Laboratory workup showed normal WBC; stable electrolytes; normal troponin - CXR showed cardiomegaly. - Heart score 5 (History +1 moderately suspicious; EKG +0; Age +2; Risk factors +2; Initial troponin +0), amounting to a moderate score. 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 Bishop. Recommended admission for inpatient workup and stress testing. - [facility] hospitalist, Dr. Hernandez, consulted for admission. - Patient admitted to [facility] hospitlaist service for further evaluation and management. ASSESSMENT AND PLAN: Diagnosis: chest pain Plan: admit Past Med/Surg History Medical History Arthritis CAD in [place] artery Essential (primary) hypertension Fracture of right ankle, lateral malleolus GERD without esophagitis Gout Hyperlipidemia Hypothyroidism Nondisplaced fracture of fifth right metatarsal bone Nondisplaced fracture of left radial styloid process, initialencounter for closed fracture Syncope Varicose vein of leg Surgical History H/O colonoscopy H/O endoscopy H/O partial thyroidectomy H/O tubal ligation Hx of cholecystectomy Hx of heart artery stent Hx of tonsillectomy Family History Brother Pancreatic cancer Prostate cancer Diabetes Gallbladder disease Cardiac disorder Hypertension Lymphedema Colon cancer FHx: kidney cancer Myocardial infarction FHx: allergies Mother Pancreatic cancer Cancer Aunt Colon cancer Deafness Son FHx: kidney cancer Father Myocardial infarction Grandmother Myocardial infarction Grandfather Stroke Other Heart disease No family history of bleeding disorder Denies family history of Ovarian cancer Adverse anesthesia outcome Breast cancer Asthma Social History Smoking Status: Never smoker Second Hand Exposure: No; Hx Alcohol Use: No Hx Substance Use: No Preferred Language: Albanian Communication Ability: Effective Visual Impairment: No Limitations Hearing Ability: Use of Hearing Aid Roll Examiner Required: No Beliefs That Will Affect Care: None marital status: Current Living Situation: Spouse current occupational status: retired 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, 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 Feels Safe at Home: Yes Childhood Exposure to Second-Hand Smoke: No Diet Comment: no red meat Dental Care, Regularly: Yes Physical Activity Frequency: Daily Seatbelt Use: always Sunscreen Use: Yes Assistive Devices: None Allergies Allergies Allergy/AdvReac Type Severity Reaction Status Date / Time doxycycline Allergy Unknown rash Verified 05/28/22 13:13 metoprolol Allergy Unknown severe Verified 05/28/22 13:13 rash over entire body atorvastatin AdvReac Unknown causes Verified 05/28/22 13:13 sereve weakness and chest pain, do not give nitroglycerin AdvReac Unknown severe Verified 05/28/22 13:13 drop in blood pressure rosuvastatin AdvReac Unknown causes Verified 05/28/22 13:13 sereve weakness and chest pain, do not give Home Meds Home Medications Medication Instructions Recorded Confirmed ascorbic acid (vitamin C) 500 mg 500 mg PO DAILY 02/27/19 05/28/22 capsule aspirin 81 mg tablet 81 mg PO DAILY 02/27/19 05/28/22 calcium 650 mg-vitamin D3 12.5 1 tab PO DAILY 02/27/19 05/28/22 mcg-vitamin K 40 mcg chewable tablet (Viactiv) Previous Rx's Medication Instructions Recorded hydrochlorothiazide 25 mg tablet 12.5 mg PO DAILY #90 tabs 01/14/21 ezetimibe 10 mg tablet (Zetia) 10 mg PO DAILY #90 tabs 10/02/21 levothyroxine 75 mcg tablet 75 mcg PO QAM #90 tabs 11/07/21 losartan 50 mg tablet 50 mg PO DAILY #90 tabs 12/12/21 pravastatin 10 mg tablet 10 mg PO DAILY #90 tabs 03/16/22 Results & Data (ED) Vital Signs Vital Signs - 24 hr 06/09/22 11:18 06/09/22 11:34 06/09/22 11:38 Temperature 36.7 C Temperature Source Temporal Artery Scan Pulse Rate 84 Pulse Rate [Apical] 73 Respiratory Rate 20 21 Respiratory Effort / Characteristics Non-Labored Short of Breath Respiratory Depth Normal Blood Pressure 186/84 H Blood Pressure [Left Arm] 193/106 H Blood Pressure Mean 118 Blood Pressure Mean [Left Arm] 135 Blood Pressure Position Sitting Pulse Oximetry 98 95 95 Oxygen Delivery Method Room Air Room Air Room Air Oxygen Flow Rate 0 Sepsis Recent Fever Within 48 Hours No Sepsis New/Unexplained Change in Mental Status N/A Sepsis Action Taken by Nursing No Action Required 06/09/22 11:51 06/09/22 13:00 Temperature Temperature Source Pulse Rate Pulse Rate [Apical] 78 Respiratory Rate 17 Respiratory Effort / Characteristics Non-Labored Spontaneous Respiratory Depth Normal Blood Pressure Blood Pressure [Left Arm] 190/78 H Blood Pressure Mean Blood Pressure Mean [Left Arm] 115 Blood Pressure Position Pulse Oximetry 95 99 Oxygen Delivery Method Room Air Room Air Oxygen Flow Rate Sepsis Recent Fever Within 48 Hours Sepsis New/Unexplained Change in Mental Status Sepsis Action Taken by Nursing Laboratory Data Result diagrams: 06/09/22 11:30 06/09/22 11:30 Lab Results 06/09/22 06/09/22 06/09/22 Range/Units 11:30 11:30 12:45 WBC 5.24 (4.8-10.8) K/ul RBC 4.51 (3.93-5.22) M/uL Hgb 14.3 (12.0-16.0) g/dl Hct 40.4 (34.1-44.9) % MCV 89.6 (80.0-100.0) fL MCH 31.7 (25.0-34.0) pg MCHC 35.4 (32.0-36.0) g/dL RDW Std Deviation 39.0 (36.4-46.3) fL RDW Coeff of Mary 12.1 (11.5-14.5) % Plt Count 241 (130-400) K/uL MPV 10.3 (9.4-12.3) fL Immature Gran % (Auto) 0.2 % Neut % (Auto) 50.9 % Lymph % (Auto) 37.8 % Sanders % (Auto) 8.8 % Eos % (Auto) 2.1 % Baso % (Auto) 0.2 % Neut # (Auto) 2.67 (1.4-6.5) K/uL Lymph # (Auto) 1.98 (1.2-3.4) K/uL Sanders # (Auto) 0.46 (0.24-0.82) K/uL Eos # (Auto) 0.11 (0-0.50) K/uL Baso # (Auto) 0.01 (0-0.2) K/uL Immature Gran # (Auto) 0.01 (0.00-0.02) K/uL Sodium 138 (136-145) mmol/L Potassium 3.9 (3.5-5.1) mmol/L Chloride 102 (98-107) mmol/L Carbon Dioxide 30 (21-32) mmol/L Anion Gap 6 (3-11) BUN 17 (6-23) mg/dl Creatinine 0.87 (0.6-1.2) mg/dl Est Cr Clr Drug Dosing 41.2 ml/min Est GFR ( Amer) 71.9 ml/min Est GFR (Non-Af Amer) 62.0 ml/min BUN/Creatinine Ratio 19.5 (10-20) Glucose 86 (70-99(Fasting)) mg/dl Calcium 9.7 (8.5-10.1) mg/dl Magnesium 2.1 (1.7-2.4) mg/dl Total Bilirubin 0.8 (0.2-1.0) mg/dl AST 23 (13-39) U/L ALT 15 (7-52) U/L Alkaline Phosphatase 63 (34-104) U/L Troponin I High Sens 4.9 (0-14) pg/ml Total Protein 7.5 (6.0-8.3) gm/dl Albumin 4.7 (3.4-5.0) gm/dl Globulin 2.8 (2.5-4.0) gm/dl Albumin/Globulin Ratio 1.7 (0.9-2) Lipase 48 (11-82) U/L SARS-CoV-2, RNA, NAAT NEGATIVE (NEGATIVE) 06/09/22 Range/Units 14:16 WBC (4.8-10.8) K/ul RBC (3.93-5.22) M/uL Hgb (12.0-16.0) g/dl Hct (34.1-44.9) % MCV (80.0-100.0) fL MCH (25.0-34.0) pg MCHC (32.0-36.0) g/dL RDW Std Deviation (36.4-46.3) fL RDW Coeff of Mary (11.5-14.5) % Plt Count (130-400) K/uL MPV (9.4-12.3) fL Immature Gran % (Auto) % Neut % (Auto) % Lymph % (Auto) % Sanders % (Auto) % Eos % (Auto) % Baso % (Auto) % Neut # (Auto) (1.4-6.5) K/uL Lymph # (Auto) (1.2-3.4) K/uL Sanders # (Auto) (0.24-0.82) K/uL Eos # (Auto) (0-0.50) K/uL Baso # (Auto) (0-0.2) K/uL Immature Gran # (Auto) (0.00-0.02) K/uL Sodium (136-145) mmol/L Potassium (3.5-5.1) mmol/L Chloride (98-107) mmol/L Carbon Dioxide (21-32) mmol/L Anion Gap (3-11) BUN (6-23) mg/dl Creatinine (0.6-1.2) mg/dl Est Cr Clr Drug Dosing ml/min Est GFR ( Amer) ml/min Est GFR (Non-Af Amer) ml/min BUN/Creatinine Ratio (10-20) Glucose (70-99(Fasting)) mg/dl Calcium (8.5-10.1) mg/dl Magnesium (1.7-2.4) mg/dl Total Bilirubin (0.2-1.0) mg/dl AST (13-39) U/L ALT (7-52) U/L Alkaline Phosphatase (34-104) U/L Troponin I High Sens 5.0 (0-14) pg/ml Total Protein (6.0-8.3) gm/dl Albumin (3.4-5.0) gm/dl Globulin (2.5-4.0) gm/dl Albumin/Globulin Ratio (0.9-2) Lipase (11-82) U/L SARS-CoV-2, RNA, NAAT (NEGATIVE) Administered Medications Discontinued Medications Aspirin (Aspirin Chew 324 Mg) 324 mg PO NOW STA Stop: 06/09/22 11:52 Last Admin: 06/09/22 12:46 Dose: 324 mg Documented By: Fentanyl Citrate (Fentanyl Citrate 100 Mcg/2 Ml Vial) 25 mcg IV NOW STA Stop: 06/09/22 11:52 Last Admin: 06/09/22 12:47 Dose: Not Given Documented By: Imaging Data Radiologist's Impression: Chest X-Ray 06/09/22 11:51 SINGLE VIEW CHEST CLINICAL HISTORY: Atypical chest pain. FINDINGS: 2 AP, portable, upright chest radiographs are compared to study dated 04/20/2022 and correlated with chest CT dated 04/21/2022. The heart is enlarged noting atherosclerotic calcification of the thoracic aorta. The pulmonary vasculature is noncongested. Chronic interstitial thickening is similar to previous. The lungs and pleural spaces are clear noting bibasilar scarring/atelectasis. No pneumothorax is seen. The skeletal structures are osteopenic. The bony thorax is grossly intact. Cholecystectomy clips are seen in the right upper quadrant. IMPRESSION: Cardiomegaly with no active disease in the chest. ACT 112: Negative or not required by law. Electronically signed by: Christian Sorensen M.D. 06/09/2022 12:19 PM Discharge Plan Visit Data Chief Complaint: Chest Pain Stated Complaint: CHEST PAIN, PAIN GOING UP NECK ED Provider: Nilda Dela Cruz Discharge Problem: Chest pain Patient Disposition: Admitted As Inpatient Forms Stand Alone Forms: My [facility] Prescriptions Prescriptions: No Action hydrochlorothiazide 25 mg tablet 12.5 mg PO DAILY Qty: 90 3RF ezetimibe [Zetia] 10 mg tablet 10 mg PO DAILY Qty: 90 3RF pravastatin 10 mg tablet 10 mg PO DAILY Qty: 90 3RF calcium-vitamin D3-vitamin K [Viactiv] 650 mg-12.5 mcg-40 mcg tablet,chewable 1 tab PO DAILY ascorbic acid (vitamin C) 500 mg capsule 500 mg PO DAILY aspirin 81 mg tablet 81 mg PO DAILY losartan 50 mg tablet 50 mg PO DAILY Qty: 90 3RF levothyroxine 75 mcg tablet 75 mcg PO QAM Qty: 90 3RF Referrals Referrals: Joyce Lester MD [Primary Care Provider] -
[2022-06-09 12:05] LABS: Basophils # (auto) 0.01 K/uL (0-0.2); Basophils % (auto) 0.2 %; Eosinophils # (auto) 0.11 K/uL (0-0.50); Eosinophils % (auto) 2.1 %; Hematocrit (blood only) 40.4 % (34.1-44.9); Hemoglobin 14.3 g/dl (12.0-16.0); Immature Granulocytes # (auto) 0.01 K/uL (0.00-0.02); Immature Granulocytes % (auto) 0.2 %; Lymphocytes # (auto) 1.98 K/uL (1.2-3.4); Lymphocytes % (auto) 37.8 %; Mean Corpuscular Hemoglobin 31.7 pg (25.0-34.0); Mean Corpuscular Hgb Conc 35.4 g/dL (32.0-36.0); Mean Corpuscular Volume 89.6 fL (80.0-100.0); Mean Platelet Volume 10.3 fL (9.4-12.3); Monocytes # (auto) 0.46 K/uL (0.24-0.82); Monocytes % (auto) 8.8 %; Neutrophils # (auto) 2.67 K/uL (1.4-6.5); Neutrophils % (auto) 50.9 %; Platelet Count 241 K/uL (130-400); RDW Coefficient of Variation 12.1 % (11.5-14.5); Red Blood Count 4.51 M/uL (3.93-5.22); White Blood Count 5.24 K/ul (4.8-10.8)
--- NOTE | 2022-06-09 12:21 | XRay Report ---
SINGLE VIEW CHEST CLINICAL HISTORY: Atypical chest pain. FINDINGS: 2 AP, portable, upright chest radiographs are compared to study dated 04/20/2022 and correla shane with chest CT dated 04/21/2022. The heart is enlarged noting atherosclerotic calcification of the thoracic aorta. The pulmonary vasculature is noncongested. Chronic interstitial thickening is similar to previous. The lungs and pleural spaces are clear noting bibasilar scarring/atelectasis. No pneumo thorax is seen. The skeletal structures are osteopenic. The bony thorax is grossly intact. Cholecyste ctomy clips are seen in the right upper quadrant. IMPRESSION: Cardiomegaly with no active disease in the chest. ACT 112: Negative or not required by law. Electronically signed by: Christian Sorensen M.D. 06/09/2022 12:19 PM
[2022-06-09 12:29] LABS: Albumin Globulin Ratio 1.7 (0.9-2); Albumin Level 4.7 gm/dl (3.4-5.0); BUN Creatinine Ratio 19.5 (10-20); Bilirubin,Total 0.8 mg/dl (0.2-1.0); Calcium 9.7 mg/dl (8.5-10.1); Creatinine Clr Calc Pharmacy 41.2 ml/min; Est GFR (African American) 71.9 ml/min; Globulin 2.8 gm/dl (2.5-4.0); Magnesium 2.1 mg/dl (1.7-2.4); Potassium 3.9 mmol/L (3.5-5.1); Total Protein 7.5 gm/dl (6.0-8.3)
[2022-06-09 12:33] LABS: Troponin I High Sensitivity 4.9 pg/ml (0-14)
--- NOTE | 2022-06-09 14:59 | History & Physical Report ---
Date of Service June 09, 2022 Assessment & Plan (1) Chest pain: Plan: - Chest pain with severe SOB x 30 minutes with minimal exertion today, self resolved w/o resolution. - Did have recurrence of wide spread chest pain/pressure for 5 minutes in ED which again self resolved. - Initial trop 4.9, repeat 5.0. - EKG with chronic T wave inversions in V1, V2; previously seen. - Cardiology consulted, plan for cardiac cath tomorrow AM. 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 - Continue losartan, pravastatin, Zetia, aspirin. (3) Hypertension: Plan: - Continue losartan, will add HCTZ back on given she is significantly hypertensive in ED and d/c'ing it has not helped with her lightheadedness. (4) Hypothyroidism: Plan: - Continue levothyroxine. Plan Assessment and plan discussed with my attending physician, Dr. Hernandez. Please refer to his addendum for further clarification and/or changes to plan. History of Present Illness Chief Complaint: chest pain Primary Care Provider: Joyce Lester MD Evangelina Sandoval is an 82-year-old female with past medical history significant for CAD with PCI to LAD in 2007, hypertension, hyperlipidemia, hypothyroidism who presents today with chest pain. She was walking at a leisurely pace through the grocery store at the time, but was not pushing the cart or lifting groceries. She was severely short of breath and felt she could not catch any air. She sat in her car but symptoms did not immediately resolve with rest, however did eventually go away on their own after about 30 minutes. She has history of multiple episodes of chest pain that tend to radiate into her left neck and left shoulder, most recently hospitalized for such 1 month ago with negative work-up. She states she has been having this chest pain near daily and that it always goes away on its own, typically it comes on at rest or with very light activity. She is scheduled for a stress test early next month due to the ongoing chest pain. Upon presentation to the ED, patient's blood pressure is elevated to 186/84, otherwise within normal limits and stable. Labs unremarkable, initial troponin 4.9, repeat 5.0. CXR shows cardiomegaly without active disease in chest. Allergies Allergy/AdvReac Type Severity Reaction Status Date / Time doxycycline Allergy Unknown rash Verified 05/28/22 13:13 metoprolol Allergy Unknown severe Verified 05/28/22 13:13 rash over entire body atorvastatin AdvReac Unknown causes Verified 05/28/22 13:13 sereve weakness and chest pain, do not give nitroglycerin AdvReac Unknown severe Verified 05/28/22 13:13 drop in blood pressure rosuvastatin AdvReac Unknown causes Verified 05/28/22 13:13 sereve weakness and chest pain, do not give Home Medications Medication Instructions Recorded Confirmed Type ascorbic acid (vitamin C) 500 mg 500 mg PO DAILY 02/27/19 06/09/22 History capsule aspirin 81 mg tablet 81 mg PO DAILY 02/27/19 06/09/22 History calcium 650 mg-vitamin D3 12.5 1 tab PO DAILY 02/27/19 06/09/22 History mcg-vitamin K 40 mcg chewable tablet (Viactiv) ezetimibe 10 mg tablet (Zetia) 10 mg PO DAILY #90 tabs 10/02/21 06/09/22 Rx levothyroxine 75 mcg tablet 75 mcg PO QAM #90 tabs 11/07/21 06/09/22 Rx losartan 50 mg tablet 50 mg PO DAILY #90 tabs 12/12/21 06/09/22 Rx pravastatin 10 mg tablet 10 mg PO DAILY #90 tabs 03/16/22 06/09/22 Rx Past Med/Surg History Medical History Arthritis 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 Essential (primary) hypertension Fracture of right ankle, lateral malleolus GERD without esophagitis Gout Hyperlipidemia Hypothyroidism Nondisplaced fracture of fifth right metatarsal bone Nondisplaced fracture of left radial styloid process, initialencounter for eros sed fracture Syncope Varicose vein of leg Surgical History H/O colonoscopy H/O endoscopy H/O partial thyroidectomy H/O tubal ligation Hx of cholecystectomy Hx of heart artery stent Hx of tonsillectomy Family History Brother Pancreatic cancer Prostate cancer Diabetes Gallbladder disease Cardiac disorder Hypertension Lymphedema Colon cancer FHx: kidney cancer Myocardial infarction FHx: allergies Mother Pancreatic cancer Cancer Aunt Colon cancer Deafness Son FHx: kidney cancer Father Myocardial infarction Grandmother Myocardial infarction Grandfather Stroke Other Heart disease No family history of bleeding disorder Denies family history of Ovarian cancer Adverse anesthesia outcome Breast cancer Asthma Social History Smoking Status: Never smoker Second Hand Exposure: No; Hx Alcohol Use: No Hx Substance Use: No Preferred Language: Mauritian Communication Ability: Effective Communication Ability Comment: glasses/EKWOK Visual Impairment: No Limitations Hearing Ability: Use of Hearing Aid Public Address Systems Mechanic Required: No Beliefs That Will Affect Care: None marital status: Current Living Situation: Spouse Current Living Situation Comment: House current occupational status: retired 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, 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 Feels Safe at Home: Yes Safety Concerns: Feels Safe At This Time Childhood Exposure to Second-Hand Smoke: No Diet Comment: no red meat Dental Care, Regularly: Yes Physical Activity Frequency: Daily Seatbelt Use: always Sunscreen Use: Yes Assistive Devices: None Review of Systems Review of Systems: Constitutional: No fever/chills, weakness, fatigue, myalgias, anorexia, night sweats Eyes: No diplopia, no worsening or blurred vision ENT: normal hearing, no trouble swallowing Respiratory: SOB x 30 minutes today with mild/no activity; No cough, sputum, no prior episodes of dyspnea at rest or on exertion Cardiovascular: central chest pressure + palpitations x 30 minutes today with minimal activity, self resolved on own, with recurrent 5 minute bout in ED, self resolved Abdomen: No pain, nausea, vomiting, diarrhea or constipation : Denies dysuria, hematuria, increased urgency/frequency, urinary retention Musculoskeletal: No joint pain, calf pain, swelling Neurologic: No weakness, numbness/tingling, or balance problems Psychiatric: No anxiety or depression Skin: No rash or itch Physical Exam Physical Exam: General: awake, alert, no apparent distress Head: Normocephalic, atraumatic ENT: PERRL, EOMI, no pharyngeal exudate, mucous membranes moist Chest: Clear to auscultation, on room air, no adventitious breath sounds Cardiac: Regular rate and rhythm, no murmur, no JVD, normal peripheral pulses, good capillary refill Abdominal: NABS x 4 quadrants, soft, nontender to palpation, no rebound, guarding or tenderness Extremities: Normal inspection, no peripheral edema or erythema, calfs nontender to palpation Psych: Normal mood and affect Neuro: AAO x 3, strength intact bilaterally and rated 5/5, no motor deficits, speech is clear, no peripheral sensory deficits Skin: no rash or erythema Results & Data Results & Data ([facility]) Vital Signs (Past 12 Hours) Vital Signs Temp Pulse Pulse Resp BP BP Pulse Ox 06/09/22 13:00 78 17 190/78 H 99 06/09/22 11:51 95 06/09/22 11:38 95 06/09/22 11:34 73 21 193/106 H 95 06/09/22 11:18 36.7 C 84 20 186/84 H 98 O2 Del Method O2 Flow Rate 06/09/22 13:00 Room Air 06/09/22 11:51 Room Air 06/09/22 11:38 Room Air 0 06/09/22 11:34 Room Air 06/09/22 11:18 Room Air Laboratory Results Lab Results 06/09/22 06/09/22 06/09/22 Range/Units 11:30 11:30 12:45 WBC 5.24 (4.8-10.8) K/ul RBC 4.51 (3.93-5.22) M/uL Hgb 14.3 (12.0-16.0) g/dl Hct 40.4 (34.1-44.9) % MCV 89.6 (80.0-100.0) fL MCH 31.7 (25.0-34.0) pg MCHC 35.4 (32.0-36.0) g/dL RDW Std Deviation 39.0 (36.4-46.3) fL RDW Coeff of Mary 12.1 (11.5-14.5) % Plt Count 241 (130-400) K/uL MPV 10.3 (9.4-12.3) fL Immature Gran % (Auto) 0.2 % Neut % (Auto) 50.9 % Lymph % (Auto) 37.8 % [place] % (Auto) 8.8 % Eos % (Auto) 2.1 % Baso % (Auto) 0.2 % Neut # (Auto) 2.67 (1.4-6.5) K/uL Lymph # (Auto) 1.98 (1.2-3.4) K/uL [place] # (Auto) 0.46 (0.24-0.82) K/uL Eos # (Auto) 0.11 (0-0.50) K/uL Baso # (Auto) 0.01 (0-0.2) K/uL Immature Gran # (Auto) 0.01 (0.00-0.02) K/uL Sodium 138 (136-145) mmol/L Potassium 3.9 (3.5-5.1) mmol/L Chloride 102 (98-107) mmol/L Carbon Dioxide 30 (21-32) mmol/L Anion Gap 6 (3-11) BUN 17 (6-23) mg/dl Creatinine 0.87 (0.6-1.2) mg/dl Est Cr Clr Drug Dosing 41.2 ml/min Est GFR ( Amer) 71.9 ml/min Est GFR (Non-Af Amer) 62.0 ml/min BUN/Creatinine Ratio 19.5 (10-20) Glucose 86 (70-99(Fasting)) mg/dl Calcium 9.7 (8.5-10.1) mg/dl Magnesium 2.1 (1.7-2.4) mg/dl Total Bilirubin 0.8 (0.2-1.0) mg/dl AST 23 (13-39) U/L ALT 15 (7-52) U/L Alkaline Phosphatase 63 (34-104) U/L Troponin I High Sens 4.9 (0-14) pg/ml Total Protein 7.5 (6.0-8.3) gm/dl Albumin 4.7 (3.4-5.0) gm/dl Globulin 2.8 (2.5-4.0) gm/dl Albumin/Globulin Ratio 1.7 (0.9-2) Lipase 48 (11-82) U/L SARS-CoV-2, RNA, NAAT NEGATIVE (NEGATIVE) 06/09/22 Range/Units 14:16 WBC (4.8-10.8) K/ul RBC (3.93-5.22) M/uL Hgb (12.0-16.0) g/dl Hct (34.1-44.9) % MCV (80.0-100.0) fL MCH (25.0-34.0) pg MCHC (32.0-36.0) g/dL RDW Std Deviation (36.4-46.3) fL RDW Coeff of Mary (11.5-14.5) % Plt Count (130-400) K/uL MPV (9.4-12.3) fL Immature Gran % (Auto) % Neut % (Auto) % Lymph % (Auto) % [place] % (Auto) % Eos % (Auto) % Baso % (Auto) % Neut # (Auto) (1.4-6.5) K/uL Lymph # (Auto) (1.2-3.4) K/uL [place] # (Auto) (0.24-0.82) K/uL Eos # (Auto) (0-0.50) K/uL Baso # (Auto) (0-0.2) K/uL Immature Gran # (Auto) (0.00-0.02) K/uL Sodium (136-145) mmol/L Potassium (3.5-5.1) mmol/L Chloride (98-107) mmol/L Carbon Dioxide (21-32) mmol/L Anion Gap (3-11) BUN (6-23) mg/dl Creatinine (0.6-1.2) mg/dl Est Cr Clr Drug Dosing ml/min Est GFR ( Amer) ml/min Est GFR (Non-Af Amer) ml/min BUN/Creatinine Ratio (10-20) Glucose (70-99(Fasting)) mg/dl Calcium (8.5-10.1) mg/dl Magnesium (1.7-2.4) mg/dl Total Bilirubin (0.2-1.0) mg/dl AST (13-39) U/L ALT (7-52) U/L Alkaline Phosphatase (34-104) U/L Troponin I High Sens 5.0 (0-14) pg/ml Total Protein (6.0-8.3) gm/dl Albumin (3.4-5.0) gm/dl Globulin (2.5-4.0) gm/dl Albumin/Globulin Ratio (0.9-2) Lipase (11-82) U/L SARS-CoV-2, RNA, NAAT (NEGATIVE) Diagnostic Findings Chest X-Ray 06/09/22 11:51 SINGLE VIEW CHEST CLINICAL HISTORY: Atypical chest pain. FINDINGS: 2 AP, portable, upright chest radiographs are compared to study dated 04/20/2022 and correlated with chest CT dated 04/21/2022. The heart is enlarged noting atherosclerotic calcification of the thoracic aorta. The pulmonary vasculature is noncongested. Chronic interstitial thickening is similar to previous. The lungs and pleural spaces are clear noting bibasilar scarring/atelectasis. No pneumothorax is seen. The skeletal structures are osteopenic. The bony thorax is grossly intact. Cholecystectomy clips are seen in the right upper quadrant. IMPRESSION: Cardiomegaly with no active disease in the chest. ACT 112: Negative or not required by law. Electronically signed by: Christian Sorensen M.D. 06/09/2022 12:19 PM ECG Additional Comments: Sinus rhythm with Premature supraventricular complexes Pulmonary disease pattern Incomplete right bundle branch block Left anterior fascicular block Septal infarct , age undetermined Abnormal ECG When compared with ECG of 21-APR-2022 02:02, Premature supraventricular complexes are now Present Incomplete right bundle branch block is now Present Septal infarct is now Present. Code Status & VTE Plan Code Status Full Code. Supervising Physician Co-Signing Physician Notes Patient seen and examined, chart reviewed, case discussed with Keyonna King and I agree with the assessment and plan as above except as otherwise noted Labs and images reviewed Evangelina is an 82-year-old female with past medical history of recurrent shortness of breath associated with chest pain which radiates into her neck and prior negative troponin series. Patient is with anginal symptoms exacerbated by activity, EKG with chronic T wave inversions but no ST segment elevations. History of diabetes, does have a history of hypertension. Patient has not improved in the prior month, was scheduled for stress test but had an episode of prolonged pain as noted prior to this and present to the ER for evaluation. At bedside she is breathing comfortably, lungs are clear, heart is regular, initial troponin is negative. Heart score is 6. Given risk and anginal equivalent symptoms which improved with rest recommend admitting, troponin series, and consultation with cardiology for catheterization versus potential inpatient stress test. Agree with management above. 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
[2022-06-09] MEDS ORDERED: hydroCHLOROthiazide 25 MG TAB PO STA (15:45)
[2022-06-09] MEDS ORDERED: NITROGLYCERIN SL 0.4 MG/TAB TAB SL PRN (17:56)
[2022-06-09] MEDS ORDERED: MoRPHine SULFATE 2 MG/ML CARP IV PRN (17:56)
[2022-06-09] MEDS ORDERED: LABETALOL HCL IV 5 MG/ML 20ML IV STA ×2 (18:03→19:28)
--- NOTE | 2022-06-09 23:01 | Cardiology Consultation ---
Date of Consultation June 09, 2022 Assessment & Plan (1) Unstable angina: (2) CAD in [place] artery: (3) Hx of heart artery stent: (4) Hypertension: (5) Hyperlipidemia: (6) Lightheadedness: (7) Dyspnea on exertion: Plan ASSESSMENT/PLAN: 1.Unstable angina: Based on her description, symptoms concerning for unstable angina. NPO after midnight. Cardiac catheterization recommended. Risks and benefits were discussed with her in detail. She was made aware that CT surgery is not available at this facility. If she should have recurrent chest pain or her troponins become elevated, would recommend heparin drip. Continue anti- platelet therapy. She apparently was allergic to metoprolol but has been given labetalol during this hospital stay for hypertension. If she tolerates some form of beta-frances, may be able to initiate long-term beta-frances. 2. CAD s/p LAD PCI: Concerning for angina as above. Continue anti-platelet therapy indefinitely given prior LAD PCI. Reportedly had rash on metoprolol in the past. Continue statin therapy. She has not tolerated nitroglycerin. 3. Hypertension: Blood pressure became more significantly elevated after discussing the above plan. She later received labetalol by other providers with improvement of her blood pressure. HCTZ has been discontinued as an outpatient due to lightheadedness concerning for orthostatic hypotension. Continue losartan and may titrate or initiate calcium channel frances which also has antianginal properties. 4. Dyslipidemia: LDL reasonably controlled but goal LDL <70 given history of CAD. HDL is excellent. She has not tolerated atorvastatin or rosuvastatin. She has declined PCSK 9 inhibitor, but discussed once more today and she seemed willing to consider in the future. She has not tolerated pravastatin 20 mg daily. Continue pravastatin 10 mg and Zetia for now. 5. Lightheadedness: Suspicious for orthostatic symptoms. Orthostatic vitals ordered for the morning. Recommended that she remain well hydrated and use compression stockings as an outpatient. 6. Dyspnea on exertion: She appears euvolemic. Plan as above. 7. Disposition: Cardiology will continue to follow. Plan of care communicated with primary hospitalist Service, Keyonna King. Highly complex medical issues. Thank you for allowing me to participate in the care of your patient. Please call for any other questions or concerns. Sincerely, Mauricio Bishop M.D. History of Present Illness Reason for Consultation: Chest pain with history of CAD Requesting Physician: Andrea Hernandez MD Attending Physician: Andrea Hernandez MD History of Present Illness Mrs. Sandoval is a very pleasant 82-year-old female with a history significant for CAD status post LAD PCI, hypertension, and dyslipidemia. She states that in 2007 she had shortness of breath and exertional neck pain. She went to the hospital in [place], [place] and underwent cardiac catheterization. She was told that she had a 95% stenosis within her LAD and received a stent. She did not notice any significant improvement in her symptoms however, following PCI. At that time she was started on Lipitor and for the next several months felt quite poorly with chest pain, weakness, and tachycardia. She eventually felt better off of statin therapy. She had similar symptoms with Crestor and Zetia. She reports having another cardiac catheterization only a few days after her PCI when she presented to another hospital with hypertension. Stent was reportedly patent. She has had the following studies/procedures: 1. Cardiac catheterization 02/17/2008 at [facility]: Reportedly 95% LAD lesion which underwent 3.5 x 28 mm Promus stent. 2. Cardiac catheterization February 2008 at other hospital: Stent patent per her report. 3. Nuclear stress 04/18/2015: Negative for ischemia or infarct. EF 67% Catalino protocol. Exercised 8 minutes 46 seconds. 100% MPHR. Negative exercise ECG. 4. Echo 01/04/2017: Normal LV size, systolic function, wall motion. EF 60- 65%. No significant diastolic dysfunction or LVH. No significant valvular abnormalities. RVSP 26. 5. Stress Echo 02/04/2018: Negative stress echo at 98% MPHR. 7 minutes 1 second Catalino protocol. Hypertensive response. Negative ECG. EF 55-60%. Norm al wall motion. Type 1 diastolic dysfunction. Normal RVSP. No significant valvular abnormalities. 6. Stress echo 12/04/2020: Negative stress echo and ECG 104% MPHR. No chest pain. 7 minutes 7 seconds Catalino protocol. Resting EF 60-65%. Normal wall motion. No significant valvular abnormalities. Normal RVSP. 7. Event Monitor 05/23/2021 to 06/05/2021: Sinus rhythm. Paroxysmal nonsustained atrial tachycardia. Frequent PACs. 158 symptomatic episodes reported, typically correlating with isolated PACs. 8. Stress echo 06/01/2021 [facility]: Negative stress echo and ECG 103% MPHR. Appropriate blood pressure response. 6 minutes 55 seconds. No chest pain. 9. Event monitor 04/28/2022 to 05/11/22: Sinus rhythm. Average HR 69. 1 episode nonsustained SVT of 17 beats. PACs and PVCs. Thirty-seven symptomatic episodes, typically occurring during sinus rhythm and PACs. She was last seen in the cardiology office on 05/28/2022 by Ms. Elyse Hector at which point a stress test was ordered for chest pain. She went to the emergency department on 04/20/2022 for chest pain that was prolonged for several hours, and reported as at least 24 hours. High sensitivity troponins were not elevated. On 04/21/2022 at 1:46 a.m., she had an unwitnessed fall in the bathroom during the hospital stay. Her heart rate was 57 with a blood pressure of 70/39 and normal oxygen saturation on room air. When she went to the bathroom and stood up she had acute lightheadedness and fell to the floor she had received nitropaste prior. She presented to the emergency department today after calling the Cardiology outpatient office for chest pain and shortness of breath. While grocery shopping, she developed shortness of breath while walking that resolved after 10-15 minutes of sitting. She had no chest pain. She did however have chest pain first thing this morning described as a substernal chest pressure that occurred when she walked to the bathroom after leaving bed. It radiated to the neck and jaw and resolved within 2-3 minutes of rest. There was a tingling sensation in her arm but no diaphoresis or shortness of breath. Then while in the emergency department, she had another episode of chest pressure while sitting in bed. Up until that point, her symptoms have been occurring only with exertion. This particular episode resolved within 45 minutes. Her exertional chest discomfort has been increasing in frequency and has been taking less and less exertion to cause her chest pressure. She has been dealing with lightheadedness and stop HCTZ which she initially felt helped but now is not so sure. Her systolic blood pressure at home is typically 130-150. She remains well hydrated but does not use compression stockings. She had been walking for exercise but for the most part stopped due to lightheadedness. She recently resumed and walked a mi yesterday but had chest pain near the end of the walk which resolved within 10-15 minutes of rest. She also has had recurrent posterior headaches. She denies edema, palpitations, orthopnea, shortness of breath at rest, melena, hematochezia, or hematuria. A stress test is still pending from her last office visit on 05/28/2022 but she is not sure that she can perform the stress test due to her symptoms. Review of systems:As above. Review of systems otherwise negative/unremarkable. Family history:Father at the age of 32 with myocardial infarction. Brother had 1st myocardial infarction at 51. Social history: Denies tobacco, alcohol, or drug abuse. She had 3 children, but her son from cancer in summer 2018. One daughter, Rocio, moved in with her from [place], and another daughter, Nayla Mckeon, lives in [place]. She has grandchildren. Her is ill and she cares for him. She was alone in her ER room for today's consult. Allergies Allergy/AdvReac Type Severity Reaction Status Date / Time doxycycline Allergy Unknown rash Verified 05/28/22 13:13 metoprolol Allergy Unknown severe Verified 05/28/22 13:13 rash over entire body atorvastatin AdvReac Unknown causes Verified 05/28/22 13:13 sereve weakness and chest pain, do not give nitroglycerin AdvReac Unknown severe Verified 05/28/22 13:13 drop in blood pressure rosuvastatin AdvReac Unknown causes Verified 05/28/22 13:13 sereve weakness and chest pain, do not give Home Medications Medication Instructions Recorded Confirmed Type ascorbic acid (vitamin C) 500 mg 500 mg PO DAILY 02/27/19 06/09/22 History capsule aspirin 81 mg tablet 81 mg PO DAILY 02/27/19 06/09/22 History calcium 650 mg-vitamin D3 12.5 1 tab PO DAILY 02/27/19 06/09/22 History mcg-vitamin K 40 mcg chewable tablet (Viactiv) ezetimibe 10 mg tablet (Zetia) 10 mg PO DAILY #90 tabs 10/02/21 06/09/22 Rx levothyroxine 75 mcg tablet 75 mcg PO QAM #90 tabs 11/07/21 06/09/22 Rx losartan 50 mg tablet 50 mg PO DAILY #90 tabs 12/12/21 06/09/22 Rx pravastatin 10 mg tablet 10 mg PO DAILY #90 tabs 03/16/22 06/09/22 Rx Patient History Medical History (Updated 06/09/22 @ 23:18 by Yohannes Bishop MD) Arthritis CAD in [place] artery Essential (primary) hypertension Fracture of right ankle, lateral malleolus GERD without esophagitis Gout Hyperlipidemia Hypothyroidism Nondisplaced fracture of fifth right metatarsal bone Nondisplaced fracture of left radial styloid process, initialencounter for closed fracture Syncope Varicose vein of leg Surgical History (Updated 06/09/22 @ 23:18 by Yohannes Bishop MD) H/O colonoscopy H/O endoscopy H/O partial thyroidectomy H/O tubal ligation Hx of cholecystectomy Hx of heart artery stent Hx of tonsillectomy Family History Brother Pancreatic cancer Prostate cancer Diabetes Gallbladder disease Cardiac disorder Hypertension Lymphedema Colon cancer FHx: kidney cancer Myocardial infarction FHx: allergies Mother Pancreatic cancer Cancer Aunt Colon cancer Deafness Son FHx: kidney cancer Father Myocardial infarction Grandmother Myocardial infarction Grandfather Stroke Other Heart disease No family history of bleeding disorder Denies family history of Ovarian cancer Adverse anesthesia outcome Breast cancer Asthma Social History Smoking Status: Never smoker Second Hand Exposure: No; Hx Alcohol Use: No Hx Substance Use: No Preferred Language: Mongolian Communication Ability: Effective Communication Ability Comment: glasses/WASHOE Visual Impairment: No Limitations Hearing Ability: Use of Hearing Aid Nurse Leader Required: No Beliefs That Will Affect Care: None marital status: Current Living Situation: Spouse Current Living Situation Comment: House current occupational status: retired 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 Alert and oriented. HEENT: Anicteric sclera. Neck: No JVD. No bruits. Normal carotid upstrokes bilaterally. Cardiac: PMI was nondisplaced. No ventricular heave. Regular. Normal S1-S2. No murmurs, rubs, or gallops. Pulmonary: Clear to auscultation bilaterally without wheezes, rales, or rhonchi. Abdomen: Soft, nontender, nondistended, with normoactive bowel sounds. No bruits noted. Extremities: 2+ radial pulses bilaterally. 2+ posterior tibialis pulses bilaterally. No edema or cyanosis. Psychiatric: Affect appears appropriate. Chest: Nontender to palpation. Results & Data ([facility]) Vital Signs (Past 12 Hours) Vital Signs Temp Pulse Pulse Resp BP BP Pulse Ox 06/09/22 19:51 80 06/09/22 22:35 36.6 C 80 18 125/65 97 06/09/22 21:34 36.5 C 60 16 128/66 97 06/09/22 19:36 36.5 C 81 20 170/87 H 96 06/09/22 18:13 85 06/09/22 17:59 37.0 C 115 H 18 207/90 H 96 06/09/22 15:00 73 15 175/92 H 98 06/09/22 13:00 78 17 190/78 H 99 06/09/22 11:51 95 06/09/22 11:38 95 06/09/22 11:34 73 21 193/106 H 95 06/09/22 11:18 36.7 C 84 20 186/84 H 98 O2 Del Method O2 Flow Rate 06/09/22 19:51 06/09/22 22:35 Room Air 06/09/22 21:34 Room Air 06/09/22 19:36 Room Air 06/09/22 18:13 06/09/22 17:59 Room Air 06/09/22 15:00 Room Air 06/09/22 13:00 Room Air 06/09/22 11:51 Room Air 06/09/22 11:38 Room Air 0 06/09/22 11:34 Room Air 06/09/22 11:18 Room Air Laboratory Results Laboratory Results - last 24 hr 06/09/22 06/09/22 06/09/22 11:30 11:30 12:45 WBC 5.24 RBC 4.51 Hgb 14.3 Hct 40.4 MCV 89.6 MCH 31.7 MCHC 35.4 RDW Std Deviation 39.0 RDW Coeff of Mary 12.1 Plt Count 241 MPV 10.3 Immature Gran % (Auto) 0.2 Neut % (Auto) 50.9 Lymph % (Auto) 37.8 [place] % (Auto) 8.8 Eos % (Auto) 2.1 Baso % (Auto) 0.2 Neut # (Auto) 2.67 Lymph # (Auto) 1.98 [place] # (Auto) 0.46 Eos # (Auto) 0.11 Baso # (Auto) 0.01 Immature Gran # (Auto) 0.01 Sodium 138 Potassium 3.9 Chloride 102 Carbon Dioxide 30 Anion Gap 6 BUN 17 Creatinine 0.87 Est Cr Clr Drug Dosing 41.2 Est GFR ( Amer) 71.9 Est GFR (Non-Af Amer) 62.0 BUN/Creatinine Ratio 19.5 Glucose 86 Calcium 9.7 Magnesium 2.1 Total Bilirubin 0.8 AST 23 ALT 15 Alkaline Phosphatase 63 Troponin I High Sens 4.9 Total Protein 7.5 Albumin 4.7 Globulin 2.8 Albumin/Globulin Ratio 1.7 Lipase 48 SARS-CoV-2, RNA, NAAT NEGATIVE 06/09/22 06/09/22 14:16 22:35 WBC RBC Hgb Hct MCV MCH MCHC RDW Std Deviation RDW Coeff of Mary Plt Count MPV Immature Gran % (Auto) Neut % (Auto) Lymph % (Auto) [place] % (Auto) Eos % (Auto) Baso % (Auto) Neut # (Auto) Lymph # (Auto) [place] # (Auto) Eos # (Auto) Baso # (Auto) Immature Gran # (Auto) Sodium Potassium Chloride Carbon Dioxide Anion Gap BUN Creatinine Est Cr Clr Drug Dosing Est GFR ( Amer) Est GFR (Non-Af Amer) BUN/Creatinine Ratio Glucose Calcium Magnesium Total Bilirubin AST ALT Alkaline Phosphatase Troponin I High Sens 5.0 13.5 D Total Protein Albumin Globulin Albumin/Globulin Ratio Lipase SARS-CoV-2, RNA, NAAT Diagnostic Findings ECG personally reviewed 06/09/2022: Sinus rhythm with PACs 90 bpm. Incomplete RBBB. Possible septal infarct. LAFB. Chest x-ray 06/09/2022: No active disease in the chest per Radiology. CTA chest 04/21/2022: No acute intrathoracic abnormality. No pulmonary emboli. Medications Administered Current Inpatient Medications Ascorbic Acid (Ascorbic Acid 500 Mg Tab) 500 mg PO DAILY JEAN Stop: 07/10/22 08:59 Aspirin (Aspirin 81 Mg Ectab) 81 mg PO DAILY JEAN Stop: 07/10/22 08:59 Ezetimibe (Ezetimibe 10 Mg Tablet) 10 mg PO DAILY JEAN Stop: 07/10/22 08:59 Hydrochlorothiazide (Hydrochlorothiazide 25 Mg Tab) 12.5 mg PO QAM JEAN Stop: 07/10/22 08:59 Levothyroxine Sodium (Levothyroxine Sodium 75 Mcg Tablet) 75 mcg PO DAILYBB JEAN Stop: 07/10/22 06:29 Losartan Potassium (Losartan Potassium 50 Mg Tab) 50 mg PO DAILY JEAN Stop: 07/10/22 08:59 Morphine Sulfate (Morphine Sulfate 2 Mg/Ml Carp) 2 mg IV Q30M PRN PRN Reason: Chest Pain Stop: 06/23/22 17:55 Nitroglycerin (Nitroglycerin Sl 0.4 Mg/Tab Tab) 0.4 mg SL Q5M PRN PRN Reason: Chest Pain Stop: 07/09/22 17:55 Pravastatin Sodium (Pravastatin Sod 10 Mg Tab) 10 mg PO DAILY JEAN Stop: 07/10/22 08:59 PG Care Time/CCT Total # of Minutes Spent Total Time Spent with Patient: Total time spent is greater than 50% in coordination of care (as documented) at patient's floor/unit and/or counseling patient: Coding Level of Care Code 42350 Office/Outpt Visit, Est Diagnoses Unstable angina I20.0 CAD in [place] artery I25.10 Hx of heart artery stent Z95.5 Hypertension I10 Hyperlipidemia E78.5 Lightheadedness R42 Dyspnea on exertion R06.09
[2022-06-10] MEDS ORDERED: LEVOTHYROXINE SODIUM 75 MCG TABLET PO SCH (06:30)
[2022-06-10] MEDS ORDERED: LIDOCAINE 1% LOCAL 20 ML VIAL ONE (07:01)
[2022-06-10] MEDS ORDERED: Nursing to Pharmacy Communication SCH (08:00)
[2022-06-10] MEDS ORDERED: MIDAZOLAM HCL 1 MG/ML 2ML VIAL ONE (08:28)
[2022-06-10] MEDS ORDERED: niCARdipine HCL INJ 2.5 MG/ML 10 ML AMP ONE (08:28)
[2022-06-10] MEDS ORDERED: HEPARIN (PORCINE) 1000 UNIT/ML 10 ML (CATH LAB USE ONLY) ONE (08:28)
[2022-06-10] MEDS ORDERED: fentaNYL citrate 100 MCG/2 ML VIAL ONE (08:28)
[2022-06-10] MEDS ORDERED: NITROGLYCERIN/D5W 100MCG/ML 20ML SYR ONE (08:29)
[2022-06-10] MEDS ORDERED: LOSARTAN POTASSIUM 50 MG TAB PO SCH (09:00)
[2022-06-10] MEDS ORDERED: ASCORBIC ACID 500 MG TAB PO SCH ×2 (09:00→11:30)
[2022-06-10] MEDS ORDERED: ASPIRIN 81 MG ECTAB PO SCH (09:00)
[2022-06-10] MEDS ORDERED: EZETIMIBE 10 MG TABLET PO SCH ×2 (09:00→11:30)
[2022-06-10] MEDS ORDERED: PRAVASTATIN SOD 10 MG TAB PO SCH ×2 (09:00→21:00)
[2022-06-10] MEDS ORDERED: hydroCHLOROthiazide 25 MG TAB PO SCH (09:00)
--- NOTE | 2022-06-10 09:11 | Pre Anesthesia Assessment ---
Date of Service June 10, 2022 Pre Sedation Assessment Vital Signs Temp Pulse Pulse Resp BP BP Pulse Ox 06/10/22 08:29 74 18 175/74 H 97 06/10/22 07:57 36.8 C 74 18 132/60 96 06/10/22 03:00 36.8 C 76 18 117/68 98 06/09/22 22:18 60 06/09/22 19:51 80 06/09/22 22:35 36.6 C 80 18 125/65 97 06/09/22 21:34 36.5 C 60 16 128/66 97 06/09/22 19:36 36.5 C 81 20 170/87 H 96 06/09/22 18:13 85 06/09/22 17:59 37.0 C 115 H 18 207/90 H 96 06/09/22 15:00 73 15 175/92 H 98 06/09/22 13:00 78 17 190/78 H 99 06/09/22 11:51 95 06/09/22 11:38 95 06/09/22 11:34 73 21 193/106 H 95 06/09/22 11:18 36.7 C 84 20 186/84 H 98 O2 Del Method O2 Flow Rate 06/10/22 08:29 Room Air 06/10/22 07:57 Room Air 06/10/22 03:00 Room Air 06/09/22 22:18 06/09/22 19:51 06/09/22 22:35 Room Air 06/09/22 21:34 Room Air 06/09/22 19:36 Room Air 06/09/22 18:13 06/09/22 17:59 Room Air 06/09/22 15:00 Room Air 06/09/22 13:00 Room Air 06/09/22 11:51 Room Air 06/09/22 11:38 Room Air 0 06/09/22 11:34 Room Air 06/09/22 11:18 Room Air Cardiovascular RRR, no murmur, no edema Respiratory normal respiratory effort, lungs clear to auscultation Pre-Sedation Airway Assessment Smoking Status: Never smoker Short, Thick Neck: No Thyromental Distance: > or= 3.5 Finger Breadths Oral Cavity: + WNL Mallampati Class: II ASA: ASA3 NPO Status Date of Last Intake of Fluids: 06/10/22 Time of Last Intake of Fluids: 06:00 Last Oral Intake of Fluids Comment: sips with meds Date of Last Intake of Solid Food: 06/09/22 Time of Last Intake of Solid Foods: 20:00 Procedure Planning Contraindications for Sedation: none Current Medications Reviewed: Yes Notes The planned sedation has been discussed with the patient. Informed Consent was obtained. I have identified the patient, determined the appropriateness of sedation and have assessed the patient immediately prior to the procedure. All medicine(s) and interventions are by my order.
--- NOTE | 2022-06-10 10:04 | Cardiac Catheterization ---
[employer] Data: Counter Checker Cardiac Status Clinical evaluation leading to the procedure CAD Presenation: Unstable angina Anginal Classification: CCS III Heart Failure: No Cardiogenic Shock within 24 Hours: No Cardiac Arrest within 24 Hours: No Imaging Studies Past 6 Months: Yes Stress Studies Past 6 Months: No Coronary Anatomy Dominant: Left Diagnostic Physicians Name: Yohannes Bishop MD Status: Elective Closure Device Percutaneous Entry Location: Radial Closure Device: Radial Band Recommendations: Management Recommendatons Cardiac Cath Procedure Full Procedure Date June 10, 2022 Pre-Procedure Diagnosis Pre-Procedure Diagnosis: Angina and CAD AUC Score AUC Score: 7 Post-Procedure Diagnosis Post-Procedure Diagnosis: Mild CAD and Normal Intracardiac Pressures Procedure(s) Performed Procedure(s) Performed: Coronary Angiography and Left Heart Cath Brush Finisher Yohannes Bishop MD Wire Turning Machine Operator(s) Todd Estimated Blood Loss Estimated Blood Loss: < 20 ml Medication(s) Medication(s): Fentanyl, Heparin, Lidocaine 1%, Nicardipine and Versed Summary of Findings Procedures: 1. Coronary angiography 2. Left heart catheterization 3. Moderate sedation Indications: 82-year-old female with history of CAD and mid LAD stent in 2007 who presented with symptoms concerning for unstable angina. She also has a history of hypertension and dyslipidemia. Coronary angiography: 1. Left main: No significant CAD. 2. Left anterior descending: Large caliber vessel that wraps around the apex. Proximal LAD 20%. Early mid LAD 30 to 40% stenosis involving proximal portion of mid LAD stent. Remainder of LAD stent appears to have no significant in- stent restenosis. Distal LAD 20 to 30%. Small D1 and D2. 3. Circumflex: Large and dominant. High OM1 with proximal/mid 30%. PL and PDA without significant CAD. 4. Right coronary artery: RCA is small and nondominant. Left heart catheterization: 1. Left ventriculography was not performed. 2. No aortic stenosis. 3. Normal LVEDP; 11 mmHg. Moderate sedation: 1. Sedation start time: 9:34 AM 2. Sedation end time: 9:58 AM Impression: 1. Nonobstructive CAD within the LAD and OM1. 2. Mild nonobstructive in-stent restenosis involving the mid LAD stent. 3. Normal left-sided filling pressure. 4. No aortic stenosis. Plan: 1. Risk factor modification. 2. Investigate possible noncardiac chest discomfort etiologies. Hemodynamics Rest Ao:: 137/55 Final Ao: 153/63 LV: 155/11 Recommendations Recommendations: Management Recommendatons Specimens Specimens: None Radiation Exposure (mGy) 167 mGy. Fluoro time 4 min. Contrast (mls) 40 ml Procedural Complication(s) None Disposition PCU I attest to the content of the Intraoperative Record and any orders documented therein. Any exceptions are noted below. [facility] Card Cath Procedure Codes Cardiac Catheterization Procedure 1: Cardiovascular Cath Procedures: 43653 Coronaries and LHC (+/-LV) Moderate Sedation Procedure 1: Sedation/Anesthesia: 05752 Mod Sedation by the same physician;Init15 Min Child Age 5 & Up Procedure 2: Sedation/Anesthesia: 49399 Mod Sedation by the same physician; Ea [id number] Minutes PG Care Time/CCT Total # of Minutes Spent Total Time Spent with Patient: Total time spent is greater than 50% in coordination of care (as documented) at patient's floor/unit and/or counseling patient:
--- NOTE | 2022-06-10 10:18 | Post Anesthesia Assessment ---
Date of Service June 10, 2022 Post Sedation Assessment Vital Signs Temp Pulse Pulse Resp BP BP Pulse Ox 06/10/22 10:00 70 16 137/68 98 06/10/22 09:32 68 06/10/22 09:32 06/10/22 08:29 74 18 175/74 H 97 06/10/22 07:57 36.8 C 74 18 132/60 96 06/10/22 03:00 36.8 C 76 18 117/68 98 06/09/22 22:18 60 06/09/22 19:51 80 06/09/22 22:35 36.6 C 80 18 125/65 97 06/09/22 21:34 36.5 C 60 16 128/66 97 06/09/22 19:36 36.5 C 81 20 170/87 H 96 06/09/22 18:13 85 06/09/22 17:59 37.0 C 115 H 18 207/90 H 96 06/09/22 15:00 73 15 175/92 H 98 06/09/22 13:00 78 17 190/78 H 99 06/09/22 11:51 95 06/09/22 11:38 95 06/09/22 11:34 73 21 193/106 H 95 06/09/22 11:18 36.7 C 84 20 186/84 H 98 O2 Del Method O2 Flow Rate 06/10/22 10:00 Room Air 06/10/22 09:32 06/10/22 09:32 Room Air 06/10/22 08:29 Room Air 06/10/22 07:57 Room Air 06/10/22 03:00 Room Air 06/09/22 22:18 06/09/22 19:51 06/09/22 22:35 Room Air 06/09/22 21:34 Room Air 06/09/22 19:36 Room Air 06/09/22 18:13 06/09/22 17:59 Room Air 06/09/22 15:00 Room Air 06/09/22 13:00 Room Air 06/09/22 11:51 Room Air 06/09/22 11:38 Room Air 0 06/09/22 11:34 Room Air 06/09/22 11:18 Room Air Recovery Score Activity: Moves 4 extremities Respiration: Deep Breath/Cough Circulation: +/-20% PreAnes Value Consciousness: Fully Awake Oxygen Saturation: > 92% On Room Air Post Anesthesia Score: 10 Discharge Sedation Level of Care: Fast Track Phase II Post Sedation Plan On clinical assessment, the patient appears to have tolerated the sedation without complications. Patient is recovering as anticipated. Patient will continue to be monitored by nursing and may be discharged when sedation discharge criteria are met per below protocol. Upon Completions of procedure up to 15 minutes continue every 5 minute vital signs and the P.A.R. score; then discharge to a Phase I or Fast Track to Phase II per the following guidelines: * Discharge Patient to appropriate Phase II area if PAR is 8 or greater or return to pre- procedure baseline. The post - procedure orders will be as directed. * If PAR score is less than 8 or not return to pre-procedure baseline then patient will follow Phase I monitoring till PAR is reached for Phase II. The Phase I may be done in procedure room or may call to secure a Phase I area. * If naloxone or flumazenil are used for reversal, hold in Phase I for continued monitoring from when last reversal dose was given for a minimum of 60 minutes or longer pending the nurse and/or physician discretion of patient condition before discharge to Phase II. Please call the Sedation Physician to re-evaluate and complete post-note for discharge to Phase II area. Do NOT discharge from procedure sedation or Phase 1 until post- sedation evaluation note is complete by procedure /sedation MD Sedation Discharge Instructions to be given to the patient at discharge to home.
[2022-06-10] MEDS ORDERED: SODIUM CHLORIDE 0.9% 1000ML 1,000 ML IV SCH (10:30)
--- NOTE | 2022-06-10 10:53 | Cardiology Progress Note ---
Date of Service June 10, 2022 Assessment & Plan (1) Unstable angina: (2) CAD in [place] artery: (3) Hx of heart artery stent: (4) Hypertension: (5) Hyperlipidemia: (6) Lightheadedness: (7) Dyspnea on exertion: Plan ASSESSMENT/PLAN: 1. Unstable angina: Symptoms were concerning for unstable angina but no obstructive CAD. Recommend evaluation for noncardiac chest pain. Optimize medical therapy for nonobstructive CAD. 2. CAD s/p LAD PCI: Continue anti-platelet therapy indefinitely given prior LAD PCI. Reportedly had rash on metoprolol in the past. Tolerated labetalol here. Could consider low-dose carvedilol as an outpatient if necessary but given orthostatic symptoms, will hold off for now. Blood pressure has been reasonably controlled when not anxious. Continue statin therapy. She has not tolerated nitroglycerin. 3. Hypertension: Blood pressure has been hypertensive but mostly when anxious. Blood pressure has been better controlled overnight and during catheterization. Has been having orthostatic symptoms. Will not adjust antihypertensive regimen at this time. 4. Dyslipidemia: LDL reasonably controlled but goal LDL <70 given history of CAD. HDL is excellent. She has not tolerated atorvastatin or rosuvastatin. She has declined PCSK 9 inhibitor, but discussed again and she will research it. For now, continue pravastatin 10 mg daily and Zetia. She has not tolerated pravastatin 20 mg daily. 5. Lightheadedness: Suspicious for orthostatic symptoms. Borderline orthostatic blood pressure today when going from a seated to standing position. Remain well hydrated. Recommended compression stockings. 6. Dyspnea on exertion: She appears euvolemic. LVEDP was normal. Nonobstructive CAD. Appears to be noncardiac. 7. Disposition: Can be discharged today from a cardiac perspective once recovered from cardiac catheterization and hemostasis achieved per protocol. Patient care communicated with primary hospitalist service, Dr. Gallego. Admission and Anticipated Discharge Date Admission Date: June 09, 2022 Subjective Patient underwent cardiac catheterization today. She had some brief chest pain different than her presenting symptoms while awaiting catheterization but admits that she was quite nervous. She was more hypertensive last evening in the ER and received a dose of labetalol and tolerated it well. Her blood pressure was better controlled throughout the night. She once again became hypertensive this morning while in the laboratory specialist holding area while she was anxious. She denies shortness of breath, palpitations, syncope, near-syncope, edema, or bleeding. Cardiac catheterization did not demonstrate any obstructive CAD. Her daughter, Nayla, was present at the bedside. Physical Exam Physical Exam: Gen.: No acute distress. Alert and oriented. HEENT: Anicteric sclera. Neck: No JVD. Cardiac: PMI was nondisplaced. No ventricular heave. Regular. Normal S1-S2. No murmurs, rubs, or gallops. Pulmonary: Clear to auscultation bilaterally without wheezes, rales, or rhonchi. Abdomen: Soft, nontender, nondistended, with normoactive bowel sounds. No bruits noted. Extremities: 2+ radial pulses bilaterally. 2+ posterior tibialis pulses bilaterally. No edema or cyanosis. Psychiatric: Affect appears appropriate. Results & Data ([facility]) Vital Signs (Past 12 Hours) Vital Signs Temp Pulse Pulse Resp BP Pulse Ox O2 Del Method 06/10/22 10:15 72 14 132/65 98 Room Air 06/10/22 10:00 70 16 137/68 98 Room Air 06/10/22 09:32 68 06/10/22 09:32 Room Air 06/10/22 08:29 74 18 175/74 H 97 Room Air 06/10/22 07:57 36.8 C 74 18 132/60 96 Room Air 06/10/22 03:00 36.8 C 76 18 117/68 98 Room Air Laboratory Results Laboratory Results - last 24 hr 06/09/22 06/09/22 06/09/22 11:30 11:30 12:45 WBC 5.24 RBC 4.51 Hgb 14.3 Hct 40.4 MCV 89.6 MCH 31.7 MCHC 35.4 RDW Std Deviation 39.0 RDW Coeff of Mary 12.1 Plt Count 241 MPV 10.3 Immature Gran % (Auto) 0.2 Neut % (Auto) 50.9 Lymph % (Auto) 37.8 [place] % (Auto) 8.8 Eos % (Auto) 2.1 Baso % (Auto) 0.2 Neut # (Auto) 2.67 Lymph # (Auto) 1.98 [place] # (Auto) 0.46 Eos # (Auto) 0.11 Baso # (Auto) 0.01 Immature Gran # (Auto) 0.01 Sodium 138 Potassium 3.9 Chloride 102 Carbon Dioxide 30 Anion Gap 6 BUN 17 Creatinine 0.87 Est Cr Clr Drug Dosing 41.2 Est GFR ( Amer) 71.9 Est GFR (Non-Af Amer) 62.0 BUN/Creatinine Ratio 19.5 Glucose 86 Calcium 9.7 Magnesium 2.1 Total Bilirubin 0.8 AST 23 ALT 15 Alkaline Phosphatase 63 Troponin I High Sens 4.9 Total Protein 7.5 Albumin 4.7 Globulin 2.8 Albumin/Globulin Ratio 1.7 Lipase 48 SARS-CoV-2, RNA, NAAT NEGATIVE 06/09/22 06/09/22 06/10/22 14:16 22:35 05:43 WBC RBC Hgb Hct MCV MCH MCHC RDW Std Deviation RDW Coeff of Mary Plt Count MPV Immature Gran % (Auto) Neut % (Auto) Lymph % (Auto) [place] % (Auto) Eos % (Auto) Baso % (Auto) Neut # (Auto) Lymph # (Auto) [place] # (Auto) Eos # (Auto) Baso # (Auto) Immature Gran # (Auto) Sodium Potassium Chloride Carbon Dioxide Anion Gap BUN Creatinine Est Cr Clr Drug Dosing Est GFR ( Amer) Est GFR (Non-Af Amer) BUN/Creatinine Ratio Glucose Calcium Magnesium Total Bilirubin AST ALT Alkaline Phosphatase Troponin I High Sens 5.0 13.5 D 13.0 Total Protein Albumin Globulin Albumin/Globulin Ratio Lipase SARS-CoV-2, RNA, NAAT Diagnostic Findings Telemetry personally reviewed: Sinus rhythm with PACs. No arrhythmia. Orthostatic vitals done earlier today demonstrated borderline to a standing position. She was asymptomatic. Cardiac Cath 06/10/22: Coronary angiography: 1. Left main: No significant CAD. 2. Left anterior descending: Large caliber vessel that wraps around the apex. Proximal LAD 20%. Early mid LAD 30 to 40% stenosis involving proximal portion of mid LAD stent. Remainder of LAD stent appears to have no significant in- stent restenosis. Distal LAD 20 to 30%. Small D1 and D2. 3. Circumflex: Large and dominant. High OM1 with proximal/mid 30%. PL and PDA without significant CAD. 4. Right coronary artery: RCA is small and nondominant. Left heart catheterization: 1. Left ventriculography was not performed. 2. No aortic stenosis. 3. Normal LVEDP; 11 mmHg. Medications Administered Current Inpatient Medications Ascorbic Acid (Ascorbic Acid 500 Mg Tab) 500 mg PO QDL [facility] Stop: 07/10/22 11:29 Aspirin (Aspirin 81 Mg Ectab) 81 mg PO DAILY JEAN Stop: 07/10/22 08:59 Last Admin: 06/10/22 07:48 Dose: 81 mg Ezetimibe (Ezetimibe 10 Mg Tablet) 10 mg PO QDL JEAN Stop: 07/10/22 11:29 Hydrochlorothiazide (Hydrochlorothiazide 25 Mg Tab) 12.5 mg PO QAM JEAN Stop: 07/10/22 08:59 Last Admin: 06/10/22 07:46 Dose: Not Given Sodium Chloride (Nss 1000ml) 1,000 mls @ 125 mls/hr IV .Q8H [facility] Stop: 06/10/22 14:30 Levothyroxine Sodium (Levothyroxine Sodium 75 Mcg Tablet) 75 mcg PO DAILYBB [facility] Stop: 07/10/22 06:29 Last Admin: 06/10/22 06:41 Dose: 75 mcg Losartan Potassium (Losartan Potassium 50 Mg Tab) 50 mg PO DAILY JEAN Stop: 07/10/22 08:59 Last Admin: 06/10/22 07:48 Dose: 50 mg Morphine Sulfate (Morphine Sulfate 2 Mg/Ml Carp) 2 mg IV Q30M PRN PRN Reason: Chest Pain Stop: 06/23/22 17:55 Nitroglycerin (Nitroglycerin Sl 0.4 Mg/Tab Tab) 0.4 mg SL Q5M PRN PRN Reason: Chest Pain Stop: 07/09/22 17:55 Pravastatin Sodium (Pravastatin Sod 10 Mg Tab) 10 mg PO HS [facility] Stop: 07/10/22 20:59 PG Care Time/CCT Total # of Minutes Spent Total Time Spent with Patient: Total time spent is greater than 50% in coordination of care (as documented) at patient's floor/unit and/or counseling patient: Coding Level of Care Code 70457 Office/Outpt Visit, Est Diagnoses Unstable angina I20.0 CAD in [place] artery I25.10 Hx of heart artery stent Z95.5 Hypertension I10 Hyperlipidemia E78.5 Lightheadedness R42 Dyspnea on exertion R06.09
--- NOTE | 2022-06-10 16:21 | XCELERA ---
[id number] \\[id number]
--- NOTE | 2022-06-10 17:08 | Discharge Summary ---
Date of Service June 10, 2022 Admission HPI Per Admitting Provider Evangelina Sandoval is an 82-year-old female with past medical history significant for CAD with PCI to LAD in 2007, hypertension, hyperlipidemia, hypothyroidism who presents today with chest pain. She was walking at a leisurely pace through the grocery store at the time, but was not pushing the cart or lifting groceries. She was severely short of breath and felt she could not catch any air. She sat in her car but symptoms did not immediately resolve with rest, however did eventually go away on their own after about 30 minutes. She has history of multiple episodes of chest pain that tend to radiate into her left neck and left shoulder, most recently hospitalized for such 1 month ago with negative work-up. She states she has been having this chest pain near daily and that it always goes away on its own, typically it comes on at rest or with very light activity. She is scheduled for a stress test early next month due to the ongoing chest pain. Upon presentation to the ED, patient's blood pressure is elevated to 186/84, otherwise within normal limits and stable. Labs unremarkable, initial troponin 4.9, repeat 5.0. CXR shows cardiomegaly without active disease in chest. Principal Diagnosis Atypical chest pain Dizziness Discharge Exam Constitutional WD/WN, vitals as above Respiratory normal respiratory effort, lungs clear to auscultation Cardiovascular RRR, no murmur, no edema Gastrointestinal (Abdomen) normal bowel sounds, soft, nontender, no hepatosplenomegaly Musculoskeletal no cyanosis or clubbing, extremities motor strength 5/5 Skin no rashes, warm and dry Psychiatric A+Ox3, euthymic affect Discharge Data Allergies Allergy/AdvReac Type Severity Reaction Status Date / Time doxycycline Allergy Unknown rash Verified 05/28/22 13:13 metoprolol Allergy Unknown severe Verified 05/28/22 13:13 rash over entire body atorvastatin AdvReac Unknown causes Verified 05/28/22 13:13 se[place] weakness and chest pain, do not give nitroglycerin AdvReac Unknown severe Verified 05/28/22 13:13 drop in blood pressure rosuvastatin AdvReac Unknown causes Verified 05/28/22 13:13 [place] weakness and chest pain, do not give Consultations 06/09/22 14:57 Consult Cardiology Stat 06/09/22 14:59 ED Decision to Admit Stat 06/09/22 17:56 Consult Cardiology Routine Procedures Performed Operation Date: 06/10/22 08:00 Actual Procedures p Cineradiography w/Routine Exam - Yohannes Bishop MD p Cath, Left with Cors and Vent - Yohannes Bishop MD Ordered Studies 06/10/22 08:07 CL Cath Imgs for PACS use only Routine Hospital Course (1) Chest pain: Evangelina Sandoval is an 82-year-old female who presents to the ER on advice of her speech instructor due to chest pain and dizziness. Serial troponins were negative. She was taken to the cardiac [employer]ician the following day which showed nonobstructive coronary artery disease which is not suspected to be the cause of her ongoing symptoms. She had a recent cardiac event monitor which also did not correlate with her symptoms suggesting this is noncardiac in nature. She initially had hypertensive urgency in the emergency room however refused her recently discontinued hydrochlorothiazide medication and her blood pressure returned to normal without this. She was not orthostatic on day of discharge off her hydrochlorothiazide. Given her blood pressures returned to normal we have continued her off the hydrochlorothiazide despite her initial high blood pressures. ESR and CRP were negative for alternative etiologies. Do not suspect her symptoms are GI in nature given lack of correlation history to eating. B12 level was low normal at 209 pg/ml, given her nonspecific symptoms recommend supplementation for this as prescribed below. She was advised to follow-up with her primary care physician for ongoing management of her B12 insufficiency and investigate noncardiac causes of her symptoms. (2) CAD in [place] artery: (3) Hypertension: (4) Hypothyroidism: Total Time Total Time Spent Total Time Spent (In Minutes): 40 Discharge Plan Discharge Items Patient Disposition: Home - Self-Care Reason For Visit: CHEST PAIN R/O Discharge Diagnosis: Atypical chest pain Dizziness Activity: Per Instructions section Non-emergency contact: Primary Care Provider Call non-emergency contact if: you have any medication questions and your symptoms worsen Follow-up/Referrals: Joyce Lester MD [Primary Care Provider] - Diet: Heart Healthy Addtl Attending Provider Instructions: Cardiac causes of your chest pain and dizziness have been ruled out. Given your current blood pressure measurements without hydrochlorothiazide recommend continuing to hold this medication if you feel your symptoms are better off it. Call your primary care provider if your resting blood pressure at home is greater than 180 to see if this needs to be re-introduced. Your B12 level was 209 pg/ml. This is low normal and recommend starting oral supplementation for this as prescribed below to see if it helps your symptoms. Inflammatory markers were normal. Please follow up with your primary care provider for your ongoing symptoms as no specific etiology has been found. ACTIVITY RECOMMENDATIONS: Excess manipulation of the wrist should be avoided for the next 24-48 hours. * No lifting over 2 pounds (approximately a 1/2 gallon of milk) with the utilized arm for 24 hours. * No strenuous activity such as bowling or tennis for 3 days. * Keep the site of the procedure covered with a bandage for 24 hours. *You may shower the day after the procedure. Do not take a tub bath or submerge the puncture site in water for the next 3 days. *Do not operate any motorized equipment for 3 days. SPECIAL CARE INSTRUCTIONS: The site may be slightly bruised and sore following your procedure. Should any of the following occur, contact the Dr. who performed your procedure. 1. Redness/inflammation, swelling, chills, or fever, or colored drainage at procedure site within 3-7 days after your procedure. 2. Coldness, discoloration, ongoing numbness, severe pain, or swelling. Expect mild tingling of hand and tenderness at the puncture site for up to three days. If this persists beyond three days, or other symptoms develop, notify the Dr. who performed your procedure. BLEEDING: If the procedure site on your wrist begins to bleed, do not panic 1. Place 1 or 2 fingers firmly just slightly above the insertion site to stop the bleeding. You may be able to feel your pulse as you hold pressure. 2. Lift your finger after 5 minutes to see if the bleeding has stopped. 3. Once the bleeding has stopped, gently wipe the wrist area clean with a bandage. * If the bleeding from your wrist does not stop after 10 minutes, or if there is a large amount of bleeding or spurting, call 911 (do not drive yourself to the hospital). SKIN IRRITATION: * You may experience some redness and/or swelling in the area where radiation was administered. If any skin irritation occurs, please contact your family physician. FOLLOW UP VISIT: Keep any scheduled doctor appointments. Pending Studies at Discharge: No Stand-Alone Forms: My [facility], Smoking Cessation Medications and DC Order Prescriptions: New cyanocobalamin (vitamin B-12) 1,000 mcg tablet 1,000 mcg PO DAILY Qty: 30 0RF Continued ezetimibe [Zetia] 10 mg tablet 10 mg PO DAILY Qty: 90 3RF pravastatin 10 mg tablet 10 mg PO DAILY Qty: 90 3RF calcium-vitamin D3-vitamin K [Viactiv] 650 mg-12.5 mcg-40 mcg tablet,chewable 1 tab PO DAILY ascorbic acid (vitamin C) 500 mg capsule 500 mg PO DAILY aspirin 81 mg tablet 81 mg PO DAILY losartan 50 mg tablet 50 mg PO DAILY Qty: 90 3RF levothyroxine 75 mcg tablet 75 mcg PO QAM Qty: 90 3RF Discharge Orders: Discharge Order (Routine); Ordered 06/10/22 Ordered By: Isaias Gallego Admission Data Admit Date/Time: 06/09/22 15:03 Attending Provider: Isaias Gallego Admit Provider: Andrea Hernandez Primary Care Provider: Joyce Lester Other Providers: Yohannes Bishop ; Andrea Hernandez Other Interventions: Discharge Summary Assessment (RN) Last Done: 06/10/22 17:17 Coding Level of Care Code 58300 OBS Care - Discharge Diagnoses Chest pain R07.9 CAD in [place] artery I25.10 Hypertension I10 Hypothyroidism E03.9
--- NOTE | 2022-06-11 06:18 | Electrocardiogram Report ---
Test Reason : Blood Pressure : / mmHG Vent. Rate : 090 BPM Atrial Rate : 090 BPM P-R Int : 158 ms QRS Dur : 098 ms QT Int : 362 ms P-R-T Axes : 080 -74 073 degrees QTc Int : 442 ms Sinus rhythm with Premature supraventricular complexes Incomplete right bundle branch block Left anterior fascicular block Septal infarct , age undetermined Abnormal ECG When compared with ECG of 21-APR-2022 02:02, Premature supraventricular complexes are now Present Incomplete right bundle branch block is now Present Septal infarct is now Present Confirmed by Yohannes Bishop ([id number] on 06/11/2022 6:18:15 AM Referred By: REFERRED SELF Confirmed By:Yohannes Bishop
--- NOTE | 2022-06-11 06:45 | Electrocardiogram Report ---
Test Reason : Blood Pressure : / mmHG Vent. Rate : 077 BPM Atrial Rate : 077 BPM P-R Int : 164 ms QRS Dur : 092 ms QT Int : 400 ms P-R-T Axes : 074 -72 064 degrees QTc Int : 452 ms Sinus rhythm with Premature supraventricular complexes Possible Left atrial enlargement Incomplete right bundle branch block Left anterior fascicular block Possible Septal infarct (cited on or before 09-JUN-2022) Abnormal ECG When compared with ECG of 09-JUN-2022 11:27, No significant change Confirmed by Yohannes Bishop ([id number] on 06/11/2022 6:45:21 AM Referred By: REFERRED SELF Confirmed By:Yohannes Bishop
--- NOTE | 2022-06-11 06:58 | Electrocardiogram Report ---
Test Reason : Blood Pressure : / mmHG Vent. Rate : 063 BPM Atrial Rate : 063 BPM P-R Int : 164 ms QRS Dur : 096 ms QT Int : 426 ms P-R-T Axes : 078 -66 042 degrees QTc Int : 435 ms Normal sinus rhythm Premature atrial complexes Possible Left atrial enlargement Incomplete right bundle branch block Left anterior fascicular block Septal infarct (cited on or before 09-JUN-2022) Abnormal ECG When compared with ECG of 10-JUN-2022 00:04, No significant change Confirmed by Yohannes Bishop ([id number] on 06/11/2022 6:57:38 AM Referred By: REFERRED SELF Confirmed By:Yohannes Bishop
== END 2022-06-10 17:42 | disposition home or self-care (01) ==
LOC: ED 11:15 → 2N 11:15 → SUATTDRO 15:03 → 2N 17:20 → 2S 19:36